=== PATIENT | female | born 1985 | race Caucasian/White ===

== ENCOUNTER → 2017-11-04 15:38 | Outpatient (CLI) | payer BC, SELFPAY ==
[2017-11-11 10:43] LABS: HPV Reflexed? NOT INDICATED
== END ==
PROVIDERS: Visit Provider Obstetrics & Gynecology
DX: Z12.4 Encounter for screening for malignant neoplasm of cervix (principal)
CPT/HCPCS: 88175; G0145

== ENCOUNTER → 2018-07-27 16:08 | Outpatient (CLI) | payer BC, SELFPAY | PROVIDERS: Family Provider Physician Assistant; PCP Physician Assistant; Referring Provider Otolaryngology Otolaryngology/Facial Plastic Surgery; Visit Provider Otolaryngology Otolaryngology/Facial Plastic Surgery | DX: J34.89 Other specified disorders of nose and nasal sinuses (principal); J32.9 Chronic sinusitis, unspecified | CPT/HCPCS: 87070; 87077; 87186; 87205 ==

== ENCOUNTER → 2018-11-30 | Outpatient (CLI) | payer BC, SELFPAY ==
[2018-12-08 17:07] LABS: HPV Reflexed? NOT INDICATED
== END | disposition home or self-care (01) ==
PROVIDERS: Visit Provider Obstetrics & Gynecology
DX: Z12.4 Encounter for screening for malignant neoplasm of cervix (principal)
CPT/HCPCS: 87624; 88175; G0145

== ENCOUNTER → 2020-02-08 14:52 | Outpatient (CLI) | payer BC, SELFPAY ==
[2020-02-13 14:45] LABS: HPV Reflexed? NOT INDICATED
== END ==
PROVIDERS: Visit Provider Obstetrics & Gynecology
DX: Z12.4 Encounter for screening for malignant neoplasm of cervix (principal)
CPT/HCPCS: 88175; G0145

== ENCOUNTER → 2021-02-12 15:38 | Outpatient (CLI) | payer BC, SELFPAY ==
[2021-02-18 23:45] LABS: HPV Reflexed? NOT INDICATED
== END ==
PROVIDERS: Visit Provider Obstetrics & Gynecology
DX: Z12.4 Encounter for screening for malignant neoplasm of cervix (principal)
CPT/HCPCS: 88175; G0145

== ENCOUNTER → 2022-06-19 | Outpatient (CLI) | payer BC, SELFPAY ==
[2022-06-25 21:41] LABS: HPV APTIMA, High Risk Negative (Negative)
== END | disposition home or self-care (01) ==
LOC: LABSPEC 09:34
PROVIDERS: Visit Provider Obstetrics & Gynecology
DX: Z12.4 Encounter for screening for malignant neoplasm of cervix (principal)
CPT/HCPCS: 87624; 88175; G0145

== ENCOUNTER → 2022-09-08 | Outpatient (CLI) | payer BC, SELFPAY ==
[2022-09-08 13:16] LABS: Estradiol < 11.0 pg/mL; Follicle Stimulating Hormone 5.1 mIU/mL; Luteinizing Hormone 2.8 mIU/mL; Prolactin 20.4 ng/mL; T4 Free Direct 1.15 ng/dL (0.76-1.46); Thyroid Stim Hormone (TSH) 1.57 uIU/mL (0.358-3.74)
[2022-09-11 14:50] LABS: Testosterone Free <0.2 pg/mL (0.0-4.2)
== END | disposition home or self-care (01) ==
LOC: WOBLAB 11:18
PROVIDERS: Visit Provider Student in an Organized Health Care Education/Training Program
DX: N64.4 Mastodynia (principal)
CPT/HCPCS: 36415; 82670; 83001; 83002; 84146; 84402; 84439; 84443

== ENCOUNTER → 2022-09-15 | Outpatient (CLI) | payer BC, SELFPAY ==
--- NOTE | 2022-09-15 08:41 | US_ITS ---
STUDY: ULTRASOUND BREAST - LEFT REASON FOR EXAM: Female, 37 years old. Palpable lump left breast. TECHNIQUE: Axial and longitudinal images of the LEFT breast were performed with a high resolution ultrasound transducer. # OF IMAGES: 49 COMPARISON: Comparison is made with prior mammogram done earlier in the day. FINDINGS: LEFT Breast: The palpable lump corresponds to a 1.5 cm x 1.3 cm x 1.6 cm simple cyst at the 2:00 position breast at 3 cm from the nipple. There is also evidence of 2, subcentimeter cysts adjacent to the dominant cystic structure. Incidental note is made of a 6 mm x 7 mm x 3 mm benign-appearing left axillary lymph node. . US/Breast Limited Unilateral IMPRESSION: The palpable lump corresponds to a 1.5 cm x 1.3 cm x 1.6 cm cyst at the 2:00 position breast at 3 some some nipple. ASSESSMENT CATEGORY: BIRADS Category 2: Benign. A letter regarding these results will be sent to the patient by the facility within 30 days. Electronically Signed: Kel Dimas MD at 14:32 EDT ,
--- NOTE | 2022-09-15 08:41 | BI_ITS ---
MAMMOGRAPHY - BILATERAL DIAGNOSTIC REASON FOR EXAM: Female, 37 years old. Left breast lump. PERTINENT HISTORY: Grandmother with breast cancer. TECHNIQUE: Digital bilateral breast dilia (3D mammographic acquisition) in the CC and MLO projections. 2-D mediolateral oblique (MLO) and craniocaudad (CC) views of both breasts were obtained. CAD: Full Field Digital Mammography with Computer Added Detection was performed. COMPARISON: None. Baseline examination. FINDINGS: Breast Composition: The breasts are extremely dense, which lowers the sensitivity of mammography. There are no dominant masses or suspicious calcifications. No other significant abnormalities are identified. BI/DIAG MAMM W/CAD, BILAT IMPRESSION: Negative diagnostic mammogram. With the patient''s history of a palpable lump in the left breast, correlation with ultrasound is recommended. ASSESSMENT CATEGORY: BIRADS Category 0: Incomplete. Need additional imaging evaluation. A letter regarding these results will be sent to the patient by the facility within 30 days. Approximately 10% of breast cancers are not detected by mammography. A normal mammogram should not delay biopsy of a clinically suspicious abnormality. Electronically Signed: Kel Dimas MD at 11:00 EDT ,
== END | disposition home or self-care (01) ==
PROVIDERS: PCP Physician Assistant; Referring Provider Student in an Organized Health Care Education/Training Program; Visit Provider Student in an Organized Health Care Education/Training Program
DX: N63.20 Unspecified lump in the left breast, unspecified quadrant (principal)
CPT/HCPCS: 76642; 77062; 77066; G0279

== ENCOUNTER → 2025-04-23 | Outpatient (CLI) | payer BC, SELFPAY ==
--- NOTE | 2025-04-23 07:13 | BI_ITS ---
EXAM: SCRN MAMM (CAD)W/VIDHI BILAT DATE: 04/23/2025 CLINICAL HISTORY: F, Age 40 y/o , SCREENING TECHNIQUE: Procedure Code: [id number] Modality: MG Procedure: SCRN MAMM (CAD)W/VIDHI BILAT COMPARISON: Prior exam(s) dated 09/15/2022. FINDINGS: TISSUE DENSITY: The breasts are heterogeneously dense, which may obscure small masses. Bilateral Breast Mammographic Findings: No significant masses, calcifications or other abnormalities are identified. There are nipple rings bilaterally. Benign round microcalcifications are seen in both breasts. BI/SCRN MAMM (CAD)W/VIDHI BILAT IMPRESSION: Benign screening mammogram. OVERALL FINAL ASSESSMENT BI-RADS 2: BENIGN RECOMMENDATION: Routine annual follow-up in 1 Year Additional Recommendation none A letter with findings and recommendations will be mailed to the patient. Reading Location: [id number]
--- OUTSIDE RECORDS SUMMARY | 2025-04-23 07:14 | XMS RPT_ITS | CCD ---
Author Organization [facility] Care Team Providers Care Acid Tank Liner Name Role Phone Shimon Smart MD Unavailable Ila Chen PA-C Primary Care Provider [phone] Ila Chen PA-C Primary Care Provider [phone] Ila Chen PA-C Primary Care Provider [phone] TREASURE ESCALONA Attending Unavailable Ila CHEN Primary Care Unavailable Ila Chen PA-C Primary Care Provider [phone] PHYSICIAN, NOT RECORDED Primary Care Physician U navailable Ila Chen PA-C Primary Care Provider [phone] Prince Chen PA-C Primary Care Provider Unavailable Haagen C++ PROFESSOR.Debbie KELLY Unavailable Suppan C++ PROFESSOR.ROBIN Nichole A Unavailable Suppan C++ PROFESSOR.ROBIN, Nichole A Unavailable [phone] Suppan C++ PROFESSOR.ROBIN, Nichole A Primary Care Provi forrest SUPPWILLOW NICHOLE A Referring Unavailable PRINCE CHEN Primary Care Unavailable PRINCE CHEN Primary Care Unavailable MARBELLA JAFFE Attending Unavailable SUPPWILLOW NICHOLE A Referring Unavailable PRINCE CHEN Primary Care Unavailable SUPPGALILEO DAUGHERTYNICHOLE A Attending Unavailable PRINCE CHEN Primary Care Unavailable PRINCE CHEN Referring Unavailable PRINCE CHEN Primary Care Unavailable Chen PA-CPrince Primary Care Provider Unavailable Suppan C++ PROFESSOR.ROBIN, Nichole A Unavailable Ila Carver Primary Care Unavailable Sylvester ZAVALA, Marbella Referring Unavailable Sylvester ROLLER PRINT TENDER, Marbella Attending Unavailable Assessment, Health Risk Attending Unavaila ble Ila Carver Primary Care Unavailable Allergies Allergy Classification Reported Allergen(s) Allergy Type Date of Onset Reaction(s) Facility (1 source) House dust mite; Translations: [DUST MITES] allergy to substance 0 [facility] Work Phone: (1 source) Kingdom Animalia; Translations: [ANIMALS] allergy to substance 0 [facility] Work Phone: (1 source) Mold Extract; Translations: [MOLD] Drug Allergy 0 [facility] Work Phone: (1 source) PLANT POLLENS; Translations: [PLANT POLLENS] allergy to substance 0 hay fever [facility] Work Phone: (1 source) STINGING INSECTS; Translations: [STINGING INSECTS] allergy to substance 0 [facility] Work Phone: (20 sources) Seasonal allergy; Translations: [SEASONAL ALLERGIES] Propensity to adverse reactions 3 Other: See Comments [facility] Medications Current Medications Medication Drug Class(es) Dates Sig (Normalized) Sig (Original) 12 hr buPROPion hydrochloride 150 mg extended release oral tablet (13 sources) Aminoketone Start: 03-20-2024 End: 09-16-2024 take 1 tablet by mouth twice daily buPROPion SR (WELLBUTRIN SR) 150 mg 12 hr tablet Indications: Weight loss Take 1 tablet by mouth two times a day. 60 tablet 5 03/20/2024 Active busPIRone hydrochloride 5 mg oral tablet (12 sources) Start: 12-23-2023 End: 08-06-2024 take 1 tablet by mouth three times daily as needed busPIRone (BUSPAR) 5 mg tablet Indications: Adjustment reaction with anxiety and depression Take 1 tablet by mouth three times a day as needed. 90 tablet 1 05/08/2024 08/06/2024 Active dicloxacillin 500 mg oral capsule (1 source) Penicillin-class Antibacterial Start: 07-17-2023 End: 07-27-2023 dicloxacillin 500 mg oral capsule Dose : 500 mg = 1 cap(s), Oral, q6h, X 10 day(s), # 40 cap(s), 0 Refill(s), 07/27/23 2:46:00 PM EST, 88.5 Start Date: 07/17/23 Stop Date: 07/27/23 Status: Ordered dilTIAZem (20 sources) Calcium Channel Freida Start: 04-18-2019 Diltiazem 2% Ointment (rectal fissures) Apply to rectum 2-3 times daily and as needed. (TAKE TO [facility] TO FILL) 60 g 2 04/18/2019 Active Comment on above: Apply to rectum 2-3 times daily and as needed. (TAKE TO [facility] TO FILL) [id number] 0.3 ml EPINEPHrine 1 mg/ml auto-injector (20 sources) alpha-Adrenergic Agonist, beta-Adrenergic Agonist, Catecholamine Start: 05-13-2023 End: 12-04-2024 EPINEPHrine (EPIPEN 2-HALI) 0.3 mg/0.3 mL auto-injector Indications: Allergic reaction, sequela Inject 0.3 mL intramuscularly as needed. For allergic reaction.Seek emergent medical care immediately after use.Disp:1 2-pakw/hardware trainer 2 each 2 12/04/2024 Active Start: 08-29-2020 EPINEPHrine (E PIPEN 2-HALI) 0.3 mg/0.3 mL auto-injector Inject 0.3 mL intramuscularly as needed. For allergic reaction.Seek emergent medical care immediately after use.Disp:1 2-pakw/hardware trainer 1 Each 2 08/29/2020 Active Comment on above: Inject 0.3 mL intram uscularly as needed. For allergic reaction.Seek emergent medical care immediately after use.Disp:1 2-pakw/hardware trainer Ethinyl Estradiol / Levonorgestrel (20 sources) Progestin, Estrogen, Progestin-containing Intrauterine Device Start: take 1 tablet by mouth once daily L-Norgest and E Estradiol-E Estrad 0.15 mg-30 mcg (84)/10 mcg (7) Take 1 tablet by mouth once daily. 91 tablet 4 10/19/2024 Active Start: 09-27-2023 End: 10-19-2024 take 1 tablet by mouth once daily L-Norgest and E Estradiol-E Estrad 0.15 mg-30 mcg (84)/10 mcg (7) Take 1 tablet by mouth once daily. 91 tablet 4 09/27/2023 10/19/2024 Discontinued Start: 09-27-2023 take 1 tablet by stephanie th once daily L-Norgest and E Estradiol-E Estrad 0.15 mg-30 mcg (84)/10 mcg (7) Take 1 tablet by mouth once daily. 91 tablet 4 09/27/2023 Active Start: 08-10-2023 End: 09-27-2023 take 1 tablet by mouth once daily L-Norgest and E Estradiol-E Estrad 0.15 mg-30 mcg (84)/10 mcg (7) Take 1 tablet by mouth once daily. 91 tablet 1 08/10/2023 09/27/2023 Discontinued Start: 08-10-2023 take 1 tablet by stephanie th once daily L-Norgest and E Estradiol-E Estrad 0.15 mg-30 mcg (84)/10 mcg (7) Take 1 tablet by mouth once daily. 91 tablet 1 08/10/2023 Active Start: 07-20-2019 ASHLYNA 0.15-0 .03 &0.01 MG TABS 1 tablet once daily LEVONORGEST-ETH ESTRAD -DAY [id number] Marli Olivera RN End: 08-10-2023 take 1 tablet by mouth once daily L-Norgest and E Estradiol-E Estrad 0.15 mg-30 mcg (84)/10 mcg (7) Take 1 tablet by mouth once daily. 0 08/10/2023 Discontinued take 1 tablet by stephanie th once daily L-Norgest and E Estradiol-E Estrad 0.15 mg-30 mcg (84)/10 mcg (7) Take 1 tablet by mouth once daily. 0 Active take 1 tablet by stephanie th once daily L-Norgest and E Estradiol-E Estrad (CAMRESE) 0.15 mg-30 mcg (84)/10 mcg (7) 3MPk Take 1 tablet by mouth once daily. 0 Active Comment on above: Take 1 tablet by stephanie th once daily. fluconazole 150 mg oral tablet (2 sources) Azole Antifungal Start: End: take 1 tablet by mouth once fluconazole (DIFLUCAN) 150 mg tablet Take 1 tablet by mouth one time only for 1 dose. 1 tablet 4 03/23/2024 03/23/2024 Active Start: 09-27-2023 End: 09-27-2023 take 1 tablet by mouth once fluconazole (DIFLUCAN) 150 mg tablet Take 1 tablet by mouth one time only for 1 dose. 1 tablet 4 09/27/2023 09/27/2023 Active Comment on above: Take 1 tablet by stephanie th one time only for 1 dose. hydrOXYzine hydrochloride 25 mg oral tablet (20 sources) Antihistamine Start: 05-13-20 23 take 25-50 mg by mouth every six hours as needed hydrOXYzine HCl (ATARAX) 25 mg tablet Take 1-2 tablets by mouth every 6 hours as needed. For itching. 120 tablet 3 05/13/2023 Active Start: 10-30-2020 take 25-50 mg by stephanie th every six hours as needed hydrOXYzine HCl (ATARAX) 25 mg tablet Take 1-2 tablets by mouth every 6 hours as needed. For itching. 120 tablet 3 10/30/2020 Active Comment on above: Take 1-2 tablets by mouth every 6 hours as needed. For itching. levocetirizine dihydrochloride 5 mg oral tablet (20 sources) Histamine-1 Receptor Antagonist Start: 05-13-20 23 take 1 tablet by mouth once daily levocetirizine (XYZAL) 5 mg tablet Take 1 tablet by mouth once daily. 90 tablet 3 05/13/2023 Active take 1 tablet by mouth once meli y levocetirizine (XYZAL) 5 mg tablet Take 5 mg by mouth once daily. 0 Active take 1 tablet by mouth twice gene ly levocetirizine (XYZAL) 5 mg tablet Take 5 mg by mouth twice daily. 0 Active Comment on above: Take 5 mg by mouth o nce daily. 10 mg at bedtime Take 5 mg by mouth t wice daily. Take 5 mg by mouth o nce daily. Take 1 tablet by stephanie th once daily. levothyroxine sodium 0.1 mg oral tablet (20 sources) l-Thyroxine Start: take 1 tablet by mouth once daily levothyroxine (SYNTHROID) 100 mcg tablet Take 1 tablet by mouth once daily. 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 90 capsule 0 03/17/2022 06/15/2022 Active Comment on above: Take 1 capsule by mo uth daily before breakfast. take 1 capsule by mo uth once daily BEFORE BREAKFAST LORazepam 0.5 mg oral tablet (6 sources) Benzodiazepine Start: End: take 1 tablet by mouth once daily as needed for anxiety LORazepam (ATIVAN) 0.5 mg Indications: Stress reaction Take 1 tablet by mouth once daily as needed (anxiety) for up to 90 days. 15 tablet 0 02/11/2023 05/12/2023 Active Start: 01-27-2022 End: 02-26-2022 take 1 tablet by mouth once daily as needed for anxiety LORazepam (ATIVAN) 0.5 mg Indications: Stress reaction Take 1 tablet by mouth once daily as needed (anxiety) for up to 30 days. 15 tablet 0 01/27/2022 02/26/2022 Active Comment on above: Take 1 tablet by stephanie th once daily as needed (anxiety) for up to 30 days. Take 1 tablet by stephanie th once daily as needed (anxiety) for up to 90 days. meclizine hydrochloride 25 mg oral tablet (20 sources) Antiemetic Start: 11-30-19 take 1 tablet by mouth every six hours as needed meclizine 25 mg Tab Take 1 tablet by mouth every 6 hours as needed. FOR DIZZINESS 30 tablet 1 11/29/2012 Active Comment on above: Take 1 tablet by stephanie th every 6 hours as needed. FOR DIZZINESS metroNIDAZOLE 500 mg oral tablet (4 sources) Nitroimidazole Antimicrobial Start: 09-23-19 End: 09-30-19 take 1 tablet by mouth twice daily metroNIDAZOLE (FLAGYL) 500 mg tablet Take 1 tablet by mouth two times a day for 7 days. 14 tablet 0 09/23/2023 09/30/2023 Active Comment on above: Take 1 tablet by stephanie th two times a day for 7 days. montelukast 10 mg oral tablet (20 sources) Leukotriene Receptor Antagonist Start: 05-13-20 End: 12-17-19 take 1 tablet by mouth once daily at bedtime montelukast (SINGULAIR) 10 mg tablet Indications: Seasonal allergic rhinitis, unspecified trigger Take 1 tablet by mouth daily at bedtime. 90 tablet 1 06/19/2024 Active Start: 01-05-2023 take 1 tablet by stephanie th at bedtime montelukast (SINGULAIR) 10 mg tablet take 1 tablet by mouth at bedtime 30 tablet 5 01/05/2023 Active Start: 04-27-2022 take 1 tablet by stephanie th once daily at bedtime montelukast (SINGULAIR) 10 mg tablet Take 1 tablet by mouth daily at bedtime. 30 tablet 7 04/27/2022 Active Start: 08-12-2021 End: 04-24-2022 take 1 tablet by mouth once daily at bedtime montelukast (SINGULAIR) 10 mg tablet take 1 tablet by mouth once daily at bedtime 30 tablet 7 08/12/2021 04/24/2022 Discontinued Comment on above: take 1 tablet by stephanie th once daily at bedtime Take 1 tablet by stephanie th daily at bedtime. take 1 tablet by stephanie th at bedtime nitrofurantoin, macrocrystals 25 mg / nitrofurantoin, monohydrate 75 mg oral capsule (6 sources) Nitrofuran Antibacterial Start: 09-22-19 End: 09-27-19 take 1 capsule by mouth twice daily nitrofurantoin monohydrate and macrocrystal (MACROBID) 100 mg capsule Take 1 capsule by mouth two times a day for 5 days. 10 capsule 0 09/22/2023 09/27/2023 Discontinued Comment on above: [facility] two [facility] a day for 5 days. 1 ml omalizumab 150 mg/ml prefilled syringe (20 sources) Anti-IgE Start: 05-13-20 End: 09-27-19 omalizumab (XOLAIR) 150 mg/mL syringe Inject 2 mL subcutaneously every 6 weeks. 2 Each 05/13/2023 09/27/2023 Discontinued Start: 01-13-2023 omalizumab (XO LAIR) 150 mg/mL syringe Inject 2 mL subcutaneously every 6 weeks. 2 Each 01/13/2023 Active Start: 12-31-2021 End: 01-13-2023 XOLAIR 150 mg/mL syringe INJ ECT 2 SYRINGES UNDER THE SKIN EVERY 4 WEEKS 2 Each 12/31/2021 01/13/2023 Discontinued Start: 01-13-2021 End: 12-14-2021 omalizumab 300 mg syringe (X OLAIR) Start: 01-02-2021 End: 12-31-2021 omalizumab (XOLAIR) 150 mg/m L Inject 2 mL subcutaneously every 4 weeks. 2 Syringe 11 01/02/2021 12/31/2021 Discontinued Comment on above: Inject 2 mL subcutan eously every 4 weeks. INJECT 2 SYRINGES UN FORREST THE SKIN EVERY 4 WEEKS Inject 2 mL subcutan eously every 6 weeks. 72 hr scopolamine 0.0139 mg/hr transdermal system (20 sources) Anticholinergic Start: 07-16-19 scopolamine (TRANSDERM-SCOP) patch 1.5 mg/72 hr (delivers 1 mg over 3 days) Indications: Motion sickness, subsequent encounter Apply 1 Patch as directed every 72 hours. Apply patch to skin behind ear 4hrs prior to travel. 5 Patch 1 07/16/2022 Active Comment on above: Apply 1 Patch as dir ected every 72 hours. Apply patch to skin behind ear 4hrs prior to travel. sertraline 100 mg oral tablet (20 sources) Serotonin Reuptake Inhibitor Start: 04-27-20 23 End: 03-20-20 25 take 1 tablet by mouth once daily sertraline (ZOLOFT) 100 mg tablet Indications: Adjustment reaction with anxiety and depression Take 1 tablet by mouth once daily. 90 tablet 3 03/20/2024 03/20/2025 Active Start: 10-19-2022 End: 01-21-2023 take 1 tablet by mouth once daily sertraline (ZOLOFT) 100 mg tablet Take 1 tablet by mouth once daily. 30 tablet 2 01/21/2023 Active Start: 07-27-2022 End: 10-19-2022 take 1 tablet by mouth once daily sertraline (ZOLOFT) 50 mg tablet Indications: Stress reaction Take 1 tablet by mouth once daily. 90 tablet 1 07/27/2022 10/19/2022 Discontinued (Course of therapy completed) Start: 01-27-2022 take 1 tablet by stephanie th once daily sertraline (ZOLOFT) 50 mg tablet Indications: Stress reaction Take 1 tablet by mouth once daily. 90 tablet 1 01/27/2022 Active Comment on above: Take 1 tablet by stephanie th once daily. Turmeric extract (20 sources) TURMERIC ORAL Ta ke by mouth. Active TURMERIC ORAL Ta ke by mouth. 0 Active TURMERIC ORAL Ta ke by mouth once daily. Turmeric and phuc 0 Active Comment on above: Take by mouth once d aily. Turmeric and phuc Take by mouth. valACYclovir 1000 mg oral tablet (5 sources) Herpesvirus Nucleoside Analog DNA Polymerase Inhibitor, Herpes Simplex Virus Nucleoside Analog DNA Polymerase Inhibitor, Herpes Zoster Virus Nucleoside Analog DNA Polymerase Inhibitor Start: End: 5 take 1 tablet by mouth once daily valACYclovir (VALTREX) 1 gram tablet Take 1 tablet by mouth once daily for 5 days. 5 tablet 3 08/17/2024 08/22/2024 Active Start: 10-26-2023 End: 10-31-2023 take 1 tablet by mouth once daily valACYclovir (VALTREX) 1 gram tablet Take 1 tablet by mouth once daily for 5 days. 5 tablet 3 10/26/2023 10/31/2023 Active Start: 09-27-2023 End: 10-04-2023 valACYclovir (VALTREX) 1 gra m tablet Take 1 tablet by mouth two times a day for 7 days. FOR 7 DAYS. 14 tablet 0 09/27/2023 10/04/2023 Active Comment on above: Take 1 tablet by stephanie th two times a day for 7 days. FOR 7 DAYS. Completed/Discontinued Medications Medication Drug Class(es) Dates Sig (Normalized) Sig (Original) acetaminophen 500 mg oral tablet (1 source) Start: 07-21-2019 TYLENOL EXTRA STRENGTH 500 MG TABS 2 tablets every 6 hours as needed ACETAMINOPHEN [id number] Shimon Smart MD APPLE CIDER VINEGAR TABS (1 source) Start: 07-20-2019 APPLE CIDER VINEGAR TABS daily APPLE CIDER VINEGAR TABS [id number] Marli Olivera RN Ascorbic Acid (1 source) Vitamin C Start: 07-20-2019 VITAMIN C TABS daily ASCORBIC ACID TABS [id number] Marli Olivera RN Biotin (15 sources) End: 10-19-2024 BIOTIN ORAL Take by mouth. 10/19/2024 Discontinued BIOTIN ORAL Take by mouth. Active BIOTIN ORAL Take by mouth. 0 Active cholecalciferol 0.025 mg oral tablet (9 sources) Vitamin D Start: 07-20-2019 cholecalciferol (VITAMIN D3) 1,000 unit tab tablet Vitamin D VITAMIN D TABS daily CHOLECALCIFEROL TABS [id number] Marli Olivera RN 07-20-2019 [facility] ([id number]) 0 07/20/2019 Active Comment on above: Vitamin D VITAMIN D TABS daily CHOLECALCIFEROL TABS [id number] Marli Olivera RN 07-20-2019 [facility] ([id number]) cholecalciferol, vitamin D3, (VITAMIN D3 ORAL) (20 sources) End: 10-19-2024 take 5000 [IU] by mouth once daily cholecalciferol, vitamin D3, (VITAMIN D3 ORAL) Take 5,000 Units by mouth once daily. 10/19/2024 Discontinued take 5000 [IU] by mouth once gene ly cholecalciferol, vitamin D3, (VITAMIN D3 ORAL) Take 5,000 Units by mouth once daily. Active take 5000 [IU] by mouth once gene ly cholecalciferol, vitamin D3, (VITAMIN D3 ORAL) Take 5,000 Units by mouth once daily. 0 Active Comment on above: Take 5,000 Units by mouth once daily. COMPOUNDED PRESCRIPTION (9 sources) Start: 019 COMPOUNDED PRESCRIPTION Indications: Anal fissure Apply to rectum 2-3 times daily and as needed. 60 g 1 04/18/2019 Active Comment on above: Apply to rectum 2-3 times daily and as needed. diphenhydrAMINE hydrochloride 25 mg oral capsule (20 sources) Histamine-1 Receptor Antagonist End: 025 take 1 capsule by mouth every six hours as needed diphenhydrAMINE (BENADRYL) 25 mg capsule Take 25 mg by mouth every 6 hours as needed. 10/19/2024 Discontinued Comment on above: Take 25 mg by mouth every 6 hours as needed. docosahexaenoic acid/epa (FISH OIL ORAL) (20 sources) docosahexaenoic acid/epa (FISH OIL ORAL) Take by mouth once daily. 0 Active Comment on above: Take by mouth once d aily. doxepin hydrochloride 10 mg oral capsule (12 sources) Tricyclic Antidepressant Start: 022 doxepin capsule 10 mg 2 capsules at bedtime for 3 to 4 weeks, then one capsule at bedtime for 3 to 4 weeks 60 capsule 1 12/11/2021 Active Start: 06-26-2021 take 1-2 capsules by mouth once daily at bedtime doxepin capsule 25 mg Take 1-2 capsules by mouth daily at bedtime. 180 capsule 5 06/26/2021 Active Comment on above: Take 1-2 capsules by mouth daily at bedtime. 2 capsules at bedtim e for 3 to 4 weeks, then one capsule at bedtime for 3 to 4 weeks famotidine 10 mg oral tablet (9 sources) Histamine-2 Receptor Antagonist take 2 tablets by mouth once daily famotidine (PEPCID) 10 mg tablet Take 20 mg by mouth once daily. 0 Active take 3 tablets by mouth once gene ly famotidine (PEPCID) 10 mg tablet Take 30 mg by mouth once daily. 0 Active Comment on above: Take 30 mg by mouth once daily. Take 20 mg by mouth once daily. 24 hr fexofenadine hydrochloride 180 mg / pseudoephedrine hydrochloride 240 mg extended release oral tablet (1 source) alpha-Adrenergic Agonist, Histamine-1 Receptor Antagonist Start: 07-20-2019 EVA-D ALLERGY & CONGESTION 180-240 MG [id number] 1 tablet once daily FEXOFENADINE-PSEUDOEPHE ADELITA [id number] Marli Olivera RN Fish Oils (1 source) Start: 07-20-2019 FISH OIL CAPS daily OMEGA-3 FATTY ACIDS CAPS [id number] Marli Olivera RN Glucosamine (20 sources) End: 12-23-2023 glucosamine sulfate (GLUCOSAMINE ORAL) Take by mouth once daily. 0 12/23/2023 Discontinued (Discontinued by Patient) glucosamine sulf ate (GLUCOSAMINE ORAL) Take by mouth once daily. 0 Active glucosamine sulf ate (GLUCOSAMINE ORAL) Take by mouth. 0 Active Comment on above: Take by mouth. Take by mouth once d aily. ibuprofen 200 mg oral tablet (1 source) Nonsteroidal Anti-inflammatory Drug Start: 07-21-2019 IBUPROFEN 200 MG TABS 2 tablets every 4 hours as needed IBUPROFEN [id number] Shimon Smart MD Lactobacillus (1 source) Start: 07-20-2019 PROBIOTIC ACIDOPHILUS CAPS daily LACTOBACILLUS [id number] Marli Olivera RN Lactobacillus acidophilus (9 sources) Lactobacillus acidophilus (PROBIOTIC ORAL) Take by mouth once daily. 0 Active Comment on above: Take by mouth once d aily. Magnesium (20 sources) End: 12-23-2023 Magnesium 250 mg tab Take by mouth once daily. 0 12/23/2023 Discontinued (Discontinued by Patient) Magnesium 250 mg tab Take by mouth once daily. 0 Active MAGNESIUM ORAL T aminata by mouth. 0 Active Comment on above: Take by mouth. Take by mouth once d aily. predniSONE 10 mg oral tablet (9 sources) Start: predniSONE (DELTASONE) 10 mg tablet Take 4 tablets daily for 5 days, 3 tabs daily for 1 day, 2 tabs daily for 1 day and 1 tab daily for one day 26 tablet 0 08/15/2020 Active Comment on above: Take 4 tablets daily for 5 days, 3 tabs daily for 1 day, 2 tabs daily for 1 day and 1 tab daily for one day quercetin 100 mg / resveratrol 100 mg oral tablet (9 sources) take 2 tablets by mouth once daily resveratrol-quercetin 100-100 mg tab Take 2 tablets by mouth once daily. 0 Active Comment on above: [facility] 2 [facility]. triamcinolone acetonide 0.055 mg/actuat metered dose nasal spray (20 sources) Corticosteroid End: 025 triamcinolone acetonide (NASACORT ALLERGY) 55 mcg nasal inhaler Use 2 Sprays in the nose as needed. 10/19/2024 Discontinued Comment on above: Use 2 Sprays in the nose as needed. 24 hr venlafaxine 75 mg extended release oral capsule (1 source) Serotonin and Norepinephrine Reuptake Inhibitor Start: 020 VENLAFAXINE HCL ER 75 MG [id number] 1 capsule once daily VENLAFAXINE HCL [id number] Marli Olivera RN CHOLECALCIFEROL TABS (1 source) Start: 020 VITAMIN D TABS daily CHOLECALCIFEROL TABS [id number] Marli Olivera RN Problems Active Problems Problem Classification Problem Date Documented Date Episodic/Chronic Adjustment disorders (20 sources) Adjustment disorder with mixed anxiety and depressed mood; Translations: [Adjustment disorder with mixed anxiety and depressed mood] Onset: 03-07-2020 03-07-2020 Chronic Anxiety disorders (4 sources) Acute stress disorder; Translations: [Acute stress reaction] Chronic Contraceptive and procreative management (2 sources) Oral contraception; Translations: [Encounter for surveillance of contraceptive pills] Onset: 10-19-2024 10-19-2024 Episodic Genitourinary symptoms and ill-defined conditions (1 source) Dysuria; Translations: [Dysuria] 09-22-2023 Episodic Immunizations and screening for infectious disease (1 source) Encounter for screening for human papillomavirus (HPV); Translations: [Special screening examination for human papillomavirus (HPV)] Onset: 10-19-2024 Episodic Other female genital disorders (1 source) Lesion of vulva; Translations: [Other specified noninflammatory disorders of vulva and perineum] 09-27-2023 Episodic Other injuries and conditions due to external causes (1 source) Motion sickness; Translations: [Motion sickness, subsequent encounter] Episodic Other injuries and conditions due to external causes (1 source) Allergic reaction; Translations: [Allergy, unspecified, sequela] 12-04-2024 Episodic Other nutritional; endocrine; and metabolic disorders (2 sources) Weight loss; Translations: [Abnormal weight loss] 03-20-2024 Episodic Other screening for suspected conditions (not mental disorders or infectious disease) (16 sources) Patient encounter status; Translations: [Encounter for screening mammogram for malignant neoplasm of breast] Onset: 03-09-2024 04-07-2023 Episodic Other upper respiratory disease (1 source) Allergic rhinitis; Translations: [Allergic rhinitis, unspecified] Chronic Other upper respiratory disease (2 sources) Seasonal allergic rhinitis; Translations: [Other seasonal allergic rhinitis] 02-07-2024 Chronic Skin and subcutaneous tissue infections (1 source) Cellulitis; Translations: [Cellulitis, unspecified] Onset: 07-17-2023 Episodic Thyroid disorders (20 sources) 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; Translations: [Other specified hypothyroidism] Onset: 09-13-2009 11-03-2019 Chronic Urinary tract infections (1 source) Urinary tract infectious disease; Translations: [Urinary tract infection, site not specified] 09-22-2023 Episodic Past or Other Problems Problem Classification Problem Date Documented Da te Episodic/Chronic Allergic reactions (20 sources) Chronic idiopathic urticaria; Translations: [Idiopathic urticaria] Onset: 08-15-2020 08-15-2020 Episodic Other connective tissue disease (1 source) Peroneal tendinitis; Translations: [Peroneal tendinitis, right leg] Onset: 07-21-2019 07-21-2019 Episodic Other eye disorders (20 sources) Myogenic ptosis of right eye; 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] Onset: 10-08-2015 Resolved: 11-13-2015 11-13-2015 Episodic Other nutritional; endocrine; and metabolic disorders (1 source) Abnormal weight loss; Translations: [Weight loss] Onset: 03-20-2024 Episodic Unclassified (1 source) Problem Unclassified (2 sources) Patient encounter status 10-19-2024 Results Test Name Value Interpretation Reference Range Facility Glucoseon 03-29-2025 Glucose [Mass/Vol] 103 mg/dL High 70-99 [facility] Comment on above: Performed By: #### L 500.4100, L501.0100 #### [facility] [address] [place], [address] Lipid Profileon 03-29-2025 CHOL:HDL 2.37 Normal [facility] Comment on above: Performed By: #### L 500.4100, L501.0100 #### [facility] [address] [place], [address] Cholesterol [Mass/Vol] 155 mg/dL Normal <=200 [facility] Comment on above: Result Comment: Chol esterol level, Desirable <200 mg/dL Borderline high cholesterol 200-239 mg/dL High cholesterol >=240 mg/dL Recommendations of the NCEP Adult Treatment Panel for the following risk-cutoff thresholds for the [place] population. Performed By: #### L 500.4100, L501.0100 #### [facility] [address] [place], [address] Cholesterol in HDL [Mass/Vol] 65 mg/dL Normal [facility] Comment on above: Result Comment: Leticia onal Cholesterol Education Program (NCEP) guidelines: <40 mg/dL: Low HDL-cholesterol (major risk factor for CHD) >= 60 mg/dL: High HDL-cholesterol (negative risk factor for CHD) HDL-cholesterol is affected by a number of factors, e.g. smoking, exercise, hormones, sex and age. Performed By: #### L 500.4100, L501.0100 #### [facility] [address] [place], [address] Cholesterol in LDL [Mass/Vol] 68 mg/dL Normal [facility] Comment on above: Result Comment: Bord zohjun=564-716 mg/dL Higher Soqa=612 mg/dL or greater Friedwald Equation for LDL-C Performed By: #### L 500.4100, L501.0100 #### [facility] [address] [place], [address] Cholesterol in VLDL [Mass/Vol] 21 mg/dL Normal 5-40 [facility] Comment on above: Performed By: #### L 500.4100, L501.0100 #### [facility] [address] [place], [address] Triglyceride [Mass/Vol] 107 mg/dL Normal [facility] Comment on above: Result Comment: The drugs N-Acetylcysteine and Metamizole may falsely depress this assay. Normal range: <150 mg/dL Borderline High: 150-199 mg/dL High: 200-499 mg/dL Very High: >500 mg/dL Performed By: #### L 500.4100, L501.0100 #### [facility] [address] [place], [address] [facility] MARBELLA PAYAN ([id number]) 1985 F Date Time Provider Department 12/20/24 NICHOLE CORBIN During your visit today, we recorded the following information about you: Asia Mcgregor RN 12/20/2024 2:39 PM Signed Patient calling in. Reports out of thyroid medication. Requesting tablet form. Has been without thyroid medication for 3 days. [facility]. Thank you. Marbella Sesay [facility] [[email or web address]] [facility] My Chart Rx Pool (supporting Nichole Corbin, C++ PROFESSOR.PATTERN DRUM MAKER)2 hours ago (11:40 AM) Can you make my perscription the tablet form now...? Instead of the liquid filled pill (this one is really expensive). [facility] [place] says you need to send in a new perscription. I haven't had my pill in 3 days...need tiesha, please Asia Mcgregor, Pj Mcgowan MD 12/20/2024 2:48 PM Signed sent Shai Lockwood LPN 12/20/2024 5:05 PM Signed Attempted to reach patient and goes to voicemail. Left generic message since message didn't identify patient. Allergies As of Date: 12/20/2024 Noted Allergy Reaction SEASONAL ALLERGIES 03/21/2013 14 - Other: See Comments Comments: Gets itchy/burning eyes. 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 - EPINEPHrine (EPIPEN 2-HALI) 0.3 mg/0.3 mL auto-injector Inject 0.3 mL intramuscularly as needed. For allergic reaction.Seek emergent medical care immediately after use.Disp:1 2-pakw/hardware trainer - L-Norgest and E Estradiol-E Estrad 0.15 mg-30 mcg (84)/10 mcg (7) Take 1 tablet by mouth once daily. - montelukast (SINGULAIR) 10 mg tablet Take 1 tablet by mouth daily at bedtime. - sertraline (ZOLOFT) 100 mg tablet Take 1 tablet by mouth once daily. - buPROPion SR (WELLBUTRIN SR) 150 mg 12 hr tablet Take 1 tablet by mouth two times a day. - hydrOXYzine HCl (ATARAX) 25 mg tablet Take 1-2 tablets by mouth every 6 hours as needed. For itching. - levocetirizine (XYZAL) 5 mg tablet Take 1 tablet by mouth once daily. - TURMERIC ORAL Take by mouth. - scopolamine (TRANSDERM-SCOP) patch 1.5 mg/72 hr (delivers 1 mg over 3 days) Apply 1 Patch as directed every 72 hours. Apply patch to skin behind ear 4hrs prior to travel. - Diltiazem 2% Ointment (rectal fissures) Apply to rectum 2-3 times daily and as needed. (TAKE TO [facility] TO FILL) - meclizine 25 mg Tab Take 1 tablet by mouth every 6 hours as needed. 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 Menses: cycles every 84 days and 4 days of flow. 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 LMP: 09/23/2024 (Exact Date), Having periods Age at Menarche: 10 Age at First : Age at Menopause: Technology Applications Teacher History Comments: Sexual Activity: Yes; Male Contraception: Pill Menstrual Tracking History Flowsheet Row Office Visit from 10/19/2024 in OB/Gynecology Period Cycle (Days) 60 Period Duration (Days) 5 Menstrual Flow Moderate PAST MEDICAL HISTORY Diagnosis Date Allergy History of HPV infection Hypothyroid Thyroid nodule Urticaria PAST SURGICAL HISTORY Procedure Laterality Date BLEPHAROPLASTY EXTENSIVE Right 11/05/2015 ML PAST SURGICAL HISTORY OF pre-cancerousskin lesions removed from breast TOE SURGERY HX Bilateral TOOTH EXTRACTION wisdom teeth FAMILY HISTORY Problem Relation Age of Onset Cancer Mother Thyroid Cancer Thyroid Mother Thyroid Father Breast Cancer Paternal Grandmother Aneurysm Paternal Grandfather SOCIAL HISTORY Social History Tobacco Use Smoking status: Never Smokeless tobacco: Never Vaping Use Vaping status: Never Used Substance Use Topics Alcohol use: Yes Alcohol/week: 1.0 standard drink of alcohol Types: 1 Cans of Beer (12oz) per week Comment: socially Drug use: No REVIEW OF SYSTEMS Abdomen: No abdominal pain, nausea, vomiting, diarrhea, or constipation. No bloating, early satiety, indigestion, or increased flatulence. Bladder: No dysuria, gross hematuria, urinary frequency, urinary urgency, or incontinence. Breast: No breast lumps, nipple d/c, overlying skin changes, redness or skin retraction. Allergies and current medication updated:Yes SENSITIVE EXAM: The sensitive examination was discussed with the Patient or Patient's Authorized [place] Physical Therapist Assistant. As applicable, any other physician, advance practice provider, medical student, or other health professional student that will be observing or involved in the sensitive examination for educational or training purposes was discussed with the Patient or Authorized [place] Physical Therapist Assistant. The Patient or Authorized [place] Physical Therapist Assistant has agreed to proceed with the sensitive examination. (Sensitive examination includes inspection and/or palpation of the breasts, pelvis, prostate and anorectal regions). EXAM: BP 122/64 Ht 5' 6.063 (1.68m) Wt 195 lb 9.6 oz (88.7kg) LMP 09/23/2024 BMI 31.51 kg/(m2). GENERAL: pleasant, female in no apparent distress HEENT: Normocephalic, atraumatic, mucus membranes moist, and no lesions DERMATOLOGY: Normal, without lesions, non-icteric, and non-hirsute BREAST: soft, non-tender, symmetric, no dominant mass, normal nipple-areolar complex, no lymphadenopathy, and no nipple discharge CHEST: Normal inspiratory effort ABDOMEN: soft, non-tender, and no masses PELVIC: external genitalia normal, normal Bartholin's glands, urethra, [place]'s glands, no vulvar lesions, no cervical lesions, good vaginal support, physiologic discharge present, normal appearing perineal body and perianal region BIMANUAL: uterus normal size, shape and consistency, no adnexal masses, and non-tender NEURO: alert and oriented x3,exam grossly non-focal EXTREMITIES: normal ASSESSMENT/PLAN: 1) Health maintenance: Pap done with HPV. Mammogram ordered. Nutrition, exercise and routine health maintenance exams reviewed. Calcium/Vitamin D supplementation information provided. Colon cancer screening: start at age 45 2) Contraception: combined hormonal contraceptives. Contraceptive options reviewed and information provided. 3) STD screening: Declined STD check. 4) Follow up one year or sooner as needed Marbella Jaffe APRN.CNP Allergies As of Date: 10/19/2024 Noted Allergy Reaction SEASONAL ALLERGIES 03/21/2013 14 - Other: See Comments Comments: Gets itchy/burning eyes. Date Reviewed: 10/19/2024 Reviewed by: Marbella Jaffe APRN.CNP - Fully Assessed Reason for Visit: Well Woman [1463] Primary Visit Diagnosis:Encounter for gynecological examination (general) (routine) without abnormal findings [Z01.419] Other Visit Diagnoses:Encounter for screening mammogra (more content not included)... Normal [facility] HIGH RISK HUMAN PAPILLOMA JUAN (HPV), PCR FOR DETECTION AND GENOTYPINGon 10-19-2024 HPV 16 Ag Ql (Unsp spec) Not detected Normal Not detected [facility] Comment on above: Order Comment: Speci men Type: BLOOD SPECIMEN Ordering Facility: [facility] Address: [address] [place] [address] Performed By: #### 5 5454-3 #### [facility] CLIA [id number] [address] [place] [address] [id number] [place] [address] [place] HPV 18 Ag Ql (Unsp spec) Not detected Normal Not detected [facility] Comment on above: Order Comment: Speci men Type: BLOOD SPECIMEN Ordering Facility: [facility] Address: [address] [place] [address] Performed By: #### 5 5454-3 #### [facility] CLIA [id number] [address] [place] [address] [place] HPV 31+33+35+39+45+51+52+5 6+58+59+66+68 DNA BAM+probe Ql (Cvx) Not detected Normal Not detected [facility] Comment on above: Order Comment: Speci men Type: BLOOD SPECIMEN Ordering Facility: [facility] Address: [address] [place] [address] Result Comment: High Risk HPV Other Type includes HPV types 31, 33, 35, 39, 45, 51, 52, 56, 58, 59, 66 and 68. Performed By: #### 5 5454-3 #### [facility] CLIA [id number] [address] [place] [address] [place] PAP TESTon 10-19-2024 ADEQUACY Normal [facility] Comment on above: Order Comment: Speci men Type: FLUID SPECIMEN Ordering Facility: [facility] Address: [address] [place] [address] Result Comment: Sati sfactory for interpretation. No endocervical component Performed By: #### L [id number] #### [facility] CLIA [id number] [address] [place] [address] [place] [facility] CLIA [id number] [address] [place] [address] [place] CASE REPORT Normal [facility] Comment on above: Order Comment: Speci men Type: FLUID SPECIMEN Ordering Facility: [facility] Address: [address] [place] [address] Result Comment: Gyne cologic Cytology Report Case: [id number] Authorizing Provider: Marbella Jaffe APRN.PATTERN DRUM MAKER Collected: 10/19/2024 01:59 PM Ordering Location: OB/Gynecology Received: 10/19/2024 04:04 PM First Screen: Gmitro, [place], [place], ASCP Rescreen: Ana Groves, CT, ASCP Specimen: Pap Test, ThinPrep, Cervix Performed By: #### L [id number] #### [facility] CLIA [id number] [address] [place] [address] [place] [facility] CLIA [id number] [address] [place] [address] [place] CLINICAL HISTORY, CYTOLOGY, INSURANCE BUSINESS ANALYST Routine Exam Normal [facility] Comment on above: Order Comment: Speci men Type: FLUID SPECIMEN Ordering Facility: [facility] Address: [address] [place] [address] Performed By: #### L [id number] #### [facility] CLIA [id number] [address] [place] [address] [place] [facility] CLIA [id number] [address] [place] [address] [place] FINAL PERFORMING LAB Normal [facility] [place] Comment on above: Order Comment: Speci men Type: FLUID SPECIMEN Ordering Facility: [facility] Address: [address] [place] [address] Result Comment: Tech nical component, sheet metal worker maintenance screening performed at: [facility], [address] [place] [address] CLIA: [id number] Diagnostic interpretation performed at: [facility], [address] [place], [place] [id number] CLIA# [id number] Collateral Specialist: Arnulfo Beth MD Performed By: #### L [id number] #### [facility] CLIA [id number] [address] [place] [address] [place] [facility] CLIA [id number] [address] [place] [address] [place] INTERPRETATION, CYTOLOGY, INSURANCE BUSINESS ANALYST Normal [facility] Comment on above: Order Comment: Speci men Type: FLUID SPECIMEN Ordering Facility: [facility] Address: [address] [place] [address] Result Comment: Nega tive for intraepithelial lesion or malignancy. at 1446 EDT Performed By: #### L [id number] #### [facility] CLIA [id number] [address] [place] [address] LABORATORY CLIA [id number] [address] [place] [address] 09/23/2024 Normal [facility] Comment on above: Order Comment: Speci men Type: FLUID SPECIMEN Ordering Facility: [facility] Address: [address] [place] [address] Performed By: #### L [id number] #### [facility] CLIA [id number] [address] [place] [address] LABORATORY CLIA [id number] [address] [place] [address] PAP DISCLAIMER COMMENT The Pap Smear is a screening test for cervical cancer. False negative results occur with all screening tests, emphasizing the need for rescreening at recommended intervals, and clinical correlation. Normal [facility] Comment on above: Order Comment: Speci men Type: FLUID SPECIMEN Ordering Facility: [facility] Address: [address] [place] [address] Performed By: #### L [id number] #### [facility] CLIA [id number] [address] [place] [address] LABORATORY CLIA [id number] [address] [place] [address] [place] PAP VP CLINICAL RESEARCH COMMENT This specimen has been analyzed by the ThinPrep Imaging System, an automated imaging and review system, which assists the laboratory in evaluating cells on ThinPrep Pap tests. Following automated imaging, selected [place] from every slide are reviewed by a sheet metal worker maintenance. Normal [facility] Comment on above: Order Comment: Speci men Type: FLUID SPECIMEN Ordering Facility: [facility] Address: [address] [place] [address] Performed By: #### L [id number] #### [facility] CLIA [id number] [address] [place] [facility] CLIA [id number] [address] [place] [id number] [place] US THYROID/PARATHYROIDon US THYROID/PARATHYROID * * *Final Report * * * DATE OF EXAM: May 01 2024 11:48AM [facility] 1048 - US THYROID/PARATHYROID / PROCEDURE REASON: Thyroid nodule, uninodular * * * * Physician Interpretation * * * * EXAMINATION: THYROID ULTRASOUND CLINICAL HISTORY: Thyroid nodule, uninodular TECHNIQUE: Sonography and Doppler imaging of the thyroid was performed. Images were obtained and stored in a permanent archive and interpreted remotely. MQ: [id number] COMPARISON: Ultrasound dated 04/28/2023 RESULT: Right Lobe: 1.2 x 1.2 x 3.5 cm; heterogeneous echogenicity, expected vascular flow. Left Lobe: 1.1 x 1.2 x 4.1 cm; heterogeneous echogenicity, expected vascular flow. Isthmus: 0.3 cm The most suspicious thyroid nodule(s) (up to four) as below: NODULE 1: Location: Left isthmus Size: 0.3 x 1.1 x 1.5 cm, previously 0.4 x 1.1 x 1.5 cm Characteristics: Composition: Solid or almost completely solid, 2 points Echogenicity: Isoechoic, 1 point Shape: [id number]-[id number], 0 points Margin: Smooth, 0 points Echogenic foci (add points for all that apply): None, 0 points Internal vascularity: Mild present Interval growth: None TI-RADS Category: TR3 ACR Recommendation: TI-RADS 3 nodule. Follow-up imaging at 1, 3 and 5 years is recommended. IMPRESSION: 1. Diffusely heterogeneous thyroid echotexture. 2. Thyroid nodule(s) is/are present. Surveillance imaging is recommended for one or more nodules as detailed in the synoptic report. TI-RADS Category: TR3 ACR Recommendation: TI-RADS 3 nodule. Follow-up imaging at 1, 3 and 5 years is recommended. ACR recommendations are strictly based on the size and imaging appearance at the time of the exam and do not consider stability or previous biopsy results. Open Claims Representative: JOANNE Transcribe Date/Time: May 02 2024 8:35A Dictated by : ALENA MIX MD This examination was interpreted and the report reviewed and electronically signed by: ALENA MIX MD on May 02 2024 8:46AM EST [id number] Normal [facility] DBT Breast - bilateral mariannee aba 04-05-2024 IMPRESSION: There is no mammographic evidence of malignancy. A routine follow-up mammogram in 1 year is recommended. BI-RADS Category 2: Benign RISK: Based on the Tyrer-Cuzick (TC) risk assessment model, this patient has a 14.5% lifetime risk of developing breast cancer, meaning they are at average risk for developing breast cancer. However, this is only an estimate based on available history provided on the patient's questionnaire. We encourage all patients to talk with their providers about these results, further recommendations for managing breast health, and appropriate supplemental screening options if the patient has dense breast tissue. Interpreting Radiologist: Siena Stoner M.D. Electronically signed on: 04/05/2024 Open Claims Representative: NEEMA Transcribe Date/Time: Apr 05 2024 11:15A Dictated by: SIENA STONER MD This examination was interpreted and the report reviewed and electronically signed by: SIENA STONER MD on Apr 05 2024 4:01PM [facility] DIVISION OF RADIOLOGY * * *Final Report* * * DATE OF EXAM: Apr 05 2024 11:45AM [facility] 0582 - [place] SCREENING W VIDHI / PROCEDURE REASON: Encounter for screening mammogram for breast cancer * * * * Physician Interpretation * * * * RESULT: [address] [address] HISTORY: Patient is 39 years old and is seen for screening and is asymptomatic in both breasts. Patient states no personal history of breast cancer. Patient states no personal history of other cancers. COMPARISON STUDIES: No prior imaging studies are available for comparison. MAMMOGRAM TECHNIQUE: The study was acquired using full field digital technology and interpreted from soft copy. Digital Breast Tomosynthesis (DBT) images were obtained and used to assist in the interpretation of this examination. Computer-aided detection was utilized by the radiologist in the interpretation of this examination. MAMMOGRAM FINDINGS: The breasts are heterogeneously dense, which may obscure small masses. Bilateral nipple piercings. No suspicious masses, calcifications or other abnormalities are seen in either breast. DIVISION OF RADIOLOGY Provider, [facility] [place] - 04/05/2024 * * *Final Report* * * DATE OF EXAM: Apr 05 2024 11:45AM [facility] 0582 - [place] SCREENING W VIDHI / PROCEDURE REASON: Encounter for screening mammogram for breast cancer * * * * Physician Interpretation * * * * RESULT: [place] [address] [place] [id number] HISTORY: Patient is 39 years old and is seen for screening and is asymptomatic in both breasts. Patient states no personal history of breast cancer. Patient states no personal history of other cancers. COMPARISON STUDIES: No prior imaging studies are available for comparison. MAMMOGRAM TECHNIQUE: The study was acquired using full field digital technology and interpreted from soft copy. Digital Breast Tomosynthesis (DBT) images were obtained and used to assist in the interpretation of this examination. Computer-aided detection was utilized by the radiologist in the interpretation of this examination. MAMMOGRAM FINDINGS: The breasts are heterogeneously dense, which may obscure small masses. Bilateral nipple piercings. No suspicious masses, calcifications or other abnormalities are seen in either breast. IMPRESSION IMPRESSION: There is no mammographic evidence of malignancy. A routine follow-up mammogram in 1 year is recommended. BI-RADS Category 2: Benign RISK: Based on the Tyrer-Cuzick (TC) risk assessment model, this patient has a 14.5% lifetime risk of developing breast cancer, meaning they are at average risk for developing breast cancer. However, this is only an estimate based on available history provided on the patient's questionnaire. We encourage all patients to talk with their providers about these results, further recommendations for managing breast health, and appropriate supplemental screening options if the patient has dense breast tissue. Interpreting Radiologist: Siena Stoner M.D. Electronically signed on: 04/05/2024 Open Claims Representative: NEEMA Transcribe Date/Time: Apr 05 2024 11:15A Dictated by: SIENA STONER MD This examination was interpreted and the report reviewed and electronically signed by: SIENA STONER MD on Apr 05 2024 4:01PM EST [facility] Radiology Study observation (narrative) [facility] DBT Breast - bilateral scree ningOrdered By: Ccf Provider on 04-05-2024 [facility] GLORY SCREENING W TOMOon 04-05 GLORY SCREENING W VIDHI * * *Final Report* * * DATE OF EXAM: Apr 05 2024 11:45AM WRW [id number] - GLORY SCREENING W VIDHI / PROCEDURE REASON: Encounter for screening mammogram for breast cancer * * * * Physician Interpretation * * * * RESULT: [facility] [address] [place] [address] HISTORY: Patient is 39 years old and is seen for screening and is asymptomatic in both breasts. Patient states no personal history of breast cancer. Patient states no personal history of other cancers. COMPARISON STUDIES: No prior imaging studies are available for comparison. MAMMOGRAM TECHNIQUE: The study was acquired using full field digital technology and interpreted from soft copy. Digital Breast Tomosynthesis (DBT) images were obtained and used to assist in the interpretation of this examination. Computer-aided detection was utilized by the radiologist in the interpretation of this examination. MAMMOGRAM FINDINGS: The breasts are heterogeneously dense, which may obscure small masses. Bilateral nipple piercings. No suspicious masses, calcifications or other abnormalities are seen in either breast. IMPRESSION: There is no mammographic evidence of malignancy. A routine follow-up mammogram in 1 year is recommended. BI-RADS Category 2: Benign RISK: Based on the Tyrer-Cuzick (TC) risk assessment model, this patient has a 14.5% lifetime risk of developing breast cancer, meaning they are at average risk for developing breast cancer. However, this is only an estimate based on available history provided on the patient's questionnaire. We encourage all patients to talk with their providers about these results, further recommendations for managing breast health, and appropriate supplemental screening options if the patient has dense breast tissue. Interpreting Radiologist: Siena tSoner M.D. Electronically signed on: 04/05/2024 Open Claims Representative: NEEMA Transcribe Date/Time: Apr 05 2024 11:15A Dictated by: SIENA STONER MD This examination was interpreted and the report reviewed and electronically signed by: SIENA STONER MD on Apr 05 2024 4:01PM EST [id number] CN Normal [facility] CNOVon 03-20-2024 CNOV Office Visit (FAMPWS) MARBELLA PAYAN ([id number]) 1985 F Date Time Provider Department 03/20/24 11:40 AM NICHOLE CORBIN [facility] During your visit today, we recorded the following information about you: Pulse Blood pressure Weight 85/minute 112/70 87.5 kg Nichole Corbin, C++ PROFESSOR.PATTERN DRUM MAKER 03/20/2024 12:32 PM Signed This is a 39 year old female who presents today with: No chief complaint on file. HISTORY OF PRESENT ILLNESS: Marbella Payan is a 39 year old female. No chief complaint on file. Anxiety is improved. Using Buspar prn. Wanting help with weight loss. 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 Thyroid WNL. Exercises Stimulants not a good d/t anxiety PAST MEDICAL HISTORY: PAST MEDICAL HISTORY Diagnosis Date Allergy History of HPV infection Hypothyroid Thyroid nodule Urticaria PAST SURGICAL HISTORY Procedure Laterality Date BLEPHAROPLASTY EXTENSIVE Right 11/05/2015 ML PAST SURGICAL HISTORY OF pre-cancerousskin lesions removed from breast TOE SURGERY HX Bilateral TOOTH EXTRACTION wisdom teeth ALLERGIES Seasonal Allergies MEDICATIONS Current Outpatient Medications Medication Sig levothyroxine 100 mcg cap take 1 capsule by mouth once daily BEFORE BREAKFAST busPIRone (BUSPAR) 5 mg tablet Take 1 tablet by mouth three times a day as needed. montelukast (SINGULAIR) 10 mg tablet Take 1 tablet by mouth daily at bedtime. BIOTIN ORAL Take by mouth. L-Norgest and E Estradiol-E Estrad 0.15 mg-30 mcg (84)/10 mcg (7) Take 1 tablet by mouth once daily. triamcinolone acetonide (NASACORT ALLERGY) 55 mcg nasal inhaler Use 2 Sprays in the nose as needed. EPINEPHrine (EPIPEN 2-HALI) 0.3 mg/0.3 mL auto-injector Inject 0.3 mL intramuscularly as needed. For allergic reaction.Seek emergent medical care immediately after use.Disp:1 2-pakw/hardware trainer hydrOXYzine HCl (ATARAX) 25 mg tablet Take 1-2 tablets by mouth every 6 hours as needed. For itching. levocetirizine (XYZAL) 5 mg tablet Take 1 tablet by mouth once daily. TURMERIC ORAL Take by mouth. diphenhydrAMINE (BENADRYL) 25 mg capsule Take 25 mg by mouth every 6 hours as needed. cholecalciferol, vitamin D3, (VITAMIN D3 ORAL) Take 5,000 Units by mouth once daily. Diltiazem 2% Ointment (rectal fissures) Apply to rectum 2-3 times daily and as needed. (TAKE TO BRIAN RX TO FILL) meclizine 25 mg Tab Take 1 tablet by mouth every 6 hours as needed. FOR DIZZINESS sertraline (ZOLOFT) 100 mg tablet Take 1 tablet by mouth once daily. scopolamine (TRANSDERM-SCOP) patch 1.5 mg/72 hr (delivers 1 mg over 3 days) Apply 1 Patch as directed every 72 hours. Apply patch to skin behind ear 4hrs prior to travel. No current facility-administere d medications for this visit. FAMILY HISTORY Problem Relation Age of Onset Cancer Mother Thyroid Cancer Thyroid Mother Thyroid Father Breast Cancer Paternal Grandmother Aneurysm Paternal Grandfather Social History Tobacco Use Smoking status: Never Smokeless tobacco: Never Vaping Use Vaping status: Never Used Substance Use Topics Alcohol use: Yes Alcohol/week: 1.0 standard drink of alcohol Types: 1 Cans of Beer (12oz) per week Comment: socially Drug use: No EXAM: BP 112/70 Pulse 85 Wt 87.5 kg (193 lb) LMP 09/06/2023 (Approximate) SpO2 98% BMI 31.15 kg/m? PHYSICAL EXAM: Physical Exam Vitals reviewed. Constitutional: Appearance: Normal appearance. HENT: Head: Normocephalic. Cardiovascular: Rate and Rhythm: Normal rate and regular rhythm. Pulses: Normal pulses. Heart sounds: Normal heart sounds. Pulmonary: Effort: Pulmonary effort is normal. Breath sounds: Normal breath sounds. Skin: General: Skin is warm and dry. Neurological: Mental Status: She is alert. Psychiatric: Mood and Affect: Mood normal. Behavior: Behavior normal. LABS: reviewed labs ASSESSMENT/PLAN: 1. Weight loss - ICD9: 783.21, ICD10: R63.4 (primary diagnosis) Would like assistance - BUPROPION HCL SR 150 MG TABLET,12 HR SUSTAINED-RELEASE 2. 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 Patient's questions answered appropriately. Medications and potential side effects were discussed and patient voices understanding. Return to the office as scheduled or as needed for worsening/no improvement. VINNIE Lim Jacqueline A, APRN.CNP 03/20/2024 12:32 PM Signed 1) add Wellbutrin 150 mg 2 x day 2) Continue other medications 3) Follow up in 6 months Allergies As of Date: 03/20/2024 Noted Allergy Reaction SEASONAL ALLERGIES 03/21/2013 14 - Other: See Comments Comments: Gets itchy/burning eyes. Date Reviewed: 03/20/2024 Reviewed by: Nichole Corbin APRN.CNP - Fully Assessed Primary Visit (more content not included)... Normal [facility] CBC panel Auto (Bld)on 03-09 Erythrocyte distribution width (RBC) [Ratio] 12.7 % Normal 11.5-15.0 [facility] Comment on above: Order Comment: Moisés hdz Type: BLOOD SPECIMEN Ordering Facility: [facility] Address: [address] [id number] Performed By: #### 5 8410-2 #### [facility] CLIA [id number] [address] [place] [address] [place] Hematocrit (Bld) [Volume fraction] 39.2 % Normal 36.0-46.0 [facility] Comment on above: Order Comment: Moisés hdz Type: BLOOD SPECIMEN Ordering Facility: [facility] Address: [address] [place] [address] Performed By: #### 5 8410-2 #### [facility] CLIA [id number] [address] [place] [address] [place] Hemoglobin (Bld) [Mass/Vol] 13.4 g/dL Normal 11.5-15.5 [facility] Comment on above: Order Comment: Speci men Type: BLOOD SPECIMEN Ordering Facility: [facility] Address: [address] [place] [address] Performed By: #### 5 8410-2 #### [facility] CLIA [id number] [address] [place] [address] [place] MCH (RBC) [Entitic mass] 29.5 pg Normal 26.0-34.0 [facility] Comment on above: Order Comment: Speci men Type: BLOOD SPECIMEN Ordering Facility: [facility] Address: [address] [place] [address] Performed By: #### 5 8410-2 #### [facility] [id number] [address] [place] [address] [place] MCHC (RBC) [Mass/Vol] 34.2 g/dL Normal 30.5-36.0 [facility] Comment on above: Order Comment: Speci men Type: BLOOD SPECIMEN Ordering Facility: [facility] Address: [address] [place] [address] Performed By: #### 5 8410-2 #### [facility] [id number] [address] [place] [address] [place] MCV (RBC) [Entitic vol] 86.3 fL Normal 80.0-100.0 [facility] Comment on above: Order Comment: Speci men Type: BLOOD SPECIMEN Ordering Facility: [facility] Address: [address] [place] [address] Performed By: #### 5 8410-2 #### [facility] [id number] [address] [place] [address] [place] Nucleated RBC (Bld) [#/Vol] 10*3/uL Normal <0.01 [facility] Comment on above: Order Comment: Speci men Type: BLOOD SPECIMEN Ordering Facility: [facility] Address: [address] [place] [address] Performed By: #### 5 8410-2 #### [facility] CLIA [id number] [address] [place] [address] [place] Platelet mean volume (Bld) [Entitic vol] 9.4 fL Normal 9.0-12.7 [facility] Comment on above: Order Comment: Speci men Type: BLOOD SPECIMEN Ordering Facility: [facility] Address: [address] [place] [address] Performed By: #### 5 8410-2 #### [facility] [place] CLIA [id number] [address] [place] [address] [place] Platelets (Bld) [#/Vol] 239 10*3/uL Normal 150-400 [facility] Comment on above: Order Comment: Speci men Type: BLOOD SPECIMEN Ordering Facility: [facility] Address: [address] [place] [address] Performed By: #### 5 8410-2 #### [facility] [place] CLIA [id number] [address] [place] [address] [place] RBC (Bld) [#/Vol] 4.54 10*6/uL Normal 3.90-5.20 [facility] Comment on above: Order Comment: Speci men Type: BLOOD SPECIMEN Ordering Facility: [facility] Address: [address] [place] [address] Performed By: #### 5 8410-2 #### [facility] [place] CLIA [id number] [address] [place] [address] [place] WBC (Bld) [#/Vol] 8.27 10*3/uL Normal 3.70-11.00 [facility] Comment on above: Order Comment: Speci men Type: BLOOD SPECIMEN Ordering Facility: [facility] Address: [address] [place] [address] Performed By: #### 5 8410-2 #### [facility] CLIA [id number] [address] [place] [address] [place] Comprehensive metabolic 2000 panelon 03-09-2024 Albumin [Mass/Vol] 4.4 g/dL Normal 3.9-4.9 [facility] Comment on above: Order Comment: Speci men Type: BLOOD SPECIMEN Ordering Facility: [facility] Address: [address] [place] [address] Performed By: #### 5 5454-3 #### [facility] CLIA [id number] [address] [place] [address] [place] ALP [Catalytic activity/Vol] 27 U/L Low 34-123 [facility] Comment on above: Order Comment: Speci men Type: BLOOD SPECIMEN Ordering Facility: [facility] Address: [address] [place] [address] Performed By: #### 5 5454-3 #### [facility] CLIA [id number] [address] [place] [address] [place] ALT [Catalytic activity/Vol] 19 U/L Normal 7-38 [facility] Comment on above: Order Comment: Speci men Type: BLOOD SPECIMEN Ordering Facility: [facility] Address: [address] [place] [address] Performed By: #### 5 5454-3 #### [facility] CLIA [id number] [address] [place] [address] [place] Anion gap [Moles/Vol] 13 mmol/L Normal 8-15 [facility] Comment on above: Order Comment: Speci men Type: BLOOD SPECIMEN Ordering Facility: [facility] Address: [address] [place] [address] Performed By: #### 5 5454-3 #### [facility] CLIA [id number] [address] [place] [address] [place] AST [Catalytic activity/Vol] 20 U/L Normal 13-35 [facility] Comment on above: Order Comment: Speci men Type: BLOOD SPECIMEN Ordering Facility: [facility] Address: [address] [place] [address] Performed By: #### 5 5454-3 #### [facility] CLIA [id number] [address] [place] [address] [place] Bilirubin [Mass/Vol] 0.3 mg/dL Normal 0.2-1.3 [facility] [place] Comment on above: Order Comment: Speci men Type: BLOOD SPECIMEN Ordering Facility: [facility] Address: [address] [place] [address] Performed By: #### 5 5454-3 #### [facility] CLIA [id number] [address] [place] [address] [place] Calcium [Mass/Vol] 9.4 mg/dL Normal 8.5-10.2 [facility] Comment on above: Order Comment: Speci men Type: BLOOD SPECIMEN Ordering Facility: [facility] Address: [address] [place] [address] Performed By: #### 5 5454-3 #### [facility] CLIA [id number] [address] [place] [address] [place] Chloride [Moles/Vol] 102 mmol/L Normal 98-107 [facility] Comment on above: Order Comment: Speci men Type: BLOOD SPECIMEN Ordering Facility: [facility] Address: [address] [place] [address] Performed By: #### 5 5454-3 #### [facility] CLIA [id number] [address] [place] [address] [place] CO2 [Moles/Vol] 22 mmol/L Normal 22-30 [facility] Comment on above: Order Comment: Moisés men Type: BLOOD SPECIMEN Ordering Facility: [facility] Address: [address] [place] [address] Performed By: #### 5 5454-3 #### [facility] CLIA [id number] [address] [place] [address] [place] Creatinine [Mass/Vol] 0.74 mg/dL Normal 0.58-0.96 [facility] Comment on above: Order Comment: Speci men Type: BLOOD SPECIMEN Ordering Facility: [facility] Address: [address] [place] [address] Performed By: #### 5 5454-3 #### [facility] CLIA [id number] [address] [place] [address] [place] Creatinine and Glomerular filtration rate.predicted panel (S/P/Bld) 104 mL/min/1.73m??? Normal >=60 [facility] Comment on above: Order Comment: Moisés men Type: BLOOD SPECIMEN Ordering Facility: [facility] Address: [address] [place] [address] Result Comment: Joleen mated Glomerular Filtration Rate (eGFR) is calculated using the 2020 CKD-EPI creatinine equation. This equation utilizes serum creatinine, sex, and age as parameters. The creatinine assay has traceable calibration to isotope dilution-mass spectrometry. Refer to KDIGO guidelines for clinical interpretation. In patients with unstable renal function, e.g. those with acute kidney injury, the eGFR may not accurately reflect actual GFR. Performed By: #### 5 5454-3 #### [facility] CLIA [id number] [address] [place] [address] [place] Glucose [Mass/Vol] 92 mg/dL Normal 74-99 [facility] Comment on above: Order Comment: Sheldoni men Type: BLOOD SPECIMEN Ordering Facility: [facility] Address: [address] [place] [address] Result Comment: The [place] Diabetes Association (ADA) provides guidance for cutoff values for fasting glucose and random glucose. The ADA defines fasting as no caloric intake for at least 8 hours. Fasting plasma glucose results between 100 to 125 mg/dL indicate increased risk for diabetes (prediabetes). Fasting plasma glucose results greater than or equal to 126 mg/dL meet the criteria for diagnosis of diabetes. In the absence of unequivocal hyperglycemia, results should be confirmed by repeat testing. In a patient with classic symptoms of hyperglycemia or hyperglycemic crisis, random plasma glucose results greater than or equal to 200 mg/dL meet the criteria for diagnosis of diabetes. Reference: Standards of Medical Care in Diabetes 2016, [place] Diabetes Association. Diabetes Care. 2016.39(Suppl 1). Performed By: #### 5 5454-3 #### [facility] CLIA [id number] [address] [place] [address] [place] Potassium [Moles/Vol] 3.9 mmol/L Normal 3.7-5.1 [facility] Comment on above: Order Comment: Speci men Type: BLOOD SPECIMEN Ordering Facility: [facility] Address: [address] [place] [address] Performed By: #### 5 5454-3 #### [facility] CLIA [id number] [address] [place] [address] [place] Protein [Mass/Vol] 7.3 g/dL Normal 6.3-8.0 [facility] Comment on above: Order Comment: Sheldoni men Type: BLOOD SPECIMEN Ordering Facility: [facility] Address: [address] [place] [address] Performed By: #### 5 5454-3 #### [facility] CLIA [id number] [address] [place] [address] [place] Sodium [Moles/Vol] 137 mmol/L Normal 136-144 [facility] Comment on above: Order Comment: Speci men Type: BLOOD SPECIMEN Ordering Facility: [facility] Address: [address] [place] [address] Performed By: #### 5 5454-3 #### [facility] CLIA [id number] [address] [place] [address] [place] Urea nitrogen [Mass/Vol] 13 mg/dL Normal 7-21 [facility] Comment on above: Order Comment: Moisés hdz Type: BLOOD SPECIMEN Ordering Facility: [facility] Address: [address] [place] [address] Performed By: #### 5 5454-3 #### [facility] CLIA [id number] [address] [place] [address] [place] HbA1c (Bld)on 03-09-2024 Average glucose Estimated from glycated hemoglobin (Bld) [Mass/Vol] 108 mg/dL Normal [facility] Comment on above: Order Comment: Moisés hdz Type: BLOOD SPECIMEN Ordering Facility: [facility] Address: [address] [place] [address] Result Comment: eAG: (Estimated average glucose) is a calculated value from HgbA1c and is human resources representative of the average blood glucose level in the last 2-3 month period. Performed By: #### 5 5454-3 #### [facility] CLIA [id number] [address] [place] [address] [place] [facility] HbA1c (Bld) [Mass fraction] 5.4 % Normal 4.3-5.6 [facility] Comment on above: Order Comment: Moisés hdz Type: BLOOD SPECIMEN Ordering Facility: [facility] Address: [address] [place] [address] Result Comment: [place] Diabetes Association guidelines indicate that patients with HgbA1c in the range 5.7-6.4% are at increased risk for development of diabetes, and intervention by lifestyle modification may be beneficial. HgbA1c greater or equal to 6.5% is considered diagnostic of diabetes. Performed By: #### 5 5454-3 #### [facility] CLIA [id number] [address] [place] [address] [place] LIPID PANEL, NONFASTINGon Cholesterol [Mass/Vol] 151 mg/dL Normal <200 [facility] Comment on above: Order Comment: Moisés hdz Type: BLOOD SPECIMEN Ordering Facility: [facility] Address: [address] [place] [address] Result Comment: <200 mg/dL, Desirable 200-239 mg/dL, Borderline high >239 mg/dL, High Performed By: #### 5 5454-3 #### [facility] CLIA [id number] [address] [place] [address] [place] HDL CHOLESTEROL, NF 60 mg/dL Normal >39 [facility] Comment on above: Order Comment: Moisés hdz Type: BLOOD SPECIMEN Ordering Facility: [facility] Address: [address] [place] [address] Result Comment: 40-5 9 mg/dL, Acceptable >59 mg/dL, High: Negative risk factor for coronary heart disease <40 mg/dL, Low: Positive risk factor for coronary heart disease Performed By: #### 5 5454-3 #### [facility] CLIA [id number] [address] [place] [address] [place] LDL CHOLESTEROL, NF 67 mg/dL Normal <100 [facility] Comment on above: Order Comment: Moisés hdz Type: BLOOD SPECIMEN Ordering Facility: [facility] Address: [address] [place] [address] Result Comment: <100 mg/dL, Optimal 100-129 mg/dL, Near optimal/above optimal 130-159 mg/dL, Borderline high 160-189 mg/dL, High >189 mg/dL, Very high Secondary prevention optimal LDL Cholesterol levels are recommended to be < 70 mg/dL Performed By: #### 5 5454-3 #### [facility] CLIA [id number] [address] [place] [address] [place] LDL/HDL RATIO, NF 1.12 mg/dL Normal <2.54 [facility] Comment on above: Order Comment: Moisés hdz Type: BLOOD SPECIMEN Ordering Facility: [facility] Address: [address] [place] [address] Result Comment: Refe rence: 1. National Cholesterol Education Program ATP III Guideline At-A-Glance Quick Desk Reference: National Heart, Lung, and Blood [place]. National Institutes of Health. 2001: NIH Publication No. 01-3305. 2. An International Atherosclerosis Society position paper: global recommendations for the management of dyslipidemia: executive summary, Atherosclerosis. 2014: 232(2):410-413. Performed By: #### 5 5454-3 #### [facility] CLIA [id number] [address] [place] [address] [place] NON HDL CHOL, NF 91 mg/dL Normal <130 [facility] Comment on above: Order Comment: Specalhaji men Type: BLOOD SPECIMEN Ordering Facility: [facility] Address: [address] [place] [address] Result Comment: <130 mg/dL, Optimal 130-159 mg/dL, Near optimal/above optimal 160-189 mg/dL, Borderline high 190-219 mg/dL, High >219 mg/dL, Very high Secondary prevention optimal non HDL Cholesterol levels are recommended to be <100 mg/dL Performed By: #### 5 5454-3 #### [facility] CLIA [id number] [address] [place] [address] [place] T CHOL/HDL RATIO NF 2.52 mg/dL Normal <5.10 [facility] Comment on above: Order Comment: Moisés hdz Type: BLOOD SPECIMEN Ordering Facility: [facility] Address: [address] [place] [address] Performed By: #### 5 5454-3 #### [facility] CLIA [id number] [address] [place] [address] [place] TRIGLYCERIDES, NF 121 mg/dL Normal <150 [facility] Comment on above: Order Comment: Moisés hdz Type: BLOOD SPECIMEN Ordering Facility: [facility] Address: [address] [place] [address] Result Comment: <150 mg/dL, Normal 150-199 mg/dL, Borderline high 200-499 mg/dL, High >499 mg/dL, Very high Performed By: #### 5 5454-3 #### [facility] CLIA [id number] [address] [place] [address] [place] VLDL CHOLESTEROL, NF 24 mg/dL Normal <30 [facility] Comment on above: Order Comment: Speci men Type: BLOOD SPECIMEN Ordering Facility: [facility] Address: [address] [place] [address] Performed By: #### 5 5454-3 #### [facility] CLIA [id number] [address] [place] [address] [place] Magnesium SerPl-mCncon 03-09 Magnesium [Mass/Vol] 1.8 mg/dL Normal 1.7-2.3 [facility] Comment on above: Order Comment: Speci andreina Type: BLOOD SPECIMEN Ordering Facility: [facility] Address: [address] [place] [address] Performed By: #### 5 5454-3 #### [facility] CLIA [id number] [address] [place] [address] [place] TSH SerPl-aCncon 03-09-2024 TSH Qn 1.840 m[IU]/L Normal 0.270-4.200 [facility] Comment on above: Order Comment: Moisés hdz Type: BLOOD SPECIMEN Ordering Facility: [facility] Address: [address] [place] [address] Result Comment: If t he patient is , TSH reference range varies by gestational period: First Trimester (weeks 9-12): 0.180-2.990 mIU/L Second Trimester: 0.110-3.980 mIU/L Third Trimester: 0.480-4.710 mIU/L Marcio Box et al. A Practical Approach for the Verifications and Determination of Site- and Trimester-Specific Reference Intervals for Thyroid Function tests in . Thyroid, 2019:29:3:412-420. Yonny Villasenor et al. 2017 Guidelines of the [place] [employer] for the Diagnosis and Management of Thyroid Disease during and the . Thyroid, 2017:27:3:315-389. Performed By: #### 5 5454-3 #### [facility] CLIA [id number] [address] [place] [address] [place] UA DIP, URINE (POC)on 2023 BILIRUBIN UA (POCT) Moderate Abnormal Negative [facility] CLARITY UA (POCT) Clear [facility] COLOR UA (POCT) Yellow [facility] GLUCOSE UA (POCT) 100 mg/dL Abnormal Negative mg/dL [facility] Hemoglobin Ql (U) Moderate Abnormal Negative [facility] KETONE UA (POCT) 15 mg/dL Abnormal Negative mg/dL [facility] LEUKOCYTES UA (POCT) Large Abnormal Negative [facility] NITRITE UA (POCT) Positive Abnormal Negative [facility] PH UA (POCT) 5.0 4.5 - 8.0 [facility] Protein Ql (U) >=300 Abnormal Negative mg/dL [facility] SPECIFIC GRAVITY UA (POCT) 1.020 1.005 - 1.030 [facility] UROBILINOGEN UA (POCT) 4.0 E.U./dL Abnormal Shanna l E.U./dL [facility] LABORATORYOrdered By: SYSTEM SYSTEM on 07-17-2023 Basophil, Absolute 0.0 103/mcL Normal 0.0 - 0.2 10^3/mcL AO Workflow SS Basophils/100 WBC (Bld) 0.2 % Normal 0.0 - 2.5 % AO Workflow SS Calcium [Mass/Vol] 8.4 mg/dL Normal 8.4 - 10. 2 mg/dL AO ADM SS Chloride [Moles/Vol] 101 mmol/L Normal 98 - 10 7 mmol/L AO ADM SS CO2 [Moles/Vol] 28 mmol/L Normal 22 - 29 mmol/L AO ADM SS Creatinine [Mass/Vol] 0.78 mg/dL Normal 0.55 - 1.02 mg/dL AO ADM SS Electrolyte Balance 7.0 mEq/L Normal 4.0 - 15 .0 mEq/L AO ADM SS Eosinophil, Absolute 0.0 103/mcL Normal 0.0 - 0 .4 10^3/mcL AO Workflow SS Eosinophils/100 WBC (Bld) 0.2 % Normal 0.0 - 7.0 % AO Workflow SS Erythrocyte distribution width (RBC) [Ratio] 13.6 % Normal 11.5 - 14.5 % AO Workflow SS GFR/1.73 sq M.predicted among blacks MDRD (S/P/Bld) [Vol rate/Area] 99 ml/min/1.73sqm Invalid Interpretation Code AO Chemistry S Comment on above: Interpretive Data: GFR Population mean for , Non- Americans Ages 20-29 = 116 mL/min/1.73 sq.m. Ages 30-39 = 107 mL/min/1.73 sq.m. Ages 40-49 = 99 mL/min/1.73 sq.m. Ages 50-59 = 93 mL/min/1.73 sq.m. Ages 60-69 = 85 mL/min/1.73 sq.m. Ages 70+ = 75 mL/min/1.73 sq.m. Chronic Kidney Disease: Less than 60 mL/min/1.73 square meters End Stage Renal Disease: Less than 15 mL/min/1.73 square meters GFR/1.73 sq M.predicted among non-blacks MDRD (S/P/Bld) [Vol rate/Area] 82 ml/min/1.73sqm Invalid Interpretation Code AO Chemistry S Comment on above: Interpretive Data: GFR Population mean for , Non- Americans Ages 20-29 = 116 mL/min/1.73 sq.m. Ages 30-39 = 107 mL/min/1.73 sq.m. Ages 40-49 = 99 mL/min/1.73 sq.m. Ages 50-59 = 93 mL/min/1.73 sq.m. Ages 60-69 = 85 mL/min/1.73 sq.m. Ages 70+ = 75 mL/min/1.73 sq.m. Chronic Kidney Disease: Less than 60 mL/min/1.73 square meters End Stage Renal Disease: Less than 15 mL/min/1.73 square meters Glucose [Mass/Vol] 122 mg/dL High 70 - 105 mg/dL AO ADM SS Hematocrit (Bld) [Volume fraction] 33.9 % Low 37.0 - 47.0 % AO Workflow SS Hemoglobin (Bld) [Mass/Vol] 11.7 G/dL Low 12.0 - 16.0 G/dL AO Workflow SS Lymphocyte, Absolute 1.0 103/mcL Normal 0.8 - 3 .9 10^3/mcL AO Workflow SS Lymphocytes/100 WBC (Bld) 7.2 % Low 10.0 - 50.0 % AO Workflow SS MCH (RBC) [Entitic mass] 29.9 pg Normal 27.0 - 31.2 pg AO Workflow SS MCHC 34.6 G/dL Normal 33.0 - 37.0 G/dL AO Workflow SS MCV (RBC) [Entitic vol] 86.6 fL Normal 80.0 - 94.0 fL AO Workflow SS Monocyte distribution width Auto (Bld) [Entitic vol] 25.16 1 High 0.00 - 20.00 AO Workflow SS Comment on above: Result Comment: For adults in ED, MDW>20.0 may be associated with a higher risk of sepsis during the first 12hrs of hospital admission Monocyte, Absolute 0.7 103/mcL Normal 0.2 - 1.0 10^3/mcL AO Workflow SS Monocytes/100 WBC (Bld) 4.9 % Normal 1.7 - 13.0 % AO Workflow SS Neutrophil, Absolute 11.9 103/mcL High 2.9 - 6 .2 10^3/mcL AO Workflow SS Neutrophils/100 WBC (Bld) 87.5 % High 37.0 - 80.0 % AO Workflow SS Platelet mean volume (Bld) [Entitic vol] 6.6 fL Low 7.4 - 10.4 fL AO Workflow SS Platelets (Bld) [#/Vol] 184 103/mcL Normal 130 - 400 10^3/mcL AO Workflow SS Potassium [Moles/Vol] 3.7 mmol/L Normal 3.5 - 5.1 mmol/L AO ADM SS RBC (Bld) [#/Vol] 3.92 106/mcL Low 4.20 - 5.4 0 10^6/mcL AO Workflow SS Sodium [Moles/Vol] 136 mmol/L Normal 136 - 145 mmol/L AO ADM SS Urea nitrogen [Mass/Vol] 10 mg/dL Normal 7 - 18 mg/dL AO ADM SS Urea nitrogen/Creatinine [Mass ratio] 13 ratio Normal 7 - 27 ratio AO ADM SS WBC (Bld) [#/Vol] 13.6 103/mcL High 4.6 - 10.8 10^3/mcL AO Workflow SS US THYROID/PARATHYROIDon [facility] - Chemistry and C hemistry - challengeOrdered By: Dr. Woods on 09-08-2022 Free T4 [Mass/Vol] 1.15 ng/dL 0.76-1.46 [facility] No Panel InformationOrdered By: Dr. Woods on 09-08-2022 Follicle Stimulating Hormone 5.1 mIU/mL [facility] Comment on above: NORMAL REFERENCE RAN GES FEMALE FOLLICULAR 2.3 - 12.6 mIU/mL MID-CYCLE PEAK 5.2 - 17.5 mIU/mL LUTEAL 1.7 - 12.9 mIU/mL POST-MENOPAUSAL ON MHT 5.9 - 72.8 mIU/mL NOT ON MHT 12.7 - 132.2 mlU/mL MALE 0.7 - 10.8 mIU/mL Luteinizing Hormone 2.8 mIU/mL [facility] Comment on above: NORMAL REFERENCE RAN GES FEMALE FOLLICULAR 1.9 - 26.2 mIU/mL MID-CYCLE PEAK 22.8 - 76.1 mIU/mL LUTEAL 0.6 - 16.6 mIU/mL POST-MENOPAUSAL ON MHT 1.1 - 52.4 mIU/mL NOT ON MHT 8.6 - 61.8 mIU/mL MALE 1.2 - 10.6 mIU/mL Thyroid Stimulating Hormone (TSH) 1.57 uIU/mL 0.358-3.74 [facility] Serum or plasma estradiol (E 2) measurement (mass/volume)Ordered By: Dr. Woods on 09-08-2022 E2 [Mass/Vol] pg/mL [facility] Comment on above: NORMAL REFERENCE RAN GES FEMALE FOLLICULAR 21.4 - 164.8 pg/mL MID-CYCLE PEAK 49.9 - 367.2 pg/mL LUTEAL 40.2 - 259.0 pg/mL POST-MENOPAUSAL ON MHT <11.0 - 462.1 pg/mL NOT ON MHT <11.0 - 58.3 pg/mL MALE <11.0 - 52.5 pg/mL NOTE:[employer] HAS CONFIRMED THE DRUG FULVETRANT (FASLODEX) MAY CAUSE FALSELY ELEVATED ESTRADIOL RESULTS WHEN USING THIS TEST METHOD. IF PATIENT IS TAKING FULVESTRANT AN ALTERNATIVE METHOD SHOULD BE USED TO DETERMINE ESTRADIOL CONCENTRATION. Serum or plasma prolactin me asurement (mass/volume)Ordered By: Dr. Woods on 09-08-2022 Prolactin [Mass/Vol] 20.4 ng/mL [facility] Comment on above: NORMAL REFERENCE RAN GES FEMALE NON- 2.2 - 30.3 ng/mL 8.1 - 347.6 ng/mL POST-MENOPAUSAL 0.7 - 31.5 ng/mL MALE 2.5 - 17.4 ng/mL Serum or plasma testosterone free measurement (mass/volume)Ordered By: Dr. Woods on 09-08-2022 Testosterone Free [Mass/Vol] <0.2 pg/mL 0.0-4.2 [facility] Comment on above: Performed at: [address] [id number] Director: Latesha Duong MD, Phone: [phone] Cervical or vagninal specime n microscopic examination by cytology stain (reported asOrdered By: Dr. Woods on 06-19-2022 Cytology report Cyto stain Doc (Cvx/Vag) Comment . [facility] Comment on above: The Pap smear is a s creening test designed to aid in thedetection of premalignant and malignant conditions of theuterine cervix. It is not a diagnostic procedure andshould not be used as the sole means of detecting cervicalcancer. Both false-positive and false-negative reports dooccur. Detection in cervical specim en of any of human papilloma virus (HPV) 16, 18, 31, 33,Ordered By: Dr. Woods on 06-19-2022 HPV 16+18+31+33+35+39+45+5 1+52+56+58+59+66+68 DNA Probe+sig amp Ql (Cvx) Negative Negative [facility] Comment on above: This nucleic acid am plification test detects fourteen high- risk HPV types (16,18,31,33,35,39,45,51,52,56,58,59,66,68)without differentiation. Laboratory - CytologyOrdered By: Dr. Woods on 06-19-2022 Vocational Trainer Cyto stain Nom (Cvx/Vag) [ID] Comment . [facility] Comment on above: Kyle Woods , Seamless Tube Roller (ASCP) Laboratory - Miscellaneous t estsOrdered By: Dr. Woods on 06-19-2022 Service comment (Unsp spec) [Interp] Comment . [facility] Comment on above: This liquid based Th inPrep(R) pap test was screened withthe use of an image guided system. Service comment (Unsp spec) [Interp] . . [facility] Liquid-based cerv Pap + CT/G C by BAM w reflex to high-risk HPV for ASCUSOrdered By: Dr. Woods on 06-19-2022 Cytology report Cyto stain.thin prep Doc (Cvx/Vag) Comment . [facility] Comment on above: Criteria not met, HP V Genotype not performed.Performed at: [facility] - [facility] [address] [id number] Director: Radha Graf MD, Phone: [phone] at: =G - [facility] [address] [id number] Director: Radha Graf MD, Phone: [phone] No Panel InformationOrdered By: Dr. Woods on 06-19-2022 Pathology report final diagnosis Narrative Comment . [facility] Comment on above: NEGATIVE FOR INTRAEP ITHELIAL LESION OR MALIGNANCY. Basophil percentageOrdered B y: HEALTH ASSESSMENT on 03-26-2022 Cholesterol [Mass/Vol] 168 mg/dL <200 [facility] Comment on above: <200 mg/dL Desirable 200-240 mg/dL Borderline >240 mg/dL High Risk Glucose [Mass/Vol] 103 mg/dL 74-106 [facility] Comment on above: Fasting Glucose resu lt from 100 to 125 mg/dL suggests IMPAIRED HOMEOSTASIS per A.D.A. criteria. Triglyceride [Mass/Vol] 157 mg/dL <199 [facility] Comment on above: The drugs N-Acetylcy steine and Metamizole may falsely depress this assay.Serum Triglycerides Reference Interval Normal <150 mg/dL Borderline high 150 - 199 mg/dL High 200 - 499 mg/dL Very High > or = 500 mg/dL Serum or plasma cholesterol in HDL measurement (mass/volume)Ordered By: HEALTH ASSESSMENT on 03-26-2022 Cholesterol in HDL [Mass/Vol] 76 mg/dL >40 [facility] Comment on above: The drugs N-Acetylcy steine and Metamizole may falsely depress this assay. Reference Range HDL <40 mg/dL Low HDL Cholesterol HDL >or= 60 mg/dL High HDL Cholesterol Serum or plasma cholesterol in VLDL measurement (mass/volume)Ordered By: HEALTH ASSESSMENT on 03-26-2022 Cholesterol in VLDL [Mass/Vol] 31 mg/dL 5-40 [facility] Serum or plasma low density lipoprotein (LDL) cholesterol measurement (mass/volume)Ordered By: HEALTH ASSESSMENT on 03-26-2022 Cholesterol in LDL [Mass/Vol] 61 mg/dL 0-130 [facility] CNPNon 02-22-2022 CNPN Telephone ([facility]) MARBELLA PAYAN ([id number]) 1985 F Date Time Provider Department 02/22/22 TREASURE ESCALONA During your visit today, we recorded the following information about you: Treasure Escalona MD 02/22/2022 5:41 PM Signed Please notify patient she requires appointment and ultrasound results will be discussed then. Last appointment was January 2021. Thank you Silke Cruz RN 02/23/2022 2:53 PM Signed Called patient, left voicemail regarding need for office appointment. Will have PSS reach out and schedule. [employer] message sent as well. Allergies As of Date: 02/22/2022 Noted Allergy Reaction SEASONAL ALLERGIES 03/21/2013 14 - Other: See Comments Comments: Gets itchy/burning eyes. Date Reviewed: 01/27/2022 Reviewed by: Alley Hay Ma - Fully Assessed Reason for Visit: Appointment [186] Prescriptions as of 02/23/2022 - sertraline (ZOLOFT) 50 mg tablet Take 1 tablet by mouth once daily. - LORazepam (ATIVAN) 0.5 mg Take 1 tablet by mouth once daily as needed (anxiety) for up to 30 days. - XOLAIR 150 mg/mL syringe INJECT 2 SYRINGES UNDER THE SKIN EVERY 4 WEEKS - docosahexaenoic acid/epa (FISH OIL ORAL) Take by mouth once daily. - levothyroxine 100 mcg cap Take 1 capsule by mouth daily before breakfast. - levothyroxine 100 mcg cap take 1 capsule by mouth once daily BEFORE BREAKFAST - montelukast (SINGULAIR) 10 mg tablet take 1 tablet by mouth once daily at bedtime - hydrOXYzine HCl (ATARAX) 25 mg tablet Take 1-2 tablets by mouth every 6 hours as needed. For itching. - EPINEPHrine (EPIPEN 2-HALI) 0.3 mg/0.3 mL auto-injector Inject 0.3 mL intramuscularly as needed. For allergic reaction.Seek emergent medical care immediately after use.Disp:1 2-pakw/hardware trainer - levocetirizine (XYZAL) 5 mg tablet Take 5 mg by mouth twice daily. - diphenhydrAMINE (BENADRYL) 25 mg capsule Take 25 mg by mouth every 6 hours as needed. - cholecalciferol, vitamin D3, (VITAMIN D3 ORAL) Take 5,000 Units by mouth once daily. - Diltiazem 2% Ointment (rectal fissures) Apply to rectum 2-3 times daily and as needed. (TAKE TO [facility] TO FILL) - L-Norgest and E Estradiol-E Estrad 0.15 mg-30 mcg (84)/10 mcg (7) Take 1 tablet by mouth once daily. - meclizine 25 mg Tab Take 1 tablet by mouth every 6 hours as needed. 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] 10/08/2015 11/13/2015 History of ptosis repair [Z98.890] 11/13/2015 Adjustment reaction with anxiety and depression* 0 Chronic idiopathic urticaria [L50.1] 08/15/2020 Encounter Status:Closed by TREASURE ESCALONA on 02/22/22 [facility] THYROID/PARATHYROIDon [facility] 12-08-2021 CNPN Telephone ([facility]) SCHUYLERMARBELLA Isauro ([id number]) 1985 F Date Time Provider Department 12/08/21 TREASURE ESCALONA During your visit today, we recorded the following information about you: Allergies As of Date: 12/08/2021 Noted Allergy Reaction SEASONAL ALLERGIES 03/21/2013 14 - Other: See Comments Comments: Gets itchy/burning eyes. Date Reviewed: 04/10/2021 Reviewed by: Abhijit Garrett MD - Fully Assessed Reason for Visit: Results [95] Primary Visit Diagnosis:Thyroid nodule [E04.1] Order(s):US THYROID/PARATHYROID [[id number]] Order #: [id number] FUTURE Prescriptions as of 12/08/2021 - levothyroxine 100 mcg cap Take 1 capsule by mouth daily before breakfast. - levothyroxine 100 mcg cap take 1 capsule by mouth once daily BEFORE BREAKFAST - montelukast (SINGULAIR) 10 mg tablet take 1 tablet by mouth once daily at bedtime - doxepin capsule 25 mg Take 1-2 capsules by mouth daily at bedtime. - cholecalciferol (VITAMIN D3) 1,000 unit tab tablet Vitamin D VITAMIN D TABS daily CHOLECALCIFEROL TABS [id number] Marli Olivera RN 07-20-2019 [facility] ([id number]) - resveratrol-querceti n 100-100 mg tab Take 2 tablets by mouth once daily. - omalizumab (XOLAIR) 150 mg/mL Inject 2 mL subcutaneously every 4 weeks. - hydrOXYzine HCl (ATARAX) 25 mg tablet Take 1-2 tablets by mouth every 6 hours as needed. For itching. - EPINEPHrine (EPIPEN 2-HALI) 0.3 mg/0.3 mL auto-injector Inject 0.3 mL intramuscularly as needed. For allergic reaction.Seek emergent medical care immediately after use.Disp:1 2-pakw/hardware trainer - levocetirizine (XYZAL) 5 mg tablet Take 5 mg by mouth once daily. 10 mg at bedtime - famotidine (PEPCID) 10 mg tablet Take 30 mg by mouth once daily. - predniSONE (DELTASONE) 10 mg tablet Take 4 tablets daily for 5 days, 3 tabs daily for 1 day, 2 tabs daily for 1 day and 1 tab daily for one day - diphenhydrAMINE (BENADRYL) 25 mg capsule Take 25 mg by mouth every 6 hours as needed. - TURMERIC ORAL Take by mouth once daily. Turmeric and phuc - Lactobacillus acidophilus (PROBIOTIC ORAL) Take by mouth once daily. - cholecalciferol, vitamin D3, (VITAMIN D3 ORAL) Take 5,000 Units by mouth once daily. - COMPOUNDED PRESCRIPTION Apply to rectum 2-3 times daily and as needed. - Diltiazem 2% Ointment (rectal fissures) Apply to rectum 2-3 times daily and as needed. (TAKE TO [facility] TO FILL) - L-Norgest and E Estradiol-E Estrad (CAMRESE) 0.15 mg-30 mcg (84)/10 mcg (7) 3MPk Take 1 tablet by mouth once daily. - meclizine 25 mg Tab Take 1 tablet by mouth every 6 hours as needed. 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] 10/08/2015 11/13/2015 History of ptosis repair [Z98.890] 11/13/2015 Adjustment reaction with anxiety and depression* 0 Chronic idiopathic urticaria [L50.1] 08/15/2020 Encounter Status:Closed by TREASURE ESCALONA on 12/08/21 [facility] Telephone ([facility]) MARBELLA PAYAN ([id number]) 1985 F Date Time Provider Department 12/08/21 KASSY ALVARADO During your visit today, we recorded the following information about you: Allergies As of Date: 12/08/2021 Noted Allergy Reaction SEASONAL ALLERGIES 03/21/2013 14 - Other: See Comments Comments: Gets itchy/burning eyes. Date Reviewed: 04/10/2021 Reviewed by: Abhijit Garrett MD - Fully Assessed Reason for Visit: Returning Patient's Call [408] Orders [681] Primary Visit Diagnosis:Thyroid nodule [E04.1] Prescriptions as of 12/08/2021 - levothyroxine 100 mcg cap Take 1 capsule by mouth daily before breakfast. - levothyroxine 100 mcg cap take 1 capsule by mouth once daily BEFORE BREAKFAST - montelukast (SINGULAIR) 10 mg tablet take 1 tablet by mouth once daily at bedtime - doxepin capsule 25 mg Take 1-2 capsules by mouth daily at bedtime. - cholecalciferol (VITAMIN D3) 1,000 unit tab tablet Vitamin D VITAMIN D TABS daily CHOLECALCIFEROL TABS [id number] Marli Olivera RN 07-20-2019 [facility] ([id number]) - resveratrol-querceti n 100-100 mg tab Take 2 tablets by mouth once daily. - omalizumab (XOLAIR) 150 mg/mL Inject 2 mL subcutaneously every 4 weeks. - hydrOXYzine HCl (ATARAX) 25 mg tablet Take 1-2 tablets by mouth every 6 hours as needed. For itching. - EPINEPHrine (EPIPEN 2-HALI) 0.3 mg/0.3 mL auto-injector Inject 0.3 mL intramuscularly as needed. For allergic reaction.Seek emergent medical care immediately after use.Disp:1 2-pakw/hardware trainer - levocetirizine (XYZAL) 5 mg tablet Take 5 mg by mouth once daily. 10 mg at bedtime - famotidine (PEPCID) 10 mg tablet Take 30 mg by mouth once daily. - predniSONE (DELTASONE) 10 mg tablet Take 4 tablets daily for 5 days, 3 tabs daily for 1 day, 2 tabs daily for 1 day and 1 tab daily for one day - diphenhydrAMINE (BENADRYL) 25 mg capsule Take 25 mg by mouth every 6 hours as needed. - TURMERIC ORAL Take by mouth once daily. Turmeric and phuc - Lactobacillus acidophilus (PROBIOTIC ORAL) Take by mouth once daily. - cholecalciferol, vitamin D3, (VITAMIN D3 ORAL) Take 5,000 Units by mouth once daily. - COMPOUNDED PRESCRIPTION Apply to rectum 2-3 times daily and as needed. - Diltiazem 2% Ointment (rectal fissures) Apply to rectum 2-3 times daily and as needed. (TAKE TO [facility] TO FILL) - L-Norgest and E Estradiol-E Estrad (CAMRESE) 0.15 mg-30 mcg (84)/10 mcg (7) 3MPk Take 1 tablet by mouth once daily. - meclizine 25 mg Tab Take 1 tablet by mouth every 6 hours as needed. 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] 10/08/2015 11/13/2015 History of ptosis repair [Z98.890] 11/13/2015 Adjustment reaction with anxiety and depression* 0 Chronic idiopathic urticaria [L50.1] 08/15/2020 Encounter Status:Closed by KASSY ALVARADO on 12/08/21 [facility] BRIEF OP NOTon 02-05-2021 BRIEF OP NOT HNO ID: [id number] Author: Prince Rogers MD Service: Radiology Author Type: Physician Type: Brief Op Note Filed: 02/05/2021 12:46 PM Note Text: BRIEF OPERATIVE NOTE PATIENT NAME: Marbella Payan LOG ID: [id number] Surgery Date: 02/05/2021 Surgeon(s) and Clip Coater(s): Surgeon(s) and Role: * Prince Rogers MD - Primary Procedures and Anesthesia: Procedure(s) and Anesthesia Type: * BIOPSY THYROID - Local Findings: nodule Estimated Blood Loss: none Condition: good Specimens: 3 aspirates w 25 g needle Pre-procedure Diagnosis: Thyroid nodule Postop Diagnosis: (Same) SIGNATURE: Prince Rogers MD Start time 12:20 End time 12:27 Normal [facility] CYTOLOGYon 02-05-2021 CYTOLOGY Specimen originated from [facility] Specimen #: [id number] Submitting Physician: PRINCE ROGERS SPECIMEN SUBMITTED A: THYROID, LEFT LOBE, FINE NEEDLE ASPIRATE FINAL DIAGNOSIS A. THYROID, LEFT LOBE, FINE NEEDLE ASPIRATE (THINPREP AND CELL BLOCK) Benign. Lymphocytic thyroiditis. Shannan Vigil M.D. (Electronic Signature) CLINICAL DATA Left lobe/left isthmus nodule GROSS DESCRIPTION 30cc clear, colorless Cytolyt with particles STAINS A: THYROID, LEFT LOBE, FINE NEEDLE ASPIRATE THIN PREP Non-Technology Applications Teacher Date of Report: 02/07/2021 Date of Procedure: 02/05/2021 Date of Receipt: 02/05/2021 Submitted by: PRINCE ROGERS Additional Physician(s): TREASURE ESCALONA MD Location: [facility] Diagnostic interpretation performed at [facility], [address] [place] [address]. CLIA Number: [id number] [facility] US FNA THYROID WO CORE BXon 02-05-2021 US FNA THYROID WO CORE BX * * *Final Report* * * DATE OF EXAM: Feb 05 2021 12:40PM [id number] - US FNA THYROID WO CORE BX / PROCEDURE REASON: left isthmus nodule * * * * Physician Interpretation * * * * Ultrasound-guided thyroid nodule biopsy History: Left thyroid nodule Pre-procedure Sign-in: Safety Checklist Performed: Yes. The team confirmed the correct patient, correct site, site marking, correct procedure, and correct position. Sign-out: Communication performed: Yes The nodule in the LEFT thyroid lobe/isthmus was localized with ultrasound. A site for biopsy was chosen. Under sterile conditions with 1% lidocaine as local anesthetic 3 passes were performed with 25g needles utilizing real-time ultrasound guidance. An image of the site of the aspiration biopsy and an image demonstrating the biopsy needle in the mass were obtained and are stored in the radiology picture archive system and are available for review. Specimen was sent for cytologic analysis. IMPRESSION Successful tissue sampling LEFT thyroid lobe/isthmus nodule If the cytologic interpretation indicates benign tissue would suggest continued sonographic follow-up in view of known false negative incidence with aspiration biopsy Open Claims Representative: JOANNE Transcribe Date/Time: Feb 05 2021 12:50P Dictated by : PRINCE ROGERS MD This examination was interpreted and the report reviewed and electronically signed by: PRINCE ROGERS MD on Feb 05 2021 12:51PM EST [id number] [facility] Clinical Summary: HMSPatient IDon 07-21-[address] [facility] Work Phone: Clinical Lists Update: Prelo ad Extendedon 07-20-2019 Tobacco smoking status NHIS Tobacco smoking status NHIS [facility] Work Phone: Clinical Summary: Data Submi tted by Patient in [place] 07-20-2019 #DEP CHLDRN Yes [facility] Work Phone: 3+ETOHDAILY 1 drink per day [facility] Work Phone: ASTHEHSZHOUS 3 floors [facility] Work Phone: Beta HCG ( test) Ql (U) 2 or more times per year [facility] Work Phone: BROTHERS A/D My brother(s)' health history is unknown [facility] Work Phone: DEATHCAU DAD cancer [facility] Work Phone: DEP ALG LIST I don't have any drug allergies.,I don't have any food allergies.,Animals,D ust mites,Stinging insects,Mold,Plant pollens (Hay Fever) [facility] Work Phone: DEP DAD PMH Cancer [facility] Work Phone: DEP DRUG USE No [facility] Work Phone: 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 [facility] Work Phone: DEP ETOH USE Yes [facility] Work Phone: DEP EXERCISE Yes [facility] Work Phone: DEP EXERTYP walking [facility] Work Phone: DEP MED LIST Eva-D 180 mg;240 mg Tab Er, 1 times per day,Venlafaxine 75 mg Cap Er, 1 times per day [facility] Work Phone: DEP MOM PMH Arthritis, Cancer, Hypothyroidism [facility] Work Phone: DEP PMH Anxiety, Hypothyroidism [facility] Work Phone: DEP SH CSMO never smoker [facility]very [facility] Work Phone: DEP SH [facility] Work Phone: 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 [facility] Work Phone: DEPEXER FREQ 3 days per week [facility] Work Phone: ETOHPERFRM beer, wine, liquor Silvia [facility] Work Phone: FATHER A/D [facility] Work Phone: MEDICCOMMNTS Fish oil, vitamin D, probiotic, apple cider vinegar tabs, vitamin c tabs, Ashlyna BC [facility] Work Phone: MOTHER A/D Alive [facility] Work Phone: RLATNSHPINFR Self [facility] Work Phone: SWHOUTYPE house [facility] Work Phone: WEBSURGCOM eyelid repair/was droopy ingrown toenail surgery on both big toes wisdom teeth surgery [facility] Work Phone: Vital Signs Date Time Vital Sign Value Performing Clinician Facility 10-19-2024 13:24-0400 Body height 167.8 cm Marbella Pelham C++ PROFESSOR.PATTERN DRUM MAKER Work Phone: [facility] 10-19-2024 13:24-0400 Body mass index (BMI) [Ratio] 31.51 kg/m2 Marbella Sylvester C++ PROFESSOR.PATTERN DRUM MAKER Work Phone: [facility] 10-19-2024 13:24-0400 Body weight 88.72 kg Marbella Pelham C++ PROFESSOR.PATTERN DRUM MAKER Work Phone: [facility] 10-19-2024 13:24-0400 Diastolic blood pressure 64 mm[Hg] Marbella Pelham C++ PROFESSOR.PATTERN DRUM MAKER Work Phone: [facility] 10-19-2024 13:24-0400 Systolic blood pressure 122 mm[Hg] Marbella Sylvester C++ PROFESSOR.PATTERN DRUM MAKER Work Phone: [facility] 03-20-2024 12:13-0400 Body mass index (BMI) [Ratio] 31.15 kg/m2 Nichole Corbin C++ PROFESSOR.PATTERN DRUM MAKER Work Phone: [facility] 03-20-2024 12:13-0400 Body weight 87.54 kg Nichole Suppan C++ PROFESSOR.PATTERN DRUM MAKER Work Phone: [facility] 03-20-2024 12:13-0400 Diastolic blood pressure 70 mm[Hg] Nichole Suppan C++ PROFESSOR.PATTERN DRUM MAKER Work Phone: [facility] 03-20-2024 12:13-0400 Heart rate 85 /min Nichole Suppan C++ PROFESSOR.PATTERN DRUM MAKER Work Phone: [facility] 03-20-2024 12:13-0400 SaO2% (BldA) [Mass fraction] 98 % Nichole Suppan C++ PROFESSOR.PATTERN DRUM MAKER Work Phone: [facility] 03-20-2024 12:13-0400 Systolic blood pressure 112 mm[Hg] Nichole Suppan C++ PROFESSOR.PATTERN DRUM MAKER Work Phone: [facility] 12-23-2023 12:55-0400 Body mass index (BMI) [Ratio] 30.18 kg/m2 Nichole Suppan C++ PROFESSOR.PATTERN DRUM MAKER Work Phone: [facility] 12-23-2023 12:55-0400 Body weight 84.82 kg Nichole Suppan C++ PROFESSOR.PATTERN DRUM MAKER Work Phone: [facility] 12-23-2023 12:55-0400 Diastolic blood pressure 78 mm[Hg] Nichole Suppan C++ PROFESSOR.PATTERN DRUM MAKER Work Phone: [facility] 12-23-2023 12:55-0400 Heart rate 85 /min Nichole Suppan C++ PROFESSOR.PATTERN DRUM MAKER Work Phone: [facility] 12-23-2023 12:55-0400 SaO2% (BldA) [Mass fraction] 98 % Nichole Suppan C++ PROFESSOR.PATTERN DRUM MAKER Work Phone: [facility] 12-23-2023 12:55-0400 Systolic blood pressure 120 mm[Hg] Nichole Suppan C++ PROFESSOR.PATTERN DRUM MAKER Work Phone: [facility] 09-27-2023 07:28-0400 Body height 167.6 cm Marbella Sylvester C++ PROFESSOR.PATTERN DRUM MAKER Work Phone: [facility] 09-27-2023 07:28-0400 Body weight 88 kg Marbella Pelham C++ PROFESSOR.PATTERN DRUM MAKER Work Phone: [facility] 09-27-2023 07:28-0400 Diastolic blood pressure 84 mm[Hg] Marbella Sylvester C++ PROFESSOR.PATTERN DRUM MAKER Work Phone: [facility] 09-27-2023 07:28-0400 Systolic blood pressure 122 mm[Hg] Marbella Pelham C++ PROFESSOR.PATTERN DRUM MAKER Work Phone: [facility] 09-22-2023 07:38-0400 Body temperature 97.2 [degF] Krislyn Aberegg PA Work Phone: [facility] 09-22-2023 07:38-0400 Body weight 87.5 kg Krislyn Aberegg PA Work Phone: [facility] 09-22-2023 07:38-0400 Diastolic blood pressure 62 mm[Hg] Krislyn Aberegg PA Work Phone: [facility] 09-22-2023 07:38-0400 Heart rate 101 /min Krislyn Aberegg PA Work Phone: [facility] 09-22-2023 07:38-0400 Respiratory rate 18 /min Krislyn Aberegg PA Work Phone: [facility] 09-22-2023 07:38-0400 SaO2% (BldA) [Mass fraction] 98 % Krislyn Aberegg PA Work Phone: [facility] 09-22-2023 07:38-0400 Systolic blood pressure 110 mm[Hg] Krislyn Aberegg PA Work Phone: [facility] 07-17-2023 14:57-0500 Body temperature 99.86 [degF] DR BARBER CAPELLAN MD [facility] 07-17-2023 14:57-0500 Diastolic Blood Pressure Non-Invasive 72 mm[Hg] DR BARBER CAPELLAN MD [facility] 07-17-2023 14:57-0500 Heart rate 110 /min DR BARBER CAPELLAN MD [facility] Comment on above: Result Comment: dr. fazal capellan notified of temp and HR. 07-17-2023 14:57-0500 Respiratory rate 21 /min DR BARBER CAPELLAN MD [facility] 07-17-2023 14:57-0500 Systolic Blood Pressure Non-Invasive 107 mm[Hg] DR BARBER CAPELLAN MD [facility] 07-17-2023 12:41-0500 Diastolic Blood Pressure Non-Invasive 75 mm[Hg] DR BARBER CAPELLAN MD [facility] 07-17-2023 12:41-0500 Heart rate 96 /min DR BARBER CAPELLAN MD [facility] 07-17-2023 12:41-0500 Reason For Taking VItal Signs DR BARBER CAPELLAN MD [facility] 07-17-2023 12:41-0500 Respiratory rate 20 /min DR BARBER CAPELLAN MD [facility] 07-17-2023 12:41-0500 Systolic Blood Pressure Non-Invasive 110 mm[Hg] DR BARBER CAPELLAN MD [facility] 07-17-2023 11:39-0500 Body temperature 98.78 [degF] DR BARBER CAPELLAN MD [facility] 07-17-2023 11:39-0500 Body weight 88.[address] BARBER CAPELLAN MD [facility] 07-17-2023 11:39-0500 Diastolic Blood Pressure Non-Invasive 83 mm[Hg] DR BARBER CAPELLAN MD [facility] 07-17-2023 11:39-0500 Heart rate 116 /min DR BARBER CAPELLAN MD [facility] 07-17-2023 11:39-0500 Respiratory rate 22 /min DR BARBER CAPELLAN MD [facility] 07-17-2023 11:39-0500 Systolic Blood Pressure Non-Invasive 135 mm[Hg] DR BARBER CAPELLAN MD [facility] 12-17-2022 17:06-0400 Body weight 83.46 kg NA Chen PA-C Work Phone: [facility] 12-17-2022 17:06-0400 Diastolic blood pressure 60 mm[Hg] NA Chen PA-C Work Phone: [facility] 12-17-2022 17:06-0400 Heart rate 80 /min NA Chen PA-C Work Phone: [facility] 12-17-2022 17:06-0400 Respiratory rate 16 /min NA Chen PA-C Work Phone: [facility] 12-17-2022 17:06-0400 SaO2% (BldA) [Mass fraction] 96 % NA Chen PA-C Work Phone: [facility] 12-17-2022 17:06-0400 Systolic blood pressure 110 mm[Hg] NA Chen PA-C Work Phone: [facility] NEGATED: Highlighted [id number] 12:04-0500 BMI (Body Mass Index) 25.64 kg/m2 Kristal Bryant LPN [facility] Work Phone: NEGATED: Highlighted [id number] 12:04-0500 Body weight 76.2 kg Kristal Bryant LPN [facility] Work Phone: NEGATED: Highlighted [id number] 12:04-0500 Body weight 76 kg Kristal Byrant LPN [facility] Work Phone: NEGATED: Highlighted [id number] 12:04-0500 BP Diastolic 74 mm[Hg] Kristal Bryant LPN [facility] Work Phone: NEGATED: Highlighted [id number] 12:04-0500 BP Systolic 118 mm[Hg] Kristal Bryant LPN [facility] Work Phone: NEGATED: Highlighted [id number] 12:04-0500 Heart rate 1+ Kristal Bryant PLASTER MACHINE TENDER [facility] Work Phone: NEGATED: Highlighted [id number] 12:04-0500 Heart rate Kristal Bryant LPN [facility] Work Phone: NEGATED: Highlighted [id number] 12:04-0500 Height 172.72 cm Kristal Bryant LPN [facility] Work Phone: NEGATED: Highlighted [id number] 12:04-0500 Height 173 cm Kristal Bryant LPN [facility] Work Phone: NEGATED: Highlighted [id number] 12:04-0500 Pulse (Heart Rate) 91 /min Kristal Bryant LPN [facility] Work Phone: Encounters Encounter Date Encounter Type Care Provider Facility Start: 04-23-2025 ambulatory Dragan CASTELLON Fac ility:[facility] Start: 03-29-2025 ambulatory Health Risk Assessment Facility:[facility] Start: 01-24-2025 End: 01-25-2025 Refill Marbella Jaffe APRN.PATTERN DRUM MAKER Work Phone: OB/Gynecology Comment on above: Refill Request Start: 12-20-2024 End: 12-21-2024 ambulatory Nichole Corbin APRN.PATTERN DRUM MAKER Work Phone: [facility] [place] Comment on above: Thyroid med need asa p Start: 12-20-2024 End: 12-20-2024 Telephone encounter Nichole Corbin APRN.CNP Work Phone: [facility] Comment on above: Medication Request Start: 12-02-2024 End: 12-04-2024 Refill Abhijit Garrett MD Work Phone: Allergy Comment on above: Refill Request I used mine when I h ad an emergency last night Start: 11-20-2024 End: 11-20-2024 ambulatory Marbella Jaffe APRN.PATTERN DRUM MAKER Work Phone: OB/Gynecology Comment on above: why do I have an bruce t with you tomorrow? Start: 10-31-2024 End: 12-31-2024 Follow-up encounter Marbella Jaffe APRN.CNP Work Phone: OB/Gynecology Start: 10-19-2024 End: 10-19-2024 Patient encounter procedure Marbella Jaffe APRN.PATTERN DRUM MAKER Work Phone: OB/Gynecology Comment on above: Encounter for gyneco logical examination (general) (routine) without abnormal findings (Primary Dx); Encounter for screening mammogram for breast cancer; Screening for cervical cancer; Special screening examination for human papillomavirus (HPV); Encounter for surveillance of contraceptive pills Start: 10-19-2024 End: 10-19-2024 Patient encounter status Marbella Jaffe APRN.CNP Work Phone: [facility] Start: 10-19-2024 End: 10-19-2024 ambulatory PRINCE ROJASMELISSA CHEN Facility:[facility] Start: 10-19-2024 Encounter for gynecological examination (general) (routine) without abnormal findings MARBELLA JAFFE [facility] Start: 08-16-2024 End: 08-17-2024 ambulatory Marbella Jaffe APRN.CNP Work Phone: OB/Gynecology Comment on above: Medication Start: 08-16-2024 End: 08-16-2024 Refill Marbella Jaffe APRN.PATTERN DRUM MAKER Work Phone: OB/Gynecology Comment on above: Refill Request Start: 06-19-2024 End: 06-19-2024 Refill Nichole A Suppan C++ PROFESSOR.PATTERN DRUM MAKER Work Phone: [facility] [place] Comment on above: Refill Request Start: 05-08-2024 End: 05-08-2024 Refill Nichole A Suppan C++ PROFESSOR.PATTERN DRUM MAKER Work Phone: [facility] [place] Comment on above: Refill Request Start: 05-02-2024 End: 05-02-2024 Orders Only Nichole A Suppan C++ PROFESSOR.PATTERN DRUM MAKER Work Phone: [facility] [place] Comment on above: Multiple thyroid nod ules (Primary Dx) Start: 05-01-2024 End: 05-01-2024 ambulatory NICHOLE A SUPPAN Facility:[facility] Start: 05-01-2024 End: 05-01-2024 Subsequent hospital visit by physician Us [facility] Work Phone: Radiology Comment on above: Thyroid nodule, unin odular [E04.1] Start: 04-05-2024 End: 04-05-2024 ambulatory PRINCE CHEN Facility:[facility] Start: 04-05-2024 End: 04-05-2024 Subsequent hospital visit by physician Screen Mammo [facility] Comment on above: Encounter for screen ing mammogram for breast cancer [Z12.31] Start: 03-23-2024 End: 03-23-2024 ambulatory Marbella Pelham C++ PROFESSOR.PATTERN DRUM MAKER Work Phone: OB/Gynecology Comment on above: diflucan Start: 03-20-2024 End: 03-20-2024 ambulatory NICHOLE A SUPPAN Facility:[facility] Start: 03-20-2024 End: 03-20-2024 Office outpatient visit 15 minutes Nichole A Suppan C++ PROFESSOR.PATTERN DRUM MAKER Work Phone: [facility] [place] Comment on above: Weight loss (Primary Dx); Adjustment reaction with anxiety and depression Start: 03-15-2024 End: 03-20-2024 ambulatory Ila Chen PA-C Work Phone: Internal Medicine [place] [phone] Start: 03-10-2024 End: 03-10-2024 ambulatory Nichole A Suppan C++ PROFESSOR.PATTERN DRUM MAKER Work Phone: [facility] Comment on above: appt 03/13 Start: 03-09-2024 End: 03-09-2024 ambulatory NICHOLE A SUPPAN Facility:[facility] Start: 02-07-2024 End: 02-08-2024 Refill Nichole A Suppan C++ PROFESSOR.PATTERN DRUM MAKER Work Phone: [facility] Comment on above: Refill Request Levothyroxine Start: 12-23-2023 End: 12-23-2023 Office outpatient visit 15 minutes Nichole A Suppan C++ PROFESSOR.PATTERN DRUM MAKER Work Phone: [facility] Comment on above: Adjustment reaction with anxiety and depression (Primary Dx); 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; Screening for diabetes mellitus; Screening for lipid disorders Start: 11-26-2023 Refill Nichole A S uppan C++ PROFESSOR.PULMONOLOGIST INTENSIVIST Work Phone: [facility] Comment on above: Refill Request Start: 10-29-2023 Refill Ila torres PA-C Work Phone: [facility] Comment on above: Refill Request Start: 10-25-2023 MC Get Medical Advice Marbella granados C++ PROFESSOR.PATTERN DRUM MAKER Work Phone: OB/Gynecology Comment on above: Refill Start: 09-27-2023 End: 09-27-2023 Patient encounter procedure Marbella Jaffe C++ PROFESSOR.PATTERN DRUM MAKER Work Phone: OB/Gynecology Comment on above: Encounter for gyneco logical examination (general) (routine) without abnormal findings (Primary Dx); Encounter for screening for human papillomavirus (HPV); Screening for malignant neoplasm of cervix; Screen for STD (sexually transmitted disease); Vulvar lesion Start: 09-27-2023 End: 09-27-2023 Patient encounter status Marbella Jaffe C++ PROFESSOR.PATTERN DRUM MAKER Work Phone: [facility] Work Phone: Start: 09-23-2023 Telephone encounter Mami R Ath y PA-C Work Phone: [facility] Comment on above: Results Start: 09-22-2023 Telephone encounter Rogelio CASTELLON Work Phone: [facility] Comment on above: Medication Problem Start: 09-22-2023 End: 09-22-2023 Patient encounter procedure Rogelio Shaw PA Work Phone: [facility] Comment on above: Urinary tract infect ion without hematuria, site unspecified (Primary Dx); Dysuria Start: 09-03-2023 Get Medical Advice Ila Chen PA-C Work Phone: [facility] [place] Comment on above: need a refill please Start: 08-09-2023 ambulatory Ila Black on PA-C Work Phone: [facility] [place] Comment on above: Hilda Coles is no longer in business Start: 07-28-2023 Get Medical Advice Ila Chen PA-C Work Phone: [facility] [place] Comment on above: NEED REFILL TIESHA / C ALLED YESTERDAY Start: 07-27-2023 Refill Ila Black on PA-C Work Phone: [facility] [place] Comment on above: Refill Request Start: 07-17-2023 End: 07-17-2023 Emergency department patient visit DR BARBER CAPELLAN MD [facility] Start: 04-28-2023 End: 04-28-2023 Subsequent hospital visit by physician [facility] Work Phone: Radiology Comment on above: Thyroid nodule [E04. 1] Start: 04-21-2023 ambulatory Ila Black on PA-C Work Phone: [facility] [place] Comment on above: thyroid med Start: 04-07-2023 ambulatory Ila Black on PA-C Work Phone: Internal Medicine [facility] Start: 02-10-2023 Get Medical Advice Ila Chen PA-C Work Phone: [facility] Comment on above: PLEASE REFILL Start: 01-21-2023 Refill Ila Black on PA-C Work Phone: [facility] Comment on above: Refill Request Start: 01-20-2023 Refill Ila Black on PA-C Work Phone: [facility] Comment on above: Refill Request Start: 01-13-2023 ambulatory Abhijit Garrett MD Work Phone: Allergy Comment on above: Xolair Start: 01-13-2023 Refill Abhijit Garrett MD Work Phone: Allergy Comment on above: Refill Request Start: 12-17-2022 End: 12-17-2022 Patient encounter procedure Ila Chen PA-C Work Phone: [facility] Comment on above: Stress reaction (Liz shena Dx); Adjustment reaction with anxiety and depression; Chronic idiopathic urticaria; Thyroid nodule; Thyromegaly; 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 Start: 11-25-2022 Telephone encounter Abhijit patino MD Work Phone: Allergy Comment on above: Xolair Re-auth Start: 10-19-2022 ambulatory Ila Black on PA-C Work Phone: [facility] Comment on above: zoloft Start: 10-12-2022 Refill Treasure green MD Work Phone: Endocrinology Comment on above: Refill Request Start: 10-09-2022 Refill Treasure green MD Work Phone: Endocrinology Comment on above: Refill Request Start: 09-15-2022 End: 09-15-2022 ambulatory [facility] Work Phone: Start: 09-15-2022 End: 09-15-2022 Patient encounter procedure [facility] Start: 09-08-2022 End: 09-08-2022 ambulatory [facility] Work Phone: Start: 09-08-2022 End: 09-08-2022 Patient encounter procedure [facility]Laboratory, [place] [employer] 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 [employer] Start: 07-16-2022 Telephone encounter Ila CASTELLON-C Work Phone: [facility] Comment on above: Medication Request Start: 06-19-2022 End: 06-19-2022 ambulatory [facility] Work Phone: Start: 06-19-2022 End: 06-19-2022 Patient encounter procedure [facility], Specimen Start: 05-05-2022 ambulatory Abhijit Garrett MD Work Phone: Allergy Comment on above: appt Start: 04-24-2022 Refill Abhijit Garrett MD Work Phone: Allergy Comment on above: Refill Request Start: 03-26-2022 Registered Referred [facility] Start: 03-17-2022 End: 03-17-2022 ambulatory TREASURE ESCALOAN Facility:[facility] Start: 03-17-2022 End: 03-17-2022 ambulatory Treasure Escalona MD Work Phone: Endocrinology Comment on above: Hypothyroidism, unsp ecified type (Primary Dx); 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 Start: 03-17-2022 End: 03-17-2022 Telemedicine consultation with patient Treasure Escalona MD Work Phone: [facility] Start: 03-10-2022 End: 03-10-2022 ambulatory Ila CASTELLON-C Work Phone: [facility] Comment on above: Stress reaction (Liz shena Dx); Adjustment reaction with anxiety and depression; Thyroid nodule Start: 03-10-2022 End: 03-10-2022 Telemedicine consultation with patient Ila Dragan CUBAC Work Phone: [facility] Start: 03-04-2022 Refill Ila CASTELLON-C Work Phone: [facility] Comment on above: Refill Request Start: 02-22-2022 Telephone encounter Treasure bella MD Work Phone: Endocrinology Comment on above: Appointment Start: 02-10-2022 End: 02-10-2022 Subsequent hospital visit by physician [facility] Work Phone: Radiology Comment on above: Thyroid nodule [E04. 1] Start: 12-31-2021 Refill Abhijit Garrett MD Work Phone: Allergy Comment on above: Refill Request Start: 12-23-2021 Telephone encounter Abhijit patino MD Work Phone: Allergy Comment on above: xolair PA Start: 12-11-2021 End: 12-11-2021 ambulatory Abhijit Garrett MD Work Phone: Allergy Comment on above: Chronic idiopathic u rticaria (Primary Dx); Allergic rhinitis, unspecified seasonality, unspecified trigger Start: 12-11-2021 End: 12-11-2021 Telemedicine consultation with patient Abhijit Garrett MD Work Phone: [facility] Start: 12-08-2021 Telephone encounter Treasure bella MD Work Phone: Endocrinology Comment on above: Results Returning Patient's Call; Orders Start: 12-05-2021 Telephone encounter Abhijit patino MD Work Phone: Allergy Comment on above: xolair PA Start: 12-02-2021 Refill Treasure green MD Work Phone: Endocrinology Comment on above: Refill Request Start: 11-18-2021 Refill Treasure green MD Work Phone: Endocrinology Comment on above: Refill Request Start: 11-12-2021 Refill Treasure green MD Work Phone: Endocrinology Comment on above: Refill Request Start: 07-21-2019 End: 07-21-2019 Patient encounter procedure Shimon Smart MD Work Phone: [facility] Work Phone: Procedures Date Procedure Procedure Detail Performing Clinician Start: 04-05-2024 Screening digital br east tomosynthesis bi Bulk Order Provider Start: 12-23-2023 Adult depression screening assessment Nichole Corbin C++ PROFESSOR.PATTERN DRUM MAKER Work Phone: Start: 09-22-2023 Urnls dip stick/tabl et rgnt auto w/o microscopy Turdy Rey C++ PROFESSOR.PATTERN DRUM MAKER Work Phone: Start: 04-28-2023 Us soft tissue head & neck real time imge docm M Dragan Chen PA-C Work Phone: Start: 09-15-2022 Bilateral mammography Start: 09-15-2022 Ultrasonography of breast Start: 02-10-2022 Us soft tissue head & neck real time imge shoaib Escalona MD Work Phone: Start: 01-27-2022 Adult depression screening assessment Us 2 Work Phone: Start: 07-21-2019 End: 07-21-2019 [employer] ([employer]) Shimon villasenor MD Work Phone: Start: 07-21-2019 End: 07-21-2019 Blood pressure within normal parameters - no follow-up required Shimon Smart MD Work Phone: Start: 07-21-2019 End: 07-21-2019 BMI documented as above normal parameters - follow-up documented Shimon Smart MD Work Phone: Start: 07-21-2019 End: 07-21-2019 Documentation of current medications Shimon Smart MD Work Phone: Start: 07-21-2019 End: 07-21-2019 Pain assessment documented as positive - follow-up documented Shimon Smart MD Work Phone: Start: 07-21-2019 End: 07-21-2019 Radex ankle complete minimum 3 views Shimon Smart MD Work Phone: Start: 07-21-2019 End: 07-21-2019 Tobacco non-user Shimon Smart MD Work Phone: Start: 04-10-2019 Adult depression screening assessment Treasure Escalona MD Work Phone: Start: 11-13-2015 H/O: surgery History of pto sis repair Treasure Escalona MD Work Phone: NEGATED: Highlighted rowStart: 07-21-2019 End: 07-21-2019 Documentation of current medications Kristal Bryant LPN Plan of Treatment Date Care Activity Detail Author Start: 09-26-2028 Screening for malign ant neoplasm of cervix [facility] Start: 10-19-2025 Screening for malign ant neoplasm of cervix Cervical Cancer Screening [facility] Start: 05-02-2025 End: 06-01-2025 US Thyroid gland US THYROID/PARATHYROID Radiology Routine Multiple thyroid nodules Expected: 05/02/2025, Expires: 06/01/2025 [facility] Work Phone: Comment on above: Expected: 05/02/2025 , Expires: 06/01/2025 Start: 04-05-2025 Screening for malign ant neoplasm of breast Mammogram Screening [facility] Start: 03-20-2025 Annual PCP Team Mash Preparatory Operator avery Disease Visit Annual PCP Team Chronic Disease Visit [facility] Start: 02-12-2025 Influenza vaccination [facility] Start: 12-22-2024 Anxiety Screening Anxiety Screening [facility] Start: 12-22-2024 Depression Screening Depression Scre ening [facility] Start: 12-11-2024 Influenza vaccination Influenza Vacc ine (#1) [facility] Comment on above: Postponed from 02/12 (Declined at this time) Start: 11-21-2024 End: 11-21-2024 Patient encounter procedure 11/21/2024 3:00 PM EDT Office Visit OB/Gynecology [address] [place] [id number] Marbella Jaffe APRN.PATTERN DRUM MAKER [address] [place] [id number] Annual OB/Gynecology Comment on above: Annual Start: 09-28-2024 End: 09-28-2024 Patient encounter procedure 09/28/2024 7:00 AM EDT Office Visit OB/Gynecology [address] [place] [address] Marbella Jaffe APRN.PATTERN DRUM MAKER [address] [place] [address] Annual OB/Gynecology Comment on above: Annual Start: 09-26-2024 Screening for malign ant neoplasm of cervix Cervical Cancer Screening [facility] Start: 09-18-2024 End: 09-18-2024 Patient encounter procedure 09/18/2024 10:40 AM EDT Office Visit [facility] [address] [place] [address] Nichole Corbin APRN.PATTERN DRUM MAKER [address] [place] [address] 6 month f/u [facility] [place] Comment on above: 6 month f/u Start: 05-01-2024 End: 05-01-2024 Patient encounter procedure 05/01/2024 7:00 AM EST Appointment Radiology [address] [place] [address] Thyroid nodule, uninodular [E04.1] Radiology Comment on above: Thyroid nodule, unin odular [E04.1] Start: 04-05-2024 End: 04-05-2024 Patient encounter procedure 04/05/2024 11:10 AM EDT Appointment Mammogram [address] [place] [address] Mammogram Start: 03-24-2024 End: 06-23-2024 CBC panel - Blood by Automated count COMPLETE BLOOD COUNT Lab Routine Adjustment reaction with anxiety and depression Expected: 03/24/2024, Expires: 06/23/2024 [facility] Work Phone: Comment on above: Expected: 03/24/2024 , Expires: 06/23/2024 Start: 03-24-2024 End: 06-23-2024 Comprehensive metabolic 2000 panel - Serum or Plasma COMPREHENSIVE METABOLIC PANEL Lab Routine Adjustment reaction with anxiety and depression Expected: 03/24/2024, Expires: 06/23/2024 [facility] Comment on above: Expected: 03/24/2024 , Expires: 06/23/2024 Start: 03-24-2024 End: 06-23-2024 Hemoglobin A1c in Blood HEMOGLOBIN A1C Lab Routine Screening for diabetes mellitus Expected: 03/24/2024, Expires: 06/23/2024 [facility] Comment on above: Expected: 03/24/2024 , Expires: 06/23/2024 Start: 03-24-2024 End: 06-23-2024 Magnesium [Mass/volume] in Serum or Plasma MAGNESIUM Lab Routine Adjustment reaction with anxiety and depression Expected: 03/24/2024, Expires: 06/23/2024 [facility] Comment on above: Expected: 03/24/2024 , Expires: 06/23/2024 Start: 03-24-2024 End: 06-23-2024 Thyrotropin [Units/volume] in Serum or Plasma THYROID STIMULATING HORMONE Lab Routine 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 Expected: 03/24/2024, Expires: 06/23/2024 [facility] Comment on above: Expected: 03/24/2024 , Expires: 06/23/2024 Start: 03-20-2024 End: 03-20-2024 Patient encounter procedure 03/20/2024 11:40 AM EDT Office Visit [facility] [address] [place], [place] [id number] Nichole Corbin, C++ PROFESSOR.PATTERN DRUM MAKER [address] [place], [place] [id number] 3 month anxiety f/u [facility] Comment on above: 3 month anxiety f/u Start: 03-13-2024 End: 03-13-2024 Patient encounter procedure [facility] Comment on above: 3 month anxiety f/u Start: 02-13-2024 Influenza vaccination [facility] Start: 12-23-2023 End: 03-23-2024 LIPID PANEL, NONFASTING LIPID PANEL, NONFASTING Lab Routine Screening for lipid disorders Expected: 12/23/2023, Expires: 03/23/2024 [facility] Comment on above: Expected: 12/23/2023 , Expires: 03/23/2024 Start: 12-20-2023 End: 12-20-2023 Patient encounter procedure 12/20/2023 8:00 AM EDT Office Visit [facility] [address] [place] [address] Ila Chen PA-C [address] [place] [address] Annual [facility] Comment on above: Annual Start: 12-18-2023 ANNUAL PCP TEAM FLOOR INSTALLER AVERY DISEASE VISIT ANNUAL PCP TEAM CHRONIC DISEASE VISIT [facility] Start: 09-27-2023 End: 12-27-2023 Hepatitis B virus surface Ag [Presence] in Serum [facility] Work Phone: Comment on above: Expected: 09/27/2023 , Expires: 12/27/2023 Start: 09-27-2023 End: 12-27-2023 Hepatitis C virus Ab [Presence] in Serum [facility] Work Phone: Comment on above: Expected: 09/27/2023 , Expires: 12/27/2023 Start: 09-27-2023 End: 12-27-2023 HERPES SIMPLEX TYPE 1 AND 2 IG [facility] Work Phone: Comment on above: Expected: 09/27/2023 , Expires: 12/27/2023 Start: 09-27-2023 End: 12-27-2023 HIV 1+2 Ab [Presence] in Serum or Plasma by Immunoassay [facility] Work Phone: Comment on above: Expected: 09/27/2023 , Expires: 12/27/2023 Start: 09-27-2023 End: 12-27-2023 SYPHILIS TOTAL W/REFLEX [facility] Work Phone: Comment on above: Expected: 09/27/2023 , Expires: 12/27/2023 Start: 06-14-2023 Behavioral Health Screening Behavioral Health Screening [facility] Start: 06-14-2023 Depression Assessment Depression Ass essment [facility] Start: 03-10-2023 ANNUAL PCP TEAM FLOOR INSTALLER AVERY DISEASE VISIT ANNUAL PCP TEAM CHRONIC DISEASE VISIT [facility] Start: 2023 Mammography Mammogram Screening [facility] Start: 2023 Screening for malign ant neoplasm of breast Mammogram Screening [facility] Start: 02-12-2023 Influenza vaccination [facility] Start: 01-27-2023 Adult depression screening assessment DEPRESSION SCREENING [facility] Start: 01-27-2023 ANNUAL PCP TEAM FLOOR INSTALLER AVERY DISEASE VISIT ANNUAL PCP TEAM CHRONIC DISEASE VISIT [facility] Start: 12-17-2022 End: 02-16-2023 Basic metabolic 2000 panel - Serum or Plasma BASIC METABOLIC PNL Lab Routine 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 Expected: 12/17/2022, Expires: 02/16/2023 [facility] Work Phone: Comment on above: Expected: 12/17/2022 , Expires: 02/16/2023 Start: 12-17-2022 End: 02-16-2023 Comprehensive metabolic 2000 panel - Serum or Plasma COMP METABOLIC PANEL Lab Routine Adjustment reaction with anxiety and depression Thyromegaly Expected: 12/17/2022, Expires: 02/16/2023 [facility] Work Phone: Comment on above: Expected: 12/17/2022 , Expires: 02/16/2023 Start: 12-17-2022 End: 02-16-2023 Thyrotropin [Units/volume] in Serum or Plasma TSH BLD Lab Routine Thyromegaly 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 Expected: 12/17/2022, Expires: 02/16/2023 [facility] Work Phone: Comment on above: Expected: 12/17/2022 , Expires: 02/16/2023 Start: 12-17-2022 End: 02-16-2023 Thyroxine (T4) free [Mass/volume] in Serum or Plasma T4 FREE/FREE THYROX Lab Routine Thyromegaly 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 Expected: 12/17/2022, Expires: 02/16/2023 [facility] Work Phone: Comment on above: Expected: 12/17/2022 , Expires: 02/16/2023 Start: 06-14-2022 DEPRESSION ASSESSMENT [facility] Start: 02-12-2022 Influenza vaccination [facility] Start: 11-18-2021 End: 01-18-2022 Comprehensive metabolic 2000 panel - Serum or Plasma COMP METABOLIC PANEL Lab Routine 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 Expected: 11/18/2021 (Approximate), Expires: 01/18/2022 [facility] Work Phone: Comment on above: Expected: 11/18/2021 (Approximate), Expires: 01/18/2022 Start: 11-18-2021 End: 01-18-2022 T4 FREE/FREE THYROX T4 FREE/FREE THYROX Lab Routine 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 Expected: 11/18/2021 (Approximate), Expires: 01/18/2022 [facility] Work Phone: Comment on above: Expected: 11/18/2021 (Approximate), Expires: 01/18/2022 Start: 11-18-2021 End: 01-18-2022 Thyrotropin [Units/volume] in Serum or Plasma TSH BLD Lab Routine 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 Expected: 11/18/2021 (Approximate), Expires: 01/18/2022 [facility] Work Phone: Comment on above: Expected: 11/18/2021 (Approximate), Expires: 01/18/2022 Start: 10-27-2021 PAP TESTING PAP TESTING [facility] Start: 10-27-2021 Screening for malign ant neoplasm of cervix Pap Testing [facility] Start: 06-14-2021 DEPRESSION ASSESSMENT DEPRESSION ASS ESSMENT [facility] Start: 06-10-2021 ANNUAL PCP TEAM FLOOR INSTALLER AVERY DISEASE VISIT ANNUAL PCP TEAM CHRONIC DISEASE VISIT [facility] Start: 04-10-2020 Adult depression screening assessment DEPRESSION SCREENING [facility] Start: 09-18-2019 HPV TESTING HPV TESTING [facility] Start: 09-18-2019 Screening for malign ant neoplasm of cervix HPV Testing [facility] Start: 07-21-2019 End: 07-21-2019 Appointment Appointment [facility] Work Phone: Start: 2010 HPV Vaccine (1 - 3-d ose SCDM series) HPV Vaccine (1 - 3-dose SCDM series) [facility] Start: 2002 Hepatitis B Vaccine (1 of 3 - 19+ 3-dose series) Hepatitis B Vaccine (1 of 3 - 19+ 3-dose series) [facility] Start: 2002 Urine microalbumin profile [facility] Start: 2001 HEPATITIS C SCREENING HEPATITIS C [facility] Start: 2001 Hepatitis C screening Hepatitis C [facility] Start: 2001 HIV SCREENING HIV SCREENING [facility] Start: 2001 HIV screening HIV Screening [facility] Start: 1988 COVID-19 VACCINE (#1) COVID-19 VACCI NE (#1) [facility] Start: 1983 COVID-19 VACCINE (#1) COVID-19 VACCI NE (#1) [facility] Start: 1983 HEPATITIS B (1 of 3 - 3-dose series) HEPATITIS B (1 of 3 - 3-dose series) [facility] Start: 1983 Hepatitis B Vaccine (1 of 3 - 3-dose series) Hepatitis B Vaccine (1 of 3 - 3-dose series) [facility] Bacteria identified in Urine by Culture URINE CULTURE Microbiology Routine Dysuria 09/22/2023 8:00 AM EDT [facility] Work Phone: BACTERIAL VAGINOSIS NAAT BACTERIAL VAGINOSIS NAAT Lab Routine Dysuria 09/22/2023 7:59 AM EDT [facility] Work Phone: ANNAMARIE/TRICHOMONAS NAAT ANNAMARIE/TRICHOMONAS NAAT Lab Routine Dysuria 09/22/2023 7:59 AM T [facility] Work Phone: End: 04-14-2025 DBT Breast - bilateral screening GLORY SCREENING [facility] Radiology Routine Encounter for screening mammogram for breast cancer 1 Occurrences starting 03/15/2024 until 04/14/2025 [facility] Work Phone: Comment on above: 1 Occurrences starti ng 03/15/2024 until 04/14/2025 End: 11-18-2025 DBT Breast - bilateral screening GLORY SCREENING [facility] Radiology Routine Encounter for gynecological examination (general) (routine) without abnormal findings Encounter for screening mammogram for breast cancer 1 Occurrences starting 10/19/2024 until 11/18/2025 [facility] Work Phone: Comment on above: 1 Occurrences starti ng 10/19/2024 until 11/18/2025 Herpes simplex virus+Varicella zoster virus DNA [Presence] in Unspecified specimen by BAM with probe detection HSV1,2/VZV NAAT LESION Lab Routine Vulvar lesion 09/27/2023 8:19 AM EDT [facility] Work Phone: End: 05-06-2024 GLORY SCREENING GLORY SCREENING Radiology Routine Encounter for screening mammogram for breast cancer 1 Occurrences starting 04/07/2023 until 05/06/2024 [facility] Work Phone: Comment on above: 1 Occurrences starti ng 04/07/2023 until 05/06/2024 PAP TEST PAP TEST Lab [facility] Encounter for screening for human papillomavirus (HPV) Screening for malignant neoplasm of cervix 09/27/2023 8:19 AM EDT [facility] Work Phone: PAP TEST PAP TEST Lab [facility] el[facility] Screening for cervical cancer Special screening examination for human papillomavirus (HPV) 10/19/2024 1:59 PM [facility] End: 01-07-2023 Us soft tissue head & neck real time imge docm US THYROID/PARATHYROID Radiology Routine Thyroid nodule 1 Occurrences starting 12/08/2021 until 01/07/2023 [facility] Work Phone: Comment on above: 1 Occurrences starti ng 12/08/2021 until 01/07/2023 End: 01-16-2024 Us soft tissue head & neck real time imge docm US THYROID/PARATHYROID Radiology Routine Thyroid nodule 1 Occurrences starting 12/17/2022 until 01/16/2024 [facility] Work Phone: Comment on above: 1 Occurrences starti ng 12/17/2022 until 01/16/2024 US Thyroid gland US THYROID/PARA THYROID Radiology Routine Thyroid nodule, uninodular 05/01/2024 11:48 AM [facility] Work Phone: [facility] Immunizations Immunization Date Immunization Notes Care Provider Lucinda holland 05-24-2017 influenza virus vacc ine, unspecified formulation EZEQUIEL Chen PA-C Work Phone: [facility] Payers Date Payer Category Payer Self-pay [id number] 2019 [employer] BLUE ACCE SS PPO [id number] 2019 Unknown [employer] BLUE ACCE SS PPO [id number] 2019-Present [id number] 2019 Unknown ANTHEM BLUE ACCE SS PPO [id number] 2019-Present [phone] [id number] 2008 Unknown [id number] Unknown [id number] Unknown [id number] Social History Date Type Detail Facility Start: 07-21-2019 End: 07-21-2019 Assertion Unknown if ever smoked [facility] Work Phone: Start: 12-29-2010 End: 12-17-2022 Tobacco smoking status NHIS Never smoked tobacco [facility] Start: 01-27-2021 End: 10-19-2024 Alcohol intake Current drinker of alcohol (finding) [facility] Start: 01-27-2021 End: 12-14-2023 Alcohol intake [facility] Start: 03-07-2020 End: 12-17-2022 History SDOH Alcohol Frequency 4 [facility] Start: 03-07-2020 End: 12-17-2022 History SDOH Alcohol Std Drinks 1 [facility] Start: 03-07-2020 End: 12-17-2022 History SDOH Alcohol Binge 3 [facility] Start: 04-08-2020 End: 12-17-2022 History SDOH Social Connections Phone 5 [facility] Start: 03-07-2020 End: 12-17-2022 History SDOH Social Connections Uatsdin 2 [facility] Start: 04-08-2020 Education 14 [facility] Start: 1985 Sex Assigned At Female [facility] Start: 11-30-2021 End: 02-23-2022 Exposure to SARS-CoV-2 (event) Not sure [facility] Start: 12-29-2010 End: 12-17-2022 Tobacco use and exposure Smokeless tobacco non-user [facility] Work Phone: Start: 03-10-2022 End: 12-17-2022 History SDOH Social Connections Living 6 [facility] Start: 12-17-2022 End: 12-14-2023 Social connection and isolation panel [facility] Do you belong to any clubs or organizations such as zoroastrian groups, unions, fraternal or athletic groups, or school groups? No [facility] Are you now , , , , never or living with a partner? [facility] How often to you hav e a drink containing alcohol? 2-4 times a month [facility] How many standard dr inks containing alcohol do you have on a typical day? 1 or 2 [facility] How often do you hav e 6 or more drinks on 1 occasion? Less than monthly [facility] Start: 05-15-2012 How hard is it for you to pay for the very basics like food, housing, medical care, and heating Not hard at all [facility] Do you feel stress - tense, restless, nervous, or anxious, or unable to sleep at night because your mind is troubled all the time - these days [OSQ] Only a little [facility] (I/We) worried ashley er (my/our) food would run out before (I/we) got money to buy more. Never true [facility] In the past 12 month s, was there a time when you were not able to pay the mortgage or rent on time? Yes [facility] Start: 03-04-2020 Gender identity Identifies as female gender (finding) [facility] Start: 03-04-2020 Sexual orientation Heterosexual (finding) [facility] Functional Status Date Assessment Result Facility 07-17-2023 Functional Status Independent [facility] 07-17-2023 Functional Status Repositions self [facility] 10-02-2014 Are you deaf, or do you have serious difficulty hearing No 10/02/2014 9:40 AM EDT Juan Mauro No [facility] 10-02-2014 Are you blind, or do you have serious difficulty seeing, even when wearing glasses No 10/02/2014 9:40 AM EDT Juan Mauro No [facility] 10-02-2014 Do you have serious difficulty walking or climbing stairs No 10/02/2014 9:40 AM EDT Juan Mauro No [facility] 10-02-2014 Do you have difficul ty dressing or bathing No 10/02/2014 9:40 AM EDT Juan Mauro No [facility] 10-02-2014 Because of a physica l, mental, or emotional condition, do you have difficulty doing errands alone such as visiting a physician's office or shopping No 10/02/2014 9:40 AM EDT Juan Mauro No [facility] Mental Status Date Assessment Result Facility 07-17-2023 Mental Status Orientation Oriented x 4 [facility] Ann [facility]elles 10-02-2014 Because of a physica l, mental, or emotional condition, do you have serious difficulty concentrating, remembering, or making decisions No 10/02/2014 9:40 AM EDT Juan Mauro No [facility] Clinical Notes 10-08-2015 to 12-21-2024 Telephone Encounter - Nichole Corbin APRN.CNP - 12/21/2024 7:54 AM EDTTelephone Encounter - Nichole Corbin APRN.CNP - 12/21/2024 7:54 AM EDTCSarahi haas RDMS - 05/01/2024 11:30 AM EST Note Date & Type Note Facility 12-21-2024 Telephone encounter Note Rx filled yesterday. Pt. Will need follow up. Overdue [facility] 12-21-2024 Miscellaneous Notes Rx filled yesterday. Pt. Will need follow up. Overdue See phone encounter 12/20/24. Asia Mcgregor RN documented in this encounter [facility] 12-20-2024 Telephone encounter Note Attempted to reach patient and goes to voicemail. Left generic message since message didn't identify patient. [facility] 12-20-2024 Miscellaneous Notes Attempted to reach patient and goes to voicemail. Left generic message since message didn't identify patient. sent Images from the original note were not included. Patient calling in. Reports out of thyroid medication. Requesting tablet form. Has been without thyroid medication for 3 days. [facility]. Thank you. Marbella Ryanp My Chart Rx Pool (supporting Nichole Corbin APRN.CNP)2 hours ago (11:40 AM) Can you make my perscription the tablet form now...? Instead of the liquid filled pill (this one is really expensive). [facility] in says you need to send in a new perscription. I haven't had my pill in 3 days...need tiesha, please Asia Mcgregor RN documented in this encounter [facility] 12-20-2024 Telephone encounter Note sent [facility] 12-20-2024 Telephone encounter Note Images from the original note were not included. Patient calling in. Reports out of thyroid medication. Requesting tablet form. Has been without thyroid medication for 3 days. [facility]. Thank you. Marbella Trejo My Chart Rx Pool (supporting Nichole Corbin APRN.ROBIN)2 hours ago (11:40 AM) Can you make my perscription the tablet form now...? Instead of the liquid filled pill (this one is really expensive). [facility] in says you need to send in a new perscription. I haven't had my pill in 3 days...need tiesha, please Asia Mcgregor RN [facility] 12-20-2024 Telephone encounter Note See phone encounter 12/20/24. Asia Mcgregor RN [facility] 12-04-2024 Telephone encounter Note Sent to [facility]. [facility] 12-04-2024 Miscellaneous Notes Sent to [facility]. documented in this encounter [facility] 12-04-2024 Note Addended by: Savanna GARRETT on: 12/04/2024 10:41 AM Modules accepted: Orders [facility] 12-04-2024 Miscellaneous Notes Addended by: ABHIJIT GARRETT on: 12/04/2024 10:41 AM Modules accepted: Orders Please clarify pharmacy. There is more than one [facility] in [place], [place]. Let patient know that I will need to see her for a follow-up visit before I provide any additional refills. Abhijit Garrett MD Addended by: VIDYA HI on: 12/04/2024 08:35 AM Modules accepted: Orders Prescription Refill Information The patient has been identified by name and date of : Yes Caregiver verified no other encounters exist for this prescription request: Yes Caregiver confirmed with patient/requestor that no other refills are due, in the near future, with this provider at this time: Yes The last office visit in the department: 05/13/23 Does the patient have a future office visit with this provider/department: No Requested Prescriptions Pending Prescriptions Disp Refills EPINEPHrine (EPIPEN 2-HALI) 0.3 mg/0.3 mL auto-injector 2 each 2 Sig: Inject 0.3 mL intramuscularly as needed. For allergic reaction.Seek emergent medical care immediately after use.Disp:1 2-pakw/hardware trainer Vidya Hi RN December 04, 2024 8:19 AM documented in this encounter [facility] 12-04-2024 Telephone encounter Note Please clarify pharmacy. There [facility] [place] Let patient know that I will need to see her for a follow-up visit before I provide any additional refills. Abhijit Garrett MD [facility] 12-04-2024 Note Addended by: VIDYA HI on: 12/04/2024 08:35 AM Modules accepted: Orders [facility] 12-04-2024 Telephone encounter Note Prescription Refill Information The patient has been identified by name and date of : Yes Caregiver verified no other encounters exist for this prescription request: Yes Caregiver confirmed with patient/requestor that no other refills are due, in the near future, with this provider at this time: Yes The last office visit in the department: 05/13/23 Does the patient have a future office visit with this provider/department: No Requested Prescriptions Pending Prescriptions Disp Refills EPINEPHrine (EPIPEN 2-HALI) 0.3 mg/0.3 mL auto-injector 2 each 2 Sig: Inject 0.3 mL intramuscularly as needed. For allergic reaction.Seek emergent medical care immediately after use.Disp:1 2-pakw/hardware trainer Vidya Hi RN December 04, 2024 8:19 AM [facility] 10-19-2024 Note HNO ID: [id number] Author: MARBELLA JAFFE APRN.PATTERN DRUM MAKER Service: ? 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 Marbella is a 39 year old who presents for an annual gynecologic exam without complaints. Menses: cycles every 84 days and 4 days of flow. 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 LMP: 09/23/2024 (Exact Date), Having periods Age at Menarche: 10 Age at First : Age at Menopause: Technology Applications Teacher History Comments: Sexual Activity: Yes; Male Contraception: Pill Menstrual Tracking History Flowsheet Row Office Visit from 10/19/2024 in OB/Gynecology Period Cycle (Days) 60 Period Duration (Days) 5 Menstrual Flow Moderate PAST MEDICAL HISTORY Diagnosis Date Allergy History of HPV infection Hypothyroid Thyroid nodule Urticaria PAST SURGICAL HISTORY Procedure Laterality Date BLEPHAROPLASTY EXTENSIVE Right 11/05/2015 ML PAST SURGICAL HISTORY OF pre-cancerousskin lesions removed from breast TOE SURGERY HX Bilateral TOOTH EXTRACTION wisdom teeth FAMILY HISTORY Problem Relation Age of Onset Cancer Mother Thyroid Cancer Thyroid Mother Thyroid Father Breast Cancer Paternal Grandmother Aneurysm Paternal Grandfather SOCIAL HISTORY Social History Tobacco Use Smoking status: Never Smokeless tobacco: Never Vaping Use Vaping status: Never Used Substance Use Topics Alcohol use: Yes Alcohol/week: 1.0 standard drink of alcohol Types: 1 Cans of Beer (12oz) per week Comment: socially Drug use: No REVIEW OF SYSTEMS Abdomen: No abdominal pain, nausea, vomiting, diarrhea, or constipation. No bloating, early satiety, indigestion, or increased flatulence. Bladder: No dysuria, gross hematuria, urinary frequency, urinary urgency, or incontinence. Breast: No breast lumps, nipple d/c, overlying skin changes, redness or skin retraction. Allergies and current medication updated:Yes SENSITIVE EXAM: The sensitive examination was discussed with the Patient or Patient's Authorized [place] Physical Therapist Assistant. As applicable, any other physician, advance practice provider, medical student, or other health professional student that will be observing or involved in the sensitive examination for educational or training purposes was discussed with the Patient or Authorized Per Diem Physical Therapist Assistant. The Patient or Authorized Per Diem Physical Therapist Assistant has agreed to proceed with the sensitive examination. (Sensitive examination includes inspection and/or palpation of the breasts, pelvis, prostate and anorectal regions). EXAM: BP 122/64 Ht 5' 6.063 (1.68m) Wt 195 lb 9.6 oz (88.7kg) LMP 09/23/2024 BMI 31.51 kg/(m2). GENERAL: pleasant, female in no apparent distress HEENT: Normocephalic, atraumatic, mucus membranes moist, and no lesions DERMATOLOGY: Normal, without lesions, non-icteric, and non-hirsute BREAST: soft, non-tender, symmetric, no dominant mass, normal nipple-areolar complex, no lymphadenopathy, and no nipple discharge CHEST: Normal inspiratory effort ABDOMEN: soft, non-tender, and no masses PELVIC: external genitalia normal, normal Bartholin's glands, urethra, [place]'s glands, no vulvar lesions, no cervical lesions, good vaginal support, physiologic discharge present, normal appearing perineal body and perianal region BIMANUAL: uterus normal size, shape and consistency, no adnexal masses, and non-tender NEURO: alert and oriented x3,exam grossly non-focal EXTREMITIES: normal ASSESSMENT/PLAN: 1) Health maintenance: Pap done with HPV. Mammogram ordered. Nutrition, exercise and routine health maintenance exams reviewed. Calcium/Vitamin D supplementation information provided. Colon cancer screening: start at age 45 2) Contraception: combined hormonal contraceptives. Contraceptive options reviewed and information provided. 3) STD screening: Declined STD check. 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 Marbella is a 39 year old who presents for an annual gynecologic exam without complaints. Menses: cycles every 84 days and 4 days of flow. 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 LMP: 09/23/2024 (Exact Date), Having periods Age at Menarche: 10 Age at First : Age at Menopause: Technology Applications Teacher History Comments: Sexual Activity: Yes; Male Contraception: Pill Menstrual Tracking History Flowsheet Row Office Visit from 10/19/2024 in OB/Gynecology Period Cycle (Days) 60 Period Duration (Days) 5 Menstrual Flow Moderate PAST MEDICAL HISTORY Diagnosis Date Allergy History of HPV infection Hypothyroid Thyroid nodule Urticaria PAST SURGICAL HISTORY Procedure Laterality Date BLEPHAROPLASTY EXTENSIVE Right 11/05/2015 ML PAST SURGICAL HISTORY OF pre-cancerousskin lesions removed from breast TOE SURGERY HX Bilateral TOOTH EXTRACTION wisdom teeth FAMILY HISTORY Problem Relation Age of Onset Cancer Mother Thyroid Cancer Thyroid Mother Thyroid Father Breast Cancer Paternal Grandmother Aneurysm Paternal Grandfather SOCIAL HISTORY Social History Tobacco Use Smoking status: Never Smokeless tobacco: Never Vaping Use Vaping status: Never Used Substance Use Topics Alcohol use: Yes Alcohol/week: 1.0 standard drink of alcohol Types: 1 Cans of Beer (12oz) per week Comment: socially Drug use: No REVIEW OF SYSTEMS Abdomen: No abdominal pain, nausea, vomiting, diarrhea, or constipation. No bloating, early satiety, indigestion, or increased flatulence. Bladder: No dysuria, gross hematuria, urinary frequency, urinary urgency, or incontinence. Breast: No breast lumps, nipple d/c, overlying skin changes, redness or skin retraction. Allergies and current medication updated:Yes SENSITIVE EXAM: The sensitive examination was discussed with the Patient or Patient's Authorized Per Diem Physical Therapist Assistant. As applicable, any other physician, advance practice provider, medical student, or other health professional student that will be observing or involved in the sensitive examination for educational or training purposes was discussed with the Patient or Authorized Per Diem Physical Therapist Assistant. The Patient or Authorized Per Diem Physical Therapist Assistant has agreed to proceed with the sensitive examination. (Sensitive examination includes inspection and/or palpation of the breasts, pelvis, prostate and anorectal regions). EXAM: BP 122/64 Ht 5' 6.063 (1.68m) Wt 195 lb 9.6 oz (88.7kg) LMP 09/23/2024 BMI 31.51 kg/(m^2). GENERAL: pleasant, female in no apparent distress HEENT: Normocephalic, atraumatic, mucus membranes moist, and no lesions DERMATOLOGY: Normal, without lesions, non-icteric, and non-hirsute BREAST: soft, non-tender, symmetric, no dominant mass, normal nipple-areolar complex, no lymphadenopathy, and no nipple discharge CHEST: Normal inspiratory effort ABDOMEN: soft, non-tender, and no masses PELVIC: external genitalia normal, normal Bartholin's glands, urethra, [place]'s glands, no vulvar lesions, no cervical lesions, good vaginal support, physiologic discharge present, normal appearing perineal body and perianal region BIMANUAL: uterus normal size, shape and consistency, no adnexal masses, and non-tender NEURO: alert and oriented x3,exam grossly non-focal EXTREMITIES: normal ASSESSMENT/PLAN: 1) Health maintenance: Pap done with HPV. Mammogram ordered. Nutrition, exercise and routine health maintenance exams reviewed. Calcium/Vitamin D supplementation information provided. Colon cancer screening: start at age 45 2) Contraception: combined hormonal contraceptives. Contraceptive options reviewed and information provided. 3) STD screening: Declined STD check. 4) Follow up one year or sooner as needed Marbella Jaffe APRN.ROBIN documented in this encounter [facility] 08-16-2024 Telephone encounter Note Requested Prescriptions Pending Prescriptions Disp Refills valACYclovir (VALTREX) 1 gram tablet 5 tablet 3 Sig: Take 1 tablet by mouth once daily for 5 days. Recent Office Visits - This Specialty 09/27/2023 Encounter for gynecological examination (general) (routine) without abnormal findings OB/Gynecology Marbella Jaffe APRN.ROBIN Next visit in this department: 09/28/2024 Betty Keith RN [facility] 08-16-2024 Miscellaneous Notes Requested Prescriptions Pending Prescriptions Disp Refills valACYclovir (VALTREX) 1 gram tablet 5 tablet 3 Sig: Take 1 tablet by mouth once daily for 5 days. Recent Office Visits - This Specialty 09/27/2023 Encounter for gynecological examination (general) (routine) without abnormal findings OB/Gynecology Marbella Jaffe APRN.CNP Next visit in this department: 09/28/2024 Betty Keith, RN documented in this encounter [facility] 06-19-2024 Telephone encounter Note The following approved medication requests have been transmitted electronically. Requested Prescriptions Pending Prescriptions Disp Refills montelukast (SINGULAIR) 10 mg tablet 90 tablet 1 Sig: Take 1 tablet by mouth daily at bedtime. Nichole Corbin APRN.CNP [facility] 06-19-2024 Miscellaneous Notes The following approved medication requests have been transmitted electronically. Requested Prescriptions Pending Prescriptions Disp Refills montelukast (SINGULAIR) 10 mg tablet 90 tablet 1 Sig: Take 1 tablet by mouth daily at bedtime. Nichole Corbin APRN.CNP Prescription Refill Information The patient has been identified by name and date of : Yes Caregiver verified no other encounters exist for this prescription request: Yes Caregiver confirmed with patient/requestor that no other refills are due, in the near future, with this provider at this time: Yes The last office visit in the department: 03/20/24 (CELE) Does the patient have a future office visit with this provider/department: Yes, 09/18/24 (CELE) Requested Prescriptions Pending Prescriptions Disp Refills montelukast (SINGULAIR) 10 mg tablet 90 tablet 0 Sig: Take 1 tablet by mouth daily at bedtime. buPROPion SR (WELLBUTRIN SR) 150 mg 12 hr tablet 60 tablet 5 Sig: Take 1 tablet by mouth two times a day. *Wellbutrin- last rx written 03/20/24 #60 with 5 refills. Pt not due for refill until September. message advising pt of the same. Jimmy Ceballos LPN June 19, 2024 11:36 AM documented in this encounter [facility] 06-19-2024 Telephone encounter Note Prescription Refill Information The patient has been identified by name and date of : Yes Caregiver verified no other encounters exist for this prescription request: Yes Caregiver confirmed with patient/requestor that no other refills are due, in the near future, with this provider at this time: Yes The last office visit in the department: 03/20/24 (CELE) Does the patient have a future office visit with this provider/department: Yes, 09/18/24 (CELE) Requested Prescriptions Pending Prescriptions Disp Refills montelukast (SINGULAIR) 10 mg tablet 90 tablet 0 Sig: Take 1 tablet by mouth daily at bedtime. buPROPion SR (WELLBUTRIN SR) 150 mg 12 hr tablet 60 tablet 5 Sig: Take 1 tablet by mouth two times a day. *Wellbutrin- last rx written 03/20/24 #60 with 5 refills. Pt not due for refill until September. message advising pt of the same. Jimmy Ceballos LPN June 19, 2024 11:36 AM [facility] 05-08-2024 Telephone encounter Note The following approved medication requests have been transmitted electronically. Requested Prescriptions Pending Prescriptions Disp Refills busPIRone (BUSPAR) 5 mg tablet 90 tablet 1 Sig: Take 1 tablet by mouth three times a day as needed. Nichole Corbin APRN.CNP [facility] 05-08-2024 Miscellaneous Notes The following approved medication requests have been transmitted electronically. Requested Prescriptions Pending Prescriptions Disp Refills busPIRone (BUSPAR) 5 mg tablet 90 tablet 1 Sig: Take 1 tablet by mouth three times a day as needed. Nichole Corbin APRN.CNP Prescription Refill Information The patient has been identified by name and date of : Yes Caregiver verified no other encounters exist for this prescription request: Yes Caregiver confirmed with patient/requestor that no other refills are due, in the near future, with this provider at this time: Yes The last office visit in the department: 03/20/2024 Does the patient have a future office visit with this provider/department: Yes, 09/18/2024 Requested Prescriptions Pending Prescriptions Disp Refills busPIRone (BUSPAR) 5 mg tablet 90 tablet 1 Sig: Take 1 tablet by mouth three times a day as needed. SISI Allen May 08, 2024 11:57 AM documented in this encounter [facility] 05-08-2024 Telephone encounter Note Prescription Refill Information The patient has been identified by name and date of : Yes Caregiver verified no other encounters exist for this prescription request: Yes Caregiver confirmed with patient/requestor that no other refills are due, in the near future, with this provider at this time: Yes The last office visit in the department: 03/20/2024 Does the patient have a future office visit with this provider/department: Yes, 09/18/2024 Requested Prescriptions Pending Prescriptions Disp Refills busPIRone (BUSPAR) 5 mg tablet 90 tablet 1 Sig: Take 1 tablet by mouth three times a day as needed. SISI Allen May 08, 2024 11:57 AM [facility] 05-02-2024 Note HNO ID: [id number] Author: NICHOLE CORBIN APRN.CNP Service: ? Author Type: Clinical Nurse Specialist Type: Progress Notes Filed: 05/02/2024 12:44 Note Text: Thyroid ultrasound scheduled for next year. To be checked 1, 3, and 5 years. Several nodules noted [facility] 05-02-2024 History of Presen t illness Narrative Thyroid ultrasound scheduled for next year. To be checked 1, 3, and 5 years. Several nodules noted documented in this encounter [facility] 05-01-2024 History of Presen t illness Narrative Radiology Service Progress Note PATIENT NAME: Marbella Payan DATE OF SERVICE: May 01, 2024 TIME: 11:43 AM PATIENT IDENTITY VERIFICATION COMPLETED USING TWO (2) IDENTIFIERS: Name and Date of confirmed by patient verbally. FALL SCREENING: Has the patient had 2 falls in the last year or 1 fall with injury or currently using an Ambulatory Assistive Device (Walker, Cane, Wheelchair, Crutches, etc.)? No PATIENT GENDER DATA: Female. status: : No status: NO. PATIENT RELEVANT IMPLANT DATA REVIEWED: Not Applicable PATIENT PRESENTS WITH AN IMPLANTABLE OR ATTACHED WASHING MACHINE INSTALLER: No RADIOLOGY DEPARTMENT: Ultrasound PERIPHERAL IV DATA: Not applicable SIGNED BY: Sarahi Smith RDMS May 01, 2024 11:43 AM documented in this encounter [facility] 05-01-2024 Note HNO ID: [id number] Author: SARAHI SMITH RDMS Service: ? Author Type: Fruit Harvester Machine Operator Type: Progress Notes Filed: 05/01/2024 11:43 Note Text: Radiology Service Progress Note PATIENT NAME: Marbella Payan DATE OF SERVICE: May 01, 2024 TIME: 11:43 AM PATIENT IDENTITY VERIFICATION COMPLETED USING TWO (2) IDENTIFIERS: Name and Date of confirmed by patient verbally. FALL SCREENING: Has the patient had 2 falls in the last year or 1 fall with injury or currently using an Ambulatory Assistive Device (Walker, Cane, Wheelchair, Crutches, etc.)? No PATIENT GENDER DATA: Female. status: : No status: NO. PATIENT RELEVANT IMPLANT DATA REVIEWED: Not Applicable PATIENT PRESENTS WITH AN IMPLANTABLE OR ATTACHED WASHING MACHINE INSTALLER: No RADIOLOGY DEPARTMENT: Ultrasound PERIPHERAL IV DATA: Not applicable SIGNED BY: Sarahi Smith RDMS May 01, 2024 11:43 AM [facility] 04-05-2024 History of Presen t illness Narrative Radiology Service Progress Note PATIENT NAME: Marbella Payan DATE OF SERVICE: April 05, 2024 TIME: 2:06 PM PATIENT IDENTITY VERIFICATION COMPLETED USING TWO (2) IDENTIFIERS: Name and Date of confirmed by patient verbally. FALL SCREENING: Has the patient had 2 falls in the last year or 1 fall with injury or currently using an Ambulatory Assistive Device (Walker, Cane, Wheelchair, Crutches, etc.)? No PATIENT GENDER DATA: Female. status: : No status: NO. PATIENT RELEVANT IMPLANT DATA REVIEWED: Not Applicable PATIENT PRESENTS WITH AN IMPLANTABLE OR ATTACHED WASHING MACHINE INSTALLER: No RADIOLOGY DEPARTMENT: Mammography PERIPHERAL IV DATA: Not applicable SIGNED BY: Mor Cotto April 05, 2024 2:06 PM documented in this encounter [facility] 04-05-2024 Note HNO ID: [id number] Author: ANALI KING Mammo Tech Service: ? Author Type: Fruit Harvester Machine Operator Type: Progress Notes Filed: 04/05/2024 14:08 Note Text: Radiology Service Progress Note PATIENT NAME: Marbella Payan DATE OF SERVICE: April 05, 2024 TIME: 2:06 PM PATIENT IDENTITY VERIFICATION COMPLETED USING TWO (2) IDENTIFIERS: Name and Date of confirmed by patient verbally. FALL SCREENING: Has the patient had 2 falls in the last year or 1 fall with injury or currently using an Ambulatory Assistive Device (Walker, Cane, Wheelchair, Crutches, etc.)? No PATIENT GENDER DATA: Female. status: : No status: NO. PATIENT RELEVANT IMPLANT DATA REVIEWED: Not Applicable PATIENT PRESENTS WITH AN IMPLANTABLE OR ATTACHED WASHING MACHINE INSTALLER: No RADIOLOGY DEPARTMENT: Mammography PERIPHERAL IV DATA: Not applicable SIGNED BY: Mor Cotto April 05, 2024 2:06 PM [facility] 03-23-2024 Telephone encounter Note 5 doses last sent in September. RX pending. Requested Prescriptions Pending Prescriptions Disp Refills fluconazole (DIFLUCAN) 150 mg tablet 1 tablet 4 Sig: Take 1 tablet by mouth one time only for 1 dose. Betty Keith RN [facility] 03-23-2024 Miscellaneous Notes 5 doses last sent in September. RX pending. Requested Prescriptions Pending Prescriptions Disp Refills fluconazole (DIFLUCAN) 150 mg tablet 1 tablet 4 Sig: Take 1 tablet by mouth one time only for 1 dose. Betty Keith RN documented in this encounter [facility] 03-20-2024 Instructions Nichole Corbin APRN.CNP - 03/20/2024 12:32 PM EDT 1) add Wellbutrin 150 mg 2 x day 2) Continue other medications 3) Follow up in 6 months documented in this encounter [facility] 03-20-2024 Note HNO ID: [id number] Author: NICHOLE CORBIN APRN.CNP Service: ? Author Type: Clinical Nurse Specialist Type: Progress Notes Filed: 03/20/2024 12:32 Note Text: This is a 39 year old female who presents today with: No chief complaint on file. HISTORY OF PRESENT ILLNESS: Marbella Payan is a 39 year old female. No chief complaint on file. Anxiety is improved. Using Buspar prn. Wanting help with weight loss. 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 Thyroid WNL. Exercises Stimulants not a good d/t anxiety PAST MEDICAL HISTORY: PAST MEDICAL HISTORY Diagnosis Date Allergy History of HPV infection Hypothyroid Thyroid nodule Urticaria PAST SURGICAL HISTORY Procedure Laterality Date BLEPHAROPLASTY EXTENSIVE Right 11/05/2015 ML PAST SURGICAL HISTORY OF pre-cancerousskin lesions removed from breast TOE SURGERY HX Bilateral TOOTH EXTRACTION wisdom teeth ALLERGIES Seasonal Allergies MEDICATIONS Current Outpatient Medications Medication Sig levothyroxine 100 mcg cap take 1 capsule by mouth once daily BEFORE BREAKFAST busPIRone (BUSPAR) 5 mg tablet Take 1 tablet by mouth three times a day as needed. montelukast (SINGULAIR) 10 mg tablet Take 1 tablet by mouth daily at bedtime. BIOTIN ORAL Take by mouth. L-Norgest and E Estradiol-E Estrad 0.15 mg-30 mcg (84)/10 mcg (7) Take 1 tablet by mouth once daily. triamcinolone acetonide (NASACORT ALLERGY) 55 mcg nasal inhaler Use 2 Sprays in the nose as needed. EPINEPHrine (EPIPEN 2-HALI) 0.3 mg/0.3 mL auto-injector Inject 0.3 mL intramuscularly as needed. For allergic reaction.Seek emergent medical care immediately after use.Disp:1 2-pakw/hardware trainer hydrOXYzine HCl (ATARAX) 25 mg tablet Take 1-2 tablets by mouth every 6 hours as needed. For itching. levocetirizine (XYZAL) 5 mg tablet Take 1 tablet by mouth once daily. TURMERIC ORAL Take by mouth. diphenhydrAMINE (BENADRYL) 25 mg capsule Take 25 mg by mouth every 6 hours as needed. cholecalciferol, vitamin D3, (VITAMIN D3 ORAL) Take 5,000 Units by mouth once daily. Diltiazem 2% Ointment (rectal fissures) Apply to rectum 2-3 times daily and as needed. (TAKE TO BRIAN RX TO FILL) meclizine 25 mg Tab Take 1 tablet by mouth every 6 hours as needed. FOR DIZZINESS sertraline (ZOLOFT) 100 mg tablet Take 1 tablet by mouth once daily. scopolamine (TRANSDERM-SCOP) patch 1.5 mg/72 hr (delivers 1 mg over 3 days) Apply 1 Patch as directed every 72 hours. Apply patch to skin behind ear 4hrs prior to travel. No current facility-administered medications for this visit. FAMILY HISTORY Problem Relation Age of Onset Cancer Mother Thyroid Cancer Thyroid Mother Thyroid Father Breast Cancer Paternal Grandmother Aneurysm Paternal Grandfather Social History Tobacco Use Smoking status: Never Smokeless tobacco: Never Vaping Use Vaping status: Never Used Substance Use Topics Alcohol use: Yes Alcohol/week: 1.0 standard drink of alcohol Types: 1 Cans of Beer (12oz) per week Comment: socially Drug use: No EXAM: BP 112/70 Pulse 85 Wt 87.5 kg (193 lb) LMP 09/06/2023 (Approximate) SpO2 98% BMI 31.15 kg/m? PHYSICAL EXAM: Physical Exam Vitals reviewed. Constitutional: Appearance: Normal appearance. HENT: Head: Normocephalic. Cardiovascular: Rate and Rhythm: Normal rate and regular rhythm. Pulses: Normal pulses. Heart sounds: Normal heart sounds. Pulmonary: Effort: Pulmonary effort is normal. Breath sounds: Normal breath sounds. Skin: General: Skin is warm and dry. Neurological: Mental Status: She is alert. Psychiatric: Mood and Affect: Mood normal. Behavior: Behavior normal. LABS: reviewed labs ASSESSMENT/PLAN: 1. Weight loss - ICD9: 783.21, ICD10: R63.4 (primary diagnosis) Would like assistance - BUPROPION HCL SR 150 MG TABLET,12 HR SUSTAINED-RELEASE 2. 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 Patient's questions answered appropriately. Medications and potential side effects were discussed and patient voices understanding. Return to the office as scheduled or as needed for worsening/no improvement. Nichole Corbin, KD.[facility] 03-20-2024 History of Presen t illness Narrative This is a 39 year old female who presents today with: No chief complaint on file. HISTORY OF PRESENT ILLNESS: Marbella Payan is a 39 year old female. No chief complaint on file. Anxiety is improved. Using Buspar prn. Wanting help with weight loss. 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 Thyroid WNL. Exercises Stimulants not a good d/t anxiety PAST MEDICAL HISTORY: PAST MEDICAL HISTORY Diagnosis Date Allergy History of HPV infection Hypothyroid Thyroid nodule Urticaria PAST SURGICAL HISTORY Procedure Laterality Date BLEPHAROPLASTY EXTENSIVE Right 11/05/2015 ML PAST SURGICAL HISTORY OF pre-cancerousskin lesions removed from breast TOE SURGERY HX Bilateral TOOTH EXTRACTION wisdom teeth ALLERGIES Seasonal Allergies MEDICATIONS Current Outpatient Medications Medication Sig levothyroxine 100 mcg cap take 1 capsule by mouth once daily BEFORE BREAKFAST busPIRone (BUSPAR) 5 mg tablet Take 1 tablet by mouth three times a day as needed. montelukast (SINGULAIR) 10 mg tablet Take 1 tablet by mouth daily at bedtime. BIOTIN ORAL Take by mouth. L-Norgest and E Estradiol-E Estrad 0.15 mg-30 mcg (84)/10 mcg (7) Take 1 tablet by mouth once daily. triamcinolone acetonide (NASACORT ALLERGY) 55 mcg nasal inhaler Use 2 Sprays in the nose as needed. EPINEPHrine (EPIPEN 2-HALI) 0.3 mg/0.3 mL auto-injector Inject 0.3 mL intramuscularly as needed. For allergic reaction.Seek emergent medical care immediately after use.Disp:1 2-pakw/hardware trainer hydrOXYzine HCl (ATARAX) 25 mg tablet Take 1-2 tablets by mouth every 6 hours as needed. For itching. levocetirizine (XYZAL) 5 mg tablet Take 1 tablet by mouth once daily. TURMERIC ORAL Take by mouth. diphenhydrAMINE (BENADRYL) 25 mg capsule Take 25 mg by mouth every 6 hours as needed. cholecalciferol, vitamin D3, (VITAMIN D3 ORAL) Take 5,000 Units by mouth once daily. Diltiazem 2% Ointment (rectal fissures) Apply to rectum 2-3 times daily and as needed. (TAKE TO [facility] TO FILL) meclizine 25 mg Tab Take 1 tablet by mouth every 6 hours as needed. FOR DIZZINESS sertraline (ZOLOFT) 100 mg tablet Take 1 tablet by mouth once daily. scopolamine (TRANSDERM-SCOP) patch 1.5 mg/72 hr (delivers 1 mg over 3 days) Apply 1 Patch as directed every 72 hours. Apply patch to skin behind ear 4hrs prior to travel. No current facility-administered medications for this visit. FAMILY HISTORY Problem Relation Age of Onset Cancer Mother Thyroid Cancer Thyroid Mother Thyroid Father Breast Cancer Paternal Grandmother Aneurysm Paternal Grandfather Social History Tobacco Use Smoking status: Never Smokeless tobacco: Never Vaping Use Vaping status: Never Used Substance Use Topics Alcohol use: Yes Alcohol/week: 1.0 standard drink of alcohol Types: 1 Cans of Beer (12oz) per week Comment: socially Drug use: No EXAM: BP 112/70 Pulse 85 Wt 87.5 kg (193 lb) LMP 09/06/2023 (Approximate) SpO2 98% BMI 31.15 kg/m PHYSICAL EXAM: Physical Exam Vitals reviewed. Constitutional: Appearance: Normal appearance. HENT: Head: Normocephalic. Cardiovascular: Rate and Rhythm: Normal rate and regular rhythm. Pulses: Normal pulses. Heart sounds: Normal heart sounds. Pulmonary: Effort: Pulmonary effort is normal. Breath sounds: Normal breath sounds. Skin: General: Skin is warm and dry. Neurological: Mental Status: She is alert. Psychiatric: Mood and Affect: Mood normal. Behavior: Behavior normal. LABS: reviewed labs ASSESSMENT/PLAN: 1. Weight loss - ICD9: 783.21, ICD10: R63.4 (primary diagnosis) Would like assistance - BUPROPION HCL SR 150 MG TABLET,12 HR SUSTAINED-RELEASE 2. 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 Patient's questions answered appropriately. Medications and potential side effects were discussed and patient voices understanding. Return to the office as scheduled or as needed for worsening/no improvement. Nichole Corbin APRN.PATTERN DRUM MAKER documented in this encounter [facility] 03-15-2024 Note Patient Outreach (IN [facility]) MARBELLA PAYAN ([id number]) 1985 F Date Time Provider Department 03/15/24 Ila CHEN During your visit today, we recorded the following information about you: Allergies As of Date: 03/15/2024 Noted Allergy Reaction SEASONAL ALLERGIES 03/21/2013 14 - Other: See Comments Comments: Gets itchy/burning eyes. Date Reviewed: 12/23/2023 Reviewed by: Nichole Corbin APRN.PATTERN DRUM MAKER - Fully Assessed Visit Diagnosis:Encounter for screening mammogram for breast cancer [Z12.31] Order(s):GLORY SCREENING W VIDHI [[id number]] Order #: [id number] FUTURE Prescriptions as of 03/20/2024 - levothyroxine 100 mcg cap take 1 capsule by mouth once daily BEFORE BREAKFAST - busPIRone (BUSPAR) 5 mg tablet Take 1 tablet by mouth three times a day as needed. - montelukast (SINGULAIR) 10 mg tablet Take 1 tablet by mouth daily at bedtime. - sertraline (ZOLOFT) 100 mg tablet Take 1 tablet by mouth once daily. - BIOTIN ORAL Take by mouth. - sertraline (ZOLOFT) 100 mg tablet Take 1 tablet by mouth once daily. - L-Norgest and E Estradiol-E Estrad 0.15 mg-30 mcg (84)/10 mcg (7) Take 1 tablet by mouth once daily. - triamcinolone acetonide (NASACORT ALLERGY) 55 mcg nasal inhaler Use 2 Sprays in the nose as needed. - EPINEPHrine (EPIPEN 2-HALI) 0.3 mg/0.3 mL auto-injector Inject 0.3 mL intramuscularly as needed. For allergic reaction.Seek emergent medical care immediately after use.Disp:1 2-pakw/hardware trainer - hydrOXYzine HCl (ATARAX) 25 mg tablet Take 1-2 tablets by mouth every 6 hours as needed. For itching. - levocetirizine (XYZAL) 5 mg tablet Take 1 tablet by mouth once daily. - TURMERIC ORAL Take by mouth. - scopolamine (TRANSDERM-SCOP) patch 1.5 mg/72 hr (delivers 1 mg over 3 days) Apply 1 Patch as directed every 72 hours. Apply patch to skin behind ear 4hrs prior to travel. - diphenhydrAMINE (BENADRYL) 25 mg capsule Take 25 mg by mouth every 6 hours as needed. - cholecalciferol, vitamin D3, (VITAMIN D3 ORAL) Take 5,000 Units by mouth once daily. - Diltiazem 2% Ointment (rectal fissures) Apply to rectum 2-3 times daily and as needed. (TAKE TO [facility] TO FILL) - meclizine 25 mg Tab Take 1 tablet by mouth every 6 hours as needed. 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 Lizbeth Freire LPN [facility] 02-08-2024 Miscellaneous Notes MC message sent and VM left to update Rx's sent as requested. Lizbeth Freire LPN Done Prescription Refill Information The patient has been identified by name and date of : Yes Caregiver verified no other encounters exist for this prescription request: Yes Caregiver confirmed with patient/requestor that no other refills are due, in the near future, with this provider at this time: Yes The last office visit in the department: 12/23/23 Does the patient have a future office visit with this provider/department: Yes:03/13/24 Requested Prescriptions Pending Prescriptions Disp Refills busPIRone (BUSPAR) 5 mg tablet 90 tablet 2 Sig: Take 1 tablet by mouth three times a day as needed. montelukast (SINGULAIR) 10 mg tablet 90 tablet 3 Sig: Take 1 tablet by mouth daily at bedtime. sertraline (ZOLOFT) 100 mg tablet 90 tablet 2 Sig: Take 1 tablet by mouth once daily. Alley Hay MA February 07, 2024 4:40 PM documented in this encounter [facility] 02-07-2024 Telephone encounter Note Done [facility] 02-07-2024 Telephone encounter Note Prescription Refill Information The patient has been identified by name and date of : Yes Caregiver verified no other encounters exist for this prescription request: Yes Caregiver confirmed with patient/requestor that no other refills are due, in the near future, with this provider at this time: Yes The last office visit in the department: 12/2023 Does the patient have a future office visit with this provider/department: Yes 02/2024 Last refill; 12/23/2023 90 day tablets to [facility] in [place]. [place] pharmacy is now closed. Patient request [facility] [place] Requested Prescriptions Pending Prescriptions Disp Refills levothyroxine 100 mcg cap 90 capsule 1 Sig: take 1 capsule by mouth once daily BEFORE BREAKFAST Melisa Wright MA February 07, 2024 4:30 PM [facility] 02-07-2024 Miscellaneous Notes Prescription Refill Information The patient has been identified by name and date of : Yes Caregiver verified no other encounters exist for this prescription request: Yes Caregiver confirmed with patient/requestor that no other refills are due, in the near future, with this provider at this time: Yes The last office visit in the department: 12/2023 Does the patient have a future office visit with this provider/department: Yes 02/2024 Last refill; 12/23/2023 90 day tablets to [facility] in [place]. [place] pharmacy is now closed. [facility] request [facility] [place] Requested Prescriptions Pending Prescriptions Disp Refills levothyroxine 100 mcg cap 90 capsule 1 Sig: take 1 capsule by mouth once daily BEFORE BREAKFAST Melisa Wright MA February 07, 2024 4:30 PM documented in this encounter [facility] 02-07-2024 Telephone encounter Note Prescription Refill Information The patient has been identified by name and date of : Yes Caregiver verified no other encounters exist for this prescription request: Yes Caregiver confirmed with patient/requestor that no other refills are due, in the near future, with this provider at this time: Yes The last office visit in the department: 12/23/23 Does the patient have a future office visit with this provider/department: Yes:03/13/24 Requested Prescriptions Pending Prescriptions Disp Refills busPIRone (BUSPAR) 5 mg tablet 90 tablet 2 Sig: Take 1 tablet by mouth three times a day as needed. montelukast (SINGULAIR) 10 mg tablet 90 tablet 3 Sig: Take 1 tablet by mouth daily at bedtime. sertraline (ZOLOFT) 100 mg tablet 90 tablet 2 Sig: Take 1 tablet by mouth once daily. Alley Hay MA February 07, 2024 4:40 PM [facility] 12-23-2023 Instructions Nichole Corbin APRN.CNP - 12/23/2023 1:24 PM EDT 1) Get labs check in February 2) Follow up routine care in 3 months documented in this encounter [facility] 12-23-2023 History of Presen t illness Narrative This is a 38 year old female who presents today with: Patient presents with: Yearly Exam HISTORY OF PRESENT ILLNESS: Marbella Payan is a 38 year old female. Patient presents with: Yearly Exam Sertraline working well. Occasionally having panic attacks. During periods of stress, she has palpitations. SOB. Would like to continue sertraline, it is the only thing that helped but would like a little boost. 12/23/2023 03/10/2022 01/27/2022 DYLAN - 2/7 SCORES DYLAN-2 Score 4 2 4 DYLAN-7 Score 10 2 9 PAST MEDICAL HISTORY: PAST MEDICAL HISTORY Diagnosis Date Allergy History of HPV infection Hypothyroid Thyroid nodule Urticaria PAST SURGICAL HISTORY Procedure Laterality Date BLEPHAROPLASTY EXTENSIVE Right 11/05/2015 ML PAST SURGICAL HISTORY OF pre-cancerousskin lesions removed from breast TOE SURGERY HX Bilateral TOOTH EXTRACTION wisdom teeth ALLERGIES Seasonal Allergies MEDICATIONS Current Outpatient Medications Medication Sig BIOTIN ORAL Take by mouth. levothyroxine 100 mcg cap take 1 capsule by mouth once daily BEFORE BREAKFAST sertraline (ZOLOFT) 100 mg tablet Take 1 tablet by mouth once daily. L-Norgest and E Estradiol-E Estrad 0.15 mg-30 mcg (84)/10 mcg (7) Take 1 tablet by mouth once daily. triamcinolone acetonide (NASACORT ALLERGY) 55 mcg nasal inhaler Use 2 Sprays in the nose as needed. EPINEPHrine (EPIPEN 2-HALI) 0.3 mg/0.3 mL auto-injector Inject 0.3 mL intramuscularly as needed. For allergic reaction.Seek emergent medical care immediately after use.Disp:1 2-pakw/hardware trainer hydrOXYzine HCl (ATARAX) 25 mg tablet Take 1-2 tablets by mouth every 6 hours as needed. For itching. levocetirizine (XYZAL) 5 mg tablet Take 1 tablet by mouth once daily. montelukast (SINGULAIR) 10 mg tablet Take 1 tablet by mouth daily at bedtime. TURMERIC ORAL Take by mouth. scopolamine (TRANSDERM-SCOP) patch 1.5 mg/72 hr (delivers 1 mg over 3 days) Apply 1 Patch as directed every 72 hours. Apply patch to skin behind ear 4hrs prior to travel. diphenhydrAMINE (BENADRYL) 25 mg capsule Take 25 mg by mouth every 6 hours as needed. cholecalciferol, vitamin D3, (VITAMIN D3 ORAL) Take 5,000 Units by mouth once daily. meclizine 25 mg Tab Take 1 tablet by mouth every 6 hours as needed. FOR DIZZINESS sertraline (ZOLOFT) 100 mg tablet Take 1 tablet by mouth once daily. Magnesium 250 mg tab Take by mouth once daily. glucosamine sulfate (GLUCOSAMINE ORAL) Take by mouth once daily. Diltiazem 2% Ointment (rectal fissures) Apply to rectum 2-3 times daily and as needed. (TAKE TO [facility] TO FILL) No current facility-administered medications for this visit. FAMILY HISTORY Problem Relation Age of Onset Cancer Mother Thyroid Cancer Thyroid Mother Thyroid Father Breast Cancer Paternal Grandmother Aneurysm Paternal Grandfather Social History Tobacco Use Smoking status: Never Smokeless tobacco: Never Vaping Use Vaping Use: Never used Substance Use Topics Alcohol use: Yes Alcohol/week: 1.0 standard drink of alcohol Types: 1 Cans of Beer (12oz) per week Comment: socially Drug use: No EXAM: BP 120/78 Pulse 85 Wt 84.8 kg (187 lb) LMP 09/06/2023 (Approximate) SpO2 98% BMI 30.18 kg/m PHYSICAL EXAM: Physical Exam Vitals reviewed. Constitutional: Appearance: Normal appearance. Cardiovascular: Rate and Rhythm: Normal rate and regular rhythm. Heart sounds: Normal heart sounds. Pulmonary: Effort: Pulmonary effort is normal. Breath sounds: Normal breath sounds. Abdominal: Palpations: Abdomen is soft. Neurological: General: No focal deficit present. Mental Status: She is alert. Psychiatric: Mood and Affect: Mood normal. Behavior: Behavior normal. Thought Content: Thought content normal. Judgment: Judgment normal. LABS: TSH in Feb. normal ASSESSMENT/PLAN: 1. Adjustment reaction with anxiety and depression - ICD9: 309.28, ICD10: F43.23 (primary diagnosis) Ongoing, wants a PRN medication along with sertraline (declined increase in sertraline) - SERTRALINE 100 MG TABLET - BUSPIRONE 5 MG TABLET 3 x day as needed - COMPLETE BLOOD COUNT - COMPREHENSIVE METABOLIC PANEL - MAGNESIUM 2. 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 - LEVOTHYROXINE 100 MCG CAPSULE renewed - THYROID STIMULATING HORMONE 3. Screening for diabetes mellitus - ICD9: V77.1, ICD10: Z13.1 Check labs in Feb. - HEMOGLOBIN A1C 4. Screening for lipid disorders - ICD9: V77.91, ICD10: Z13.220 Check labs in Feb. - LIPID PANEL, NONFASTING Discussed treatment plan and patient voices understanding. Patient's questions answered appropriately. Medications and potential side effects were discussed and patient voices understanding. Return to the office as scheduled or as needed for worsening/no improvement. Nichole Corbin APRN.PATTERN DRUM MAKER documented in this encounter [facility] 11-26-2023 Telephone encounter Note Pt scheduled for 12/20/23. Jimmy Ceballos LPN [facility] 11-26-2023 Telephone encounter Note Pt scheduled for 12/20/23. [facility] 11-26-2023 Miscellaneous Notes Pt scheduled for 12/20/23. Jimmy Ceballos LPN Prescription Refill Information The patient has been identified by name and date of : Yes Caregiver verified no other encounters exist for this prescription request: Yes Caregiver confirmed with patient/requestor that no other refills are due, in the near future, with this provider at this time: Yes The last office visit in the department: 12/17/22 Does the patient have a future office visit with this provider/department: No, Pt due for annual 12/18/23 or after. MC message to pt advising of the same. Requested Prescriptions Pending Prescriptions Disp Refills levothyroxine 100 mcg cap 30 capsule 1 Sig: take 1 capsule by mouth once daily BEFORE BREAKFAST Jimmy Ceballos LPN November 26, 2023 8:59 AM documented in this encounter [facility] 11-26-2023 Miscellaneous Notes Pt scheduled for 12/20/23. Prescription Refill Information The patient has been identified by name and date of : Yes Caregiver verified no other encounters exist for this prescription request: Yes Caregiver confirmed with patient/requestor that no other refills are due, in the near future, with this provider at this time: Yes The last office visit in the department: 12/17/22 Does the patient have a future office visit with this provider/department: No, Pt due for Annual appt around 12/18/23. MC message to pt advising of the same. Requested Prescriptions Pending Prescriptions Disp Refills sertraline (ZOLOFT) 100 mg tablet 30 tablet 0 Sig: Take 1 tablet by mouth once daily. Jimmy Ceballos LPN November 26, 2023 9:02 AM documented in this encounter [facility] 11-26-2023 Telephone encounter Note Prescription Refill Information The patient has been identified by name and date of : Yes Caregiver verified no other encounters exist for this prescription request: Yes Caregiver confirmed with patient/requestor that no other refills are due, in the near future, with this provider at this time: Yes The last office visit in the department: 12/17/22 Does the patient have a future office visit with this provider/department: No, Pt due for Annual appt around 12/18/23. MC message to pt advising of the same. Requested Prescriptions Pending Prescriptions Disp Refills sertraline (ZOLOFT) 100 mg tablet 30 tablet 0 Sig: Take 1 tablet by mouth once daily. Jimmy Ceballos LPN November 26, 2023 9:02 AM [facility] 11-26-2023 Telephone encounter Note Prescription Refill Information The patient has been identified by name and date of : Yes Caregiver verified no other encounters exist for this prescription request: Yes Caregiver confirmed with patient/requestor that no other refills are due, in the near future, with this provider at this time: Yes The last office visit in the department: 7/6/23 Does the patient have a future office visit with this provider/department: No, Pt due for annual 12/18/23 or after. message to pt advising of the same. Requested Prescriptions Pending Prescriptions Disp Refills levothyroxine 100 mcg cap 30 capsule 1 Sig: take 1 capsule by mouth once daily BEFORE BREAKFAST Jimmy Ceballos LPN November 26, 2023 8:59 AM [facility] 10-29-2023 Telephone encounter Note The following approved medication requests have been transmitted electronically. Requested Prescriptions Pending Prescriptions Disp Refills levothyroxine 100 mcg cap 30 capsule 1 Sig: take 1 capsule by mouth once daily BEFORE BREAKFAST Nichole Corbin APRN.PULMONOLOGIST INTENSIVIST [facility] 10-29-2023 Miscellaneous Notes The following approved medication requests have been transmitted electronically. Requested Prescriptions Pending Prescriptions Disp Refills levothyroxine 100 mcg cap 30 capsule 1 Sig: take 1 capsule by mouth once daily BEFORE BREAKFAST Nichole Corbin APRN.PULMONOLOGIST INTENSIVIST Patient has been identified by name and date of : Yes Patient phones for refill(s): Requested Prescriptions Pending Prescriptions Disp Refills levothyroxine 100 mcg cap 90 capsule 1 Sig: take 1 capsule by mouth once daily BEFORE BREAKFAST Date of last office visit in primary care: 12/17/2022 Date of next office visit in primary care: Visit date not found Please advise. Thank you. Jimmy Ceballos LPN. documented in this encounter [facility] 10-29-2023 Telephone encounter Note Patient has been identified by name and date of : Yes Patient phones for refill(s): Requested Prescriptions Pending Prescriptions Disp Refills levothyroxine 100 mcg cap 90 capsule 1 Sig: take 1 capsule by mouth once daily BEFORE BREAKFAST Date of last office visit in primary care: 12/17/2022 Date of next office visit in primary care: Visit date not found Please advise. Thank you. Jimmy Ceballos LPN. [facility] 10-26-2023 Note Addended by: MARBELLA JAFFE on: 10/26/2023 04:56 PM Modules accepted: Orders [facility] 10-26-2023 Miscellaneous Notes Addended by: MARBELLA JAFFE on: 10/26/2023 04:56 PM Modules accepted: Orders Addended by: MAGDALENA BLAKE on: 10/26/2023 03:06 PM Modules accepted: Orders documented in this encounter [facility] 10-26-2023 Note Addended by: MAGDALENA BLAKE on: 10/26/2023 03:06 PM Modules accepted: Orders [facility] 09-27-2023 History of Presen t illness Narrative Marbella is a 38 year old No obstetric history on file. who presents for an annual gynecologic exam with complaints, vaginal discharge, vulvar irritation, and sores . Currently being treated for BV Menses: cycles every 84 days and 4 days of flow. 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 LMP: 09/06/2023 (Approximate), Having periods Age at Menarche: Age at First : Age at Menopause: Technology Applications Teacher History Comments: Sexual Activity: Yes; Male Contraception: No contraception data on record PAST MEDICAL HISTORY Diagnosis Date Allergy Hypothyroid Thyroid nodule Urticaria PAST SURGICAL HISTORY Procedure Laterality Date BLEPHAROPLASTY EXTENSIVE Right 11/05/2015 ML PAST SURGICAL HISTORY OF pre-cancerousskin lesions removed from breast TOE SURGERY HX Bilateral TOOTH EXTRACTION wisdom teeth FAMILY HISTORY Problem Relation Age of Onset Cancer Mother Thyroid Cancer Thyroid Mother Thyroid Father Breast Cancer Paternal Grandmother Aneurysm Paternal Grandfather SOCIAL HISTORY Social History Tobacco Use Smoking status: Never Smokeless tobacco: Never Vaping Use Vaping Use: Never used Substance Use Topics Alcohol use: Yes Alcohol/week: 1.0 standard drink of alcohol Types: 1 Cans of Beer (12oz) per week Comment: socially Drug use: No REVIEW OF SYSTEMS Abdomen: No abdominal pain, nausea, vomiting, diarrhea, or constipation. No bloating, early satiety, indigestion, or increased flatulence. Bladder: No dysuria, gross hematuria, urinary frequency, urinary urgency, or incontinence. Breast: No breast lumps, nipple d/c, overlying skin changes, redness or skin retraction. Allergies and current medication updated:Yes EXAM: BP 122/84 Ht 5' 6 (1.68m) Wt 194 lb (88.0kg) LMP 09/06/2023 BMI 31.33 kg/(m^2). GENERAL: pleasant, female in no apparent distress HEENT: Normocephalic, atraumatic, mucus membranes moist, and no lesions NECK: Supple, full range of motion, no adenopathy, and thyroid normal DERMATOLOGY: Normal, without lesions, non-icteric, and non-hirsute BREAST: soft, non-tender, symmetric, no dominant mass, normal nipple-areolar complex, no lymphadenopathy, and no nipple discharge CHEST: Normal inspiratory effort ABDOMEN: soft, non-tender, and no masses PELVIC: external genitalia normal, normal Bartholin's glands, urethra, [place]'s glands, good vaginal support, physiologic discharge present, normal appearing perineal body and perianal region, vulvar lesion to b/l labia and clitoris, possible HSV lesion to cervix BIMANUAL: uterus normal size, shape and consistency, no adnexal masses, non-tender, and no cervical motion tenderness RECTOVAGINAL: deferred. NEURO: alert and oriented x3,exam grossly non-focal EXTREMITIES: normal ASSESSMENT/PLAN: 1. Encounter for gynecological examination (general) (routine) without abnormal findings - ICD9: V72.31, ICD10: Z01.419 (primary diagnosis) - Completed pap test and breast exam - check HPV - Set up for mammogram, yearly mammogram recommended - Encouraged monthly BSE - Follow up for annual exam in one year. 2. Encounter for screening for human papillomavirus (HPV) - ICD9: V73.81, ICD10: Z11.51 - PAP TEST 3. Screening for malignant neoplasm of cervix - ICD9: V76.2, ICD10: Z12.4 - PAP TEST 4. Screen for STD (sexually transmitted disease) - ICD9: V74.5, ICD10: Z11.3 - SYPHILIS TOTAL W/REFLEX - HIV 1/2 COMBO WITH REFLEX TO DIFFERENTIATION - HEPATITIS C ANTIBODY IA WITH CONFIRMATION - HEPATITIS B SURFACE ANTIGEN - HERPES SIMPLEX TYPE 1 AND 2 IG 5. Vulvar lesion - ICD9: 624.8, ICD10: N90.89 - HSV1,2/VZV NAAT LESION Valtrex 1000 mg ordered Diflucan ordered OCP renewed Marbella Jaffe APRN.PATTERN DRUM MAKER documented in this encounter [facility] 09-24-2023 Miscellaneous Notes Patient given results and verbalized understanding of instructions given. Emilia Jones LPN Please call patient and let her know that urine culture did not reveal any bacterial growth, therefore she does not have a UTI. She may stop the nitrofurantoin/macrobid. Please continue the metronidazole that was prescribed for the bacterial vaginosis. documented in this encounter [facility] 09-23-2023 Miscellaneous Notes Pt notified and states she understands Emilia Jones LPN Medication was sent. She may want to take showers until medication is finished. Pt was notified with results and pt reports the Medication was sent to the wrong pharmacy. Pt uses [facility] in [place]. Please resent. Pt also has a question. Can she take baths in tub? Please advise pt. Left voicemail for patient to call and ask to a triage nurse for results. Radha Eddy Please call and let patient know her vaginal swabs were positive for bacterial vaginosis. I did send Flagyl in to treat this. Do not drink any alcohol while on this as it will cause vomiting. Follow-up with women's health if symptoms or not improving. Urine culture is still pending, continue the Macrobid. documented in this encounter [facility] 09-22-2023 Miscellaneous Notes Pt was seen this am and medication was sent to the wrong pharmacy. Please resend to [facility]. Yeimi Chen LPN documented in this encounter [facility] 09-22-2023 History of Presen t illness Narrative This note was created using [employer]Cho[employer]. Subjective Marbella Payan is a 38 year old female. HPI 38-year-old female presents for UTI symptoms. Patient states that 4 days ago she started having burning with urination. She has some frequency and urgency. She has been taking Azo to help with the burning. She denies any vaginal discharge, but states that she does have a little bit of a foul odor, unsure if this is urine or discharge. She has no vaginal itching. No concern for STD. States her abdomen and back feels a little bit achy. She denies ever having a UTI in the past. She does report she used new soap and believes this is what caused it. PAST MEDICAL HISTORY Diagnosis Date Allergy Hypothyroid Thyroid nodule Urticaria PAST SURGICAL HISTORY Procedure Laterality Date BLEPHAROPLASTY EXTENSIVE Right 11.04.16 ML TOOTH EXTRACTION wisdom teeth ALLERGIES Seasonal Allergies MEDICATIONS L-Norgest and E Estradiol-E Estrad 0.15 mg-30 mcg (84)/10 mcg (7) Take 1 tablet by mouth once daily. sertraline (ZOLOFT) 100 mg tablet Take 1 tablet by mouth once daily. sertraline (ZOLOFT) 100 mg tablet Take 1 tablet by mouth once daily. triamcinolone acetonide (NASACORT ALLERGY) 55 mcg nasal inhaler Use 2 Sprays in the nose as needed. EPINEPHrine (EPIPEN 2-HALI) 0.3 mg/0.3 mL auto-injector Inject 0.3 mL intramuscularly as needed. For allergic reaction.Seek emergent medical care immediately after use.Disp:1 2-pakw/hardware trainer hydrOXYzine HCl (ATARAX) 25 mg tablet Take 1-2 tablets by mouth every 6 hours as needed. For itching. levocetirizine (XYZAL) 5 mg tablet Take 1 tablet by mouth once daily. montelukast (SINGULAIR) 10 mg tablet Take 1 tablet by mouth daily at bedtime. omalizumab (XOLAIR) 150 mg/mL syringe Inject 2 mL subcutaneously every 6 weeks. levothyroxine 100 mcg cap take 1 capsule by mouth once daily BEFORE BREAKFAST MAGNESIUM ORAL Take by mouth. glucosamine sulfate (GLUCOSAMINE ORAL) Take by mouth. TURMERIC ORAL Take by mouth. scopolamine (TRANSDERM-SCOP) patch 1.5 mg/72 hr (delivers 1 mg over 3 days) Apply 1 Patch as directed every 72 hours. Apply patch to skin behind ear 4hrs prior to travel. diphenhydrAMINE (BENADRYL) 25 mg capsule Take 25 mg by mouth every 6 hours as needed. cholecalciferol, vitamin D3, (VITAMIN D3 ORAL) Take 5,000 Units by mouth once daily. Diltiazem 2% Ointment (rectal fissures) Apply to rectum 2-3 times daily and as needed. (TAKE TO [facility]AN [facility] TO FILL) meclizine 25 mg Tab Take 1 tablet by mouth every 6 hours as needed. FOR DIZZINESS nitrofurantoin monohydrate and macrocrystal (MACROBID) 100 mg capsule Take 1 capsule by mouth two times a day for 5 days. FAMILY HISTORY Problem Relation Age of Onset Cancer Mother Thyroid Cancer Thyroid Mother Thyroid Father Social History Tobacco Use Smoking status: Never Smokeless tobacco: Never Substance Use Topics Alcohol use: Yes Alcohol/week: 1.0 standard drink of alcohol Types: 1 Cans of Beer (12oz) per week Comment: socially Drug use: No Review of Systems Constitutional: Negative for chills and fever. HENT: Negative for congestion, ear pain and sore throat. Respiratory: Negative for cough and shortness of breath. Cardiovascular: Negative for chest pain. Gastrointestinal: Negative for abdominal pain, diarrhea and vomiting. Genitourinary: Positive for dysuria, frequency and urgency. Negative for hematuria, menstrual problem, pelvic pain, vaginal bleeding, vaginal discharge and vaginal pain. Objective BP 110/62 Pulse 101 Temp 36.2 C (97.2 F) Resp 18 Wt 87.5 kg (192 lb 14.4 oz) LMP 01/20/2021 (Approximate) SpO2 98% BMI 31.14 kg/m Physical Exam Vitals and nursing note reviewed. Constitutional: General: She is not in acute distress. Appearance: Normal appearance. She is not toxic-appearing. HENT: Nose: Nose normal. Mouth/Throat: Mouth: Mucous membranes are moist. Eyes: Conjunctiva/sclera: Conjunctivae normal. Cardiovascular: Rate and Rhythm: Normal rate and regular rhythm. Pulmonary: Effort: Pulmonary effort is normal. Breath sounds: Normal breath sounds. Abdominal: General: Abdomen is flat. Palpations: Abdomen is soft. Tenderness: There is no abdominal tenderness. There is no right CVA tenderness or left CVA tenderness. Neurological: Mental Status: She is alert. Assessment and Plan ASSESSMENT/PLAN: 1. Urinary tract infection without hematuria, site unspecified - ICD9: 599.0, ICD10: N39.0 (primary diagnosis) acute - UA positive for rafi esterase, hematuria, proteinuria, and nitrates, on AZO - Send urine for culture - Begin treatment with Macrobid 100 mg BID for 5 days - Patient education for prevention given 2. Dysuria - ICD9: 788.1, ICD10: R30.0 - See above - UA DIP, URINE (POC) - URINE CULTURE - ANNAMARIE/TRICHOMONAS NAAT - BACTERIAL VAGINOSIS NAAT - Patient self swabbed. Please treat based on vaginal swab results. Diagnosis and treatment plan were discussed and questions were answered to the patient's satisfaction. Pt acknowledged understanding of concepts and follow up plan. Specific signs and symptoms that would indicate the need for higher level of care were discussed in detail warranting prompt ER evaluation. RAVINDER Kraft documented in this encounter [facility] 08-10-2023 Miscellaneous Notes Last OV 12/17/2022 documented in this encounter [facility] 07-27-2023 Miscellaneous Notes Patient has been identified by name and date of : Yes, Patient phones for refill(s): Requested Prescriptions Pending Prescriptions Disp Refills sertraline (ZOLOFT) 100 mg tablet 30 tablet 2 Sig: Take 1 tablet by mouth once daily. Date of last office visit in primary care: 12/17/2022 Date of next office visit in primary care: Visit date not found Please advise. Thank you. Nichole Hansen LPN. documented in this encounter [facility] 07-17-2023 Hospital Discharg e instructions Patient Education 07/17/2023 14:47:22 Mastitis Mastitis Mastitis occurs when breast tissue becomes swollen and inflamed. This is almost always due to infection. Mastitis most often affects women during the first 6 weeks after childbirth. For this reason, it s also known as mastitis. Infection may happen after a duct becomes clogged, causing milk to back up in the breast. Mastitis may also occur if bacteria enter the breast through small cracks in the nipple. (Less often, mastitis occurs in women who aren t . If you have mastitis that is not due to , your healthcare provider will give you more information as needed. Treatment may include some of the same home care measures listed below.) Mastitis may cause flu-like symptoms such as fever, aches, and fatigue. The affected breast may feel painful, warm, tender, firm, or swollen. The skin over the breast may be red (often in a wedge-shaped pattern). You may feel a burning a sensation when . In most cases, mastitis can be treated with antibiotics. This should clear the infection. If treatment is delayed, a pocket of pus (abscess) can form in the breast tissue. A procedure may then be needed to drain the pus. In severe cases of infection, other treatments may be needed. Home care It s very important to keep the milk flowing from the infected breast. Continue from both breasts as usual. This will not hurt the baby. If this is too painful, use a breast pump to remove milk from the infected side. This can be fed to your baby or discarded. Note: If you don't continue to breastfeed or pump your breast, bacteria can grow in the milk that is left in your breast. This can make your infection worse. Tell your healthcare provider if you have problems with . He or she may suggest changes to your technique, if needed. You may also be referred to a nurse or risk management consultant for support with . General care Take any medicines you re prescribed as directed. If you re taking antibiotics, be sure to complete all of the medicine even if you start to feel better. Ldgs-zeh-xohjauq pain medicines may also be recommended. Don t use breast creams or other products or medicines without talking to your healthcare provider first. Note: If you re concerned about taking medicines while , talk to your healthcare provider. Rest as often as needed. Also be sure to drink plenty of fluids. To help relieve pain and swelling, heat or ice may be used. Apply as often as directed by your provider. oHeat: Place a warm compress on the breast. Use a towel soaked in hot water, a heating pad, or a hot water bottle. oCold: Place a cold compress on the breast. Use an ice pack or bag of ice wrapped in a thin towel. Never place a cold source directly on the skin. Follow-up care Follow up with your healthcare provider as advised. When to seek medical advice Call your healthcare provider right away if any of these occur: Fever of 100.4 F (38 C) or higher, or as directed by your provider Shaking chills Worsening symptoms or symptoms that don't improve within 48 to 72 hours of starting treatment New symptoms develop 3494-9690 The [employer]. [address] [place] [address]. All rights reserved. This information is not intended as a substitute for professional medical care. Always follow your healthcare professional's instructions. Follow Up Care 07/17/2023 11:32:55 With:GERMAINE LLAMAS Address: [address] [place] [address] [place], [place] [address] (1) When:2-4 days Comments:Take antibiotics as prescribed. Follow close with your doctor, return if any worsening or concerning symptoms. With:Follow up with primary care provider Address:Unknown When:2-4 days [facility] 07-17-2023 Note Discharge Instructions Thank you for allowing [facility] to assist you with your healthcare needs. The following is important discharge information regarding your hospital visit. Diagnosis from Today's Visit Breast Pain/Swelling Cellulitis Dizziness What to Do Next Instructions from Your Care Team No qualifying data available. Post Acute Orders No qualifying data available. You Need to Schedule the Following Appointments Follow Up with GERMAINE LLAMAS When Within 2-4 days Why: Take antibiotics as prescribed. Follow close with your doctor, return if any worsening or concerning symptoms. Where: [address] [place] [address] Breast [place], [place] [address] (1) Follow Up with Follow up with primary care provider When Within 2-4 days Allergies NKA Medications Please ask your primary doctor or pharmacist before taking any other medication not listed, including over the counter drugs, herbal medications, vitamins and or supplements as they may interact with your home medications. What How Much When Instructions Last Dose New dicloxacillin (dicloxacillin 500 mg oral capsule) 1 cap by mouth Every 6 hours Duration: 10 Days Printed Prescription Please take this list to your next doctor s visit. Bring all medications you take, including over the counter medications, herbals and other supplements with you to your doctor s visit. Patients and families are reminded to discard old lists and to update any records with all medication providers or retail pharmacies. Medication Leaflets dicloxacillin (dye klox a SASHA in) What is the most important information I should know about dicloxacillin? Follow all directions on your medicine label and package. Tell each of your healthcare providers about all your medical conditions, allergies, and all medicines you use. What is dicloxacillin? Dicloxacillin is a penicillin antibiotic that fights bacteria in your body. Dicloxacillin is used to treat many different types of infections caused by bacteria such as bronchitis, pneumonia, or staphylococcal (also called 'staph') infections. Dicloxacillin may also be used for purposes not listed in this medication guide. What should I discuss with my healthcare provider before taking dicloxacillin? You should not use this medicine if you are allergic to dicloxacillin or to any other penicillin antibiotic, such as: amoxicillin; ampicillin; carbenicillin; oxacillin; or penicillin. To make sure dicloxacillin is safe for you, tell your doctor if you have: asthma; a stomach illness (nausea, vomiting, digestive problems); liver disease; kidney disease; a bleeding or blood clotting disorder; a history of diarrhea caused by taking antibiotics; or a history of any type of allergy (especially cephalosporins such as Ceclor, Ceftin, Duricef, Keflex, and others). It is not known whether this medicine will harm an unborn baby. Tell your doctor if you are or plan to become . Dicloxacillin can make control pills less effective. Ask your doctor about using a non hormonal control (condom, diaphragm with spermicide) to prevent . Dicloxacillin can pass into breast milk and may harm a nursing baby. Tell your doctor if you are breast-feeding a baby. Do not give this medicine to a child without medical advice. How should I take dicloxacillin? Follow all directions on your prescription label. Do not take this medicine in larger or smaller amounts or for longer than recommended. Take dicloxacillin on an empty stomach, at least 1 hour before or 2 hours after a meal. Take this medicine with a full glass of water. To avoid heartburn or stomach irritation, do not take dicloxacillin while you are lying down or getting ready for bed. While using dicloxacillin, you may need frequent medical tests. This medicine can cause unusual results with certain medical tests. Tell any doctor who treats you that you are using dicloxacillin. Use this medicine for the full prescribed length of time. Your symptoms may improve before the infection is completely cleared. Skipping doses may also increase your risk of further infection that is resistant to antibiotics. Dicloxacillin will not treat a viral infection such as the flu or a common cold. Do not share this medicine with another person, even if they have the same symptoms you have. Store at room temperature away from moisture, heat, and light. What happens if I miss a dose? Take the missed dose as soon as you remember. Skip the missed dose if it is almost time for your next scheduled dose. Do not take extra medicine to make up the missed dose. What happens if I overdose? Seek emergency medical attention or call the Poison Help line at . What should I avoid while taking dicloxacillin? Antibiotic medicines can cause diarrhea, which may be a sign of a new infection. If you have diarrhea that is watery or bloody, call your doctor. Do not use anti-diarrhea medicine unless your doctor tells you to. What are the possible side effects of dicloxacillin? Get emergency medical help if you have signs of an allergic reaction: hives; difficult breathing; swelling of your face, lips, tongue, or throat. Call your doctor at once if you have: severe stomach pain, diarrhea that is watery or bloody; nausea, vomiting; little or no urination; unusual bleeding or bruising; a seizure (convulsions); mouth pain or irritation, black tongue, sore throat; or fever, swollen glands, rash or itching, joint pain, or general ill feeling. Common side effects may include: heartburn, nausea, vomiting, diarrhea; blisters or ulcers in your mouth, red or swollen gums, trouble swallowing; or abnormal liver function tests. This is not a complete list of side effects and others may occur. Call your doctor for medical advice about side effects. You may report side effects to FDA at 3-185-JWV-9598. What other drugs will affect dicloxacillin? Tell your doctor about all your current medicines and any you start or stop using, especially: probenecid; tetracycline; a blood thinner (warfarin, Coumadin, Jantoven); or any other antibiotic. This list is not complete. Other drugs may interact with dicloxacillin, including prescription and vigs-oab-miqayqy medicines, vitamins, and herbal products. Not all possible interactions are listed in this medication guide. Where can I get more information? Your pharmacist can provide more information about dicloxacillin. Remember, keep this and all other medicines out of the reach of children, never share your medicines with others, and use this medication only for the indication prescribed. Every effort has been made to ensure that the information provided by [employer]. ('[employer]') is accurate, up-to-date, and complete, but no guarantee is made to that effect. Drug information contained herein may be time sensitive. [employer] information has been compiled for use by healthcare practitioners and consumers in the [place] and therefore [employer] does not warrant that uses outside of the [place] are appropriate, unless specifically indicated otherwise. [employer] drug information does not endorse drugs, diagnose patients or recommend therapy. [employer] drug information is an informational resource designed to assist licensed healthcare practitioners in caring for their patients and/or to serve consumers viewing this service as a supplement to, and not a substitute for, the expertise, skill, knowledge and judgment of healthcare practitioners. The absence of a warning for a given drug or drug combination in no way should be construed to indicate that the drug or drug combination is safe, effective or appropriate for any given patient. [employer] does not assume any responsibility for any aspect of healthcare administered with the aid of information [employer] provides. The information contained herein is not intended to cover all possible uses, directions, precautions, warnings, drug interactions, allergic reactions, or adverse effects. If you have questions about the drugs you are taking, check with your doctor, nurse or pharmacist. Copyright 2812-3370 [employer]. Version: 7.01. Revision Date: 01/14/2023. Education Materials Mastitis Mastitis occurs when breast tissue becomes swollen and inflamed. This is almost always due to infection. Mastitis most often affects women during the first 6 weeks after childbirth. For this reason, it s also known as mastitis. Infection may happen after a duct becomes clogged, causing milk to back up in the breast. Mastitis may also occur if bacteria enter the breast through small cracks in the nipple. (Less often, mastitis occurs in women who aren t . If you have mastitis that is not due to , your healthcare provider will give you more information as needed. Treatment may include some of the same home care measures listed below.) Mastitis may cause flu-like symptoms such as fever, aches, and fatigue. The affected breast may feel painful, warm, tender, firm, or swollen. The skin over the breast may be red (often in a wedge-shaped pattern). You may feel a burning a sensation when . In most cases, mastitis can be treated with antibiotics. This should clear the infection. If treatment is delayed, a pocket of pus (abscess) can form in the breast tissue. A procedure may then be needed to drain the pus. In severe cases of infection, other treatments may be needed. Home care It s very important to keep the milk flowing from the infected breast. Continue from both breasts as usual. This will not hurt the baby. If this is too painful, use a breast pump to remove milk from the infected side. This can be fed to your baby or discarded. Note: If you don't continue to breastfeed or pump your breast, bacteria can grow in the milk that is left in your breast. This can make your infection worse. Tell your healthcare provider if you have problems with . He or she may suggest changes to your technique, if needed. You may also be referred to a nurse or risk management consultant for support with . General care Take any medicines you re prescribed as directed. If you re taking antibiotics, be sure to complete all of the medicine even if you start to feel better. Uiyq-wav-ptblkrr pain medicines may also be recommended. Don t use breast creams or other products or medicines without talking to your healthcare provider first. Note: If you re concerned about taking medicines while , talk to your healthcare provider. Rest as often as needed. Also be sure to drink plenty of fluids. To help relieve pain and swelling, heat or ice may be used. Apply as often as directed by your provider. oHeat: Place a warm compress on the breast. Use a towel soaked in hot water, a heating pad, or a hot water bottle. oCold: Place a cold compress on the breast. Use an ice pack or bag of ice wrapped in a thin towel. Never place a cold source directly on the skin. Follow-up care Follow up with your healthcare provider as advised. When to seek medical advice Call your healthcare provider right away if any of these occur: Fever of 100.4 F (38 C) or higher, or as directed by your provider Shaking chills Worsening symptoms or symptoms that don't improve within 48 to 72 hours of starting treatment New symptoms develop 8274-4293 [employer] [address] [place] [address]. All rights reserved. This information is not intended as a substitute for professional medical care. Always follow your healthcare professional's instructions. Additional Information VACCINATE! IT SAVES LIVES! Members of the community who have not yet received the COVID-19 vaccine and would like to receive it can visit one of [facility] vaccine clinics. There are many vaccine clinic locations within the [facility]. For locations and available times, please visit [email or web address] [email or web address] It is important to note that some COVID mobile vaccine clinics are held outdoors and may be canceled in rainy or stormy conditions. To learn more about pediatric vaccinations (ages 5-11), we invite you to visit the [facility] webpage. [email or web address]/p [email or web address]-Ekonl-Fycdjzxmhph-Freq [email or web address]-[email or web address].[email or web address] To learn more about the COVID-19 vaccine, we invite you to visit the CDC website for a list of frequently asked questions. https://www.cdc.gov/coronavirus/ 2019-ncov/vaccines/faq.html [facility] Access Instructions: Stay connected with your healthcare team and access your personal medical information anytime with the [facility] Portal. If you would like a full copy of your medical records please contact the [facility] Medical Records Department Wednesday through Wednesday between 8a.m. and 4:30p.m. Please follow the directions below to access the portal: 1.Access the email account you provided upon registration to the [facility].2.Look for an invitation email from [facility].3.Open the email and access the invitation link: Accept Invitation to [facility]4.Fill in the required [place] to create your account. Sign into www.[employer] with your username and password that you created in the above steps to stay up to date. You can then view a summary of results, a summary of your visits, and the ability to download your summaries to your computer or send the information securely to a physician. Remember that your healthcare information is confidential, so carefully consider who you will allow to register on the [employer] Patient Portal for access to your information. You can also access the [employer] Patient Portal on the [employer]. Simply click on Health Records under [employer] and then click on the [email or web address] logo. HOW TO SAFELY DISPOSE OF PRESCRIPTION MEDICATIONS Please use one of the following methods to safely dispose of your unused medications. 1.Use a drug disposal kit: the drug disposal pouch allows you to safely discard your old and unused drugs. Ask your nurse to give you one when you are discharged.2.Visit a local take-back location: Many local pharmacies and police departments have programs that collect old and unwanted prescription drugs. Call your local pharmacy or go to http://Nutraspace/2F8Nf8o to find one close to you.3.Make use of household items: Use cat litter or old coffee grounds to dispose medications if other options are not available. Mix your drugs with these household products, seal them in an airtight container and throw it into the garbage. Call [facility]: [phone] to be sure your drugs can be disposed of in this way. Some medicines may require a different approach.4.Never flush your medications down the toilet. IF YOU HAVE BEEN PRESCRIBED AN OPIOIDS FOR PAIN If you have been prescribed an opioid (such as hydrocodone, oxycodone or morphine), it is critical to understand the possible side effects and risks of opioid pain medications. Even when taken as directed, opioids can have several side effects including: Tolerance, meaning you might need to take more of a medication for the same pain relief. Nausea, vomiting and/or constipation. Sleepiness, dizziness, dry mouth, confusion, depression or itching. Physical dependence, meaning you have withdrawal symptoms when a medication is stopped ? this can develop within a few days. KNOW YOUR RESPONSIBILITIES It is important to know exactly how much and how often to take the opioid pain medications you are prescribed. Never take opioids in higher amounts or more often than prescribed. Do not combine opioids with alcohol or other drugs that cause drowsiness, such as benzodiazepines, also known as benzos, including diazepam and alprazolam, muscle relaxants or sleep aids. Never sell or share prescription opioids. This is illegal. Store opioids in a secure place and out of reach of others (including children, family, friends and visitors). The last page(s) of this document has been signed and retained as a CHART COPY Signatures Patient Education Materials Mastitis Medication Leaflets dicloxacillin My discharge plan and instructions have been reviewed and explained to me and I,SCHUYLERDEBEE Isauro understand my current condition and have read and understand these discharge instructions. I have received a written copy of the plan/instructions. If I have questions, I am aware that I should contact my doctor. Patient/Per Diem Physical Therapist Assistant Signature: Date/Time: Relationship to Patient: Witness Name/Signature: Date/Time: [facility] 07-17-2023 Note ORIGINAL EXAMINATION: SOFT TISSUE ULTRASOUND RIGHT BREAST 07/17/2023 1:23 pm COMPARISON: None. HISTORY: ORDERING SYSTEM PROVIDED HISTORY: Reason for Exam: Right breast pain, induration, edema FINDINGS: Real-time and Doppler evaluation of the entire right breast performed. There is no discrete solid or cystic lesion. No focal abscess or dilated ducts are appreciated. A normal appearance to the retro areolar complex. IMPRESSION: 1. No ultrasound evidence for right breast mass or phlegmon. 2. BI-RADS 1. 3. Return to screening mammography protocol. Interpreted by: David Chun DO Preliminary Report By: David Chun DO Electronically signed By David Chun DO Dictated Date: 07/17/2023 2:11:45 PM Prelim Date: 07/17/2023 2:14:54 PM Sign Date: 07/17/2023 2:14:54 PM Ordering Provider: [facility] 04-28-2023 History of Presen t illness Narrative Radiology Service Progress Note PATIENT NAME: Marbella Payan DATE OF SERVICE: April 28, 2023 TIME: 7:29 AM PATIENT IDENTITY VERIFICATION COMPLETED USING TWO (2) IDENTIFIERS: Name and Date of confirmed by patient verbally. FALL SCREENING: Has the patient had 2 falls in the last year or 1 fall with injury or currently using an Ambulatory Assistive Device (Walker, Cane, Wheelchair, Crutches, etc.)? No PATIENT GENDER DATA: Female. status: : No status: NO. PATIENT RELEVANT IMPLANT DATA REVIEWED: Not Applicable RADIOLOGY DEPARTMENT: Ultrasound PERIPHERAL IV DATA: Not applicable SIGNED BY: Sarahi Smith RDMS April 28, 2023 7:29 AM documented in this encounter [facility] 04-21-2023 Miscellaneous Notes I am happy to manage 02/16/2023 labs were in good range. The following approved medication requests have been transmitted electronically. Requested Prescriptions Pending Prescriptions Disp Refills levothyroxine 100 mcg cap 90 capsule 1 Sig: take 1 capsule by mouth once daily BEFORE BREAKFAST Ila Chen PA-C documented in this encounter [facility] 02-11-2023 Miscellaneous Notes The following approved medication requests have been transmitted electronically. Requested Prescriptions Signed Prescriptions Disp Refills LORazepam (ATIVAN) 0.5 mg 15 tablet 0 Sig: Take 1 tablet by mouth once daily as needed (anxiety) for up to 90 days. Ila Chen PA-C See [facility] message. Pt advised of need for appt. documented in this encounter [facility] 01-21-2023 Miscellaneous Notes Please escript Patient has been identified by name and date of : Yes Patient phones for refill(s): Requested Prescriptions Pending Prescriptions Disp Refills sertraline (ZOLOFT) 100 mg tablet 30 tablet 2 Sig: Take 1 tablet by mouth once daily. Date of last office visit in primary care: 12/17/2022 Please advise. Thank you. Nichole Hansen LPN documented in this encounter [facility] 01-20-2023 Miscellaneous Notes Patient last visit with PCP 12/17/22 Follow up appointment scheduled none Heena Bailey Ma documented in this encounter [facility] 01-13-2023 Miscellaneous Notes The following approved medication requests have been transmitted electronically. Requested Prescriptions Signed Prescriptions Disp Refills omalizumab (XOLAIR) 150 mg/mL syringe 2 Each 5 Sig: Inject 2 mL subcutaneously every 6 weeks. Authorizing Provider: ABHIJIT GARRETT MD [facility] 07-01-22 Patient phones requesting refills as follows: Requested Prescriptions Pending Prescriptions Disp Refills XOLAIR 150 mg/mL syringe [Pharmacy Med Name: XOLAIR SD PFS 150MG/ML] 2 Each 5 Sig: INJECT 2 SYRINGES UNDER THE SKIN EVERY 4 WEEKS Please review and advise. Cleo Cuadra RN documented in this encounter [facility] 01-13-2023 Miscellaneous Notes Recommend that she decrease the frequency of xolair injections to every 6 weeks for 3 doses and then to every 8 weeks. I would like to see her for a follow-up visit in 3-4 months Abhijit Garrett MD [facility] 07-01-22 Please see message. documented in this encounter [facility] 12-17-2022 History of Presen t illness Narrative 37 year old female with c/o med follow up: Stress reaction (primary encounter diagnosis) Adjustment reaction with anxiety and depression Current medications: Sertraline 100mg daily Mood is good. Feels better on higher dose, Was having some difficulty breathing. Divorce went through in July. 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 Yes. Thyroid pain: No. Mass effect: No. Change in energy level/ fatigue? No. Sleep disturbance ?No. Temperature Intolerance: cold No, hot No. In females, menstrual cycle issues? No, If yes: Change in bowel habits? No. If yes: Constipation? No. If yes: Diarrhea? No. If yes: Weight changes?mild increase. Memory issues: No. Diaphoresis: No. Numbness, tingling none Radiological imaging with contrast dyes within the last 3 months? No. History of radiation exposure to head or neck area? No. Change in hair or skin? No. If yes: Other symptoms: Last 2 Encounter Wt Readings: Date: Wt: 01/27/2022 75.8 kg (167 lb) 10/30/2020 81.2 kg (179 lb) Last thyroid labs: TSH Date Value 12/05/2021 1.610 mIU/L 01/10/2021 3.520 uU/mL 09/26/2020 1.110 uU/mL ) 02/10/2022 US thyroid diffusely nodular with multiple poorly defined nodules nodule 1: ROMANA pole, size: 0.4 x 0.7 x 1.2 cm (AP, transverse, CC), Solid or almost completely solid, hypoechoic, internal vascularity, no change in size. TR-4: Follow up imaging in 1, 2, 3 and 5 years is advised. 02/05/2021 FNA path: CONVERTED FINAL DIAGNOSIS A. THYROID, LEFT LOBE, FINE NEEDLE ASPIRATE (THINPREP AND CELL BLOCK) Benign. Lymphocytic thyroiditis. 02/08/2020 US thyroid demonstrates right lower 0.6 x 0.6 x 0.5 cm nodule TR 3, no further testing necessary; left isthmus 1.8 x 1.1 x 0.4 TR 4 nodule with recommendation for follow-up at 1, 3 and 5 years HISTORIES FAMILY HISTORY Problem Relation Age of Onset Cancer Mother Thyroid Cancer Thyroid Mother Thyroid Father PAST MEDICAL HISTORY Diagnosis Date Allergy Hypothyroid Thyroid nodule Urticaria PAST SURGICAL HISTORY Procedure Laterality Date BLEPHAROPLASTY EXTENSIVE Right 05.24.16 ML TOOTH EXTRACTION wisdom teeth Social History Tobacco Use Smoking status: Never Smokeless tobacco: Never Substance Use Topics Alcohol use: Yes Alcohol/week: 2.5 standard drinks Types: 1 Cans of Beer (12oz) per week Comment: socially Drug use: No ACTIVE PROBLEM LIST Hypothyroidism Due to Jeffrey's Thyroiditis Thyromegaly Thyroid Nodule History of ptosis repair Adjustment Reaction With Anxiety and Depression Chronic Idiopathic Urticaria Current Outpatient Medications Medication Sig Dispense Refill sertraline (ZOLOFT) 100 mg tablet Take 1 tablet by mouth once daily. 30 tablet 2 levothyroxine 100 mcg cap take 1 capsule by mouth once daily BEFORE BREAKFAST 90 capsule 0 scopolamine (TRANSDERM-SCOP) patch 1.5 mg/72 hr (delivers 1 mg over 3 days) Apply 1 Patch as directed every 72 hours. Apply patch to skin behind ear 4hrs prior to travel. 5 Patch 1 montelukast (SINGULAIR) 10 mg tablet Take 1 tablet by mouth daily at bedtime. 30 tablet 7 XOLAIR 150 mg/mL syringe INJECT 2 SYRINGES UNDER THE SKIN EVERY 4 WEEKS 2 Each 11 docosahexaenoic acid/epa (FISH OIL ORAL) Take by mouth once daily. hydrOXYzine HCl (ATARAX) 25 mg tablet Take 1-2 tablets by mouth every 6 hours as needed. For itching. 120 tablet 3 EPINEPHrine (EPIPEN 2-HALI) 0.3 mg/0.3 mL auto-injector Inject 0.3 mL intramuscularly as needed. For allergic reaction.Seek emergent medical care immediately after use.Disp:1 2-pakw/hardware trainer 1 Each 2 levocetirizine (XYZAL) 5 mg tablet Take 5 mg by mouth twice daily. diphenhydrAMINE (BENADRYL) 25 mg capsule Take 25 mg by mouth every 6 hours as needed. cholecalciferol, vitamin D3, (VITAMIN D3 ORAL) Take 5,000 Units by mouth once daily. Diltiazem 2% Ointment (rectal fissures) Apply to rectum 2-3 times daily and as needed. (TAKE TO [facility] TO FILL) 60 g 2 L-[place] and E Estradiol-E Estrad 0.15 mg-30 mcg (84)/10 mcg (7) Take 1 tablet by mouth once daily. meclizine 25 mg Tab Take 1 tablet by mouth every 6 hours as needed. FOR DIZZINESS 30 tablet 1 No current facility-administered medications for this visit. HEPATITIS B(1 of 3 - 3-dose series) Never done COVID-19 VACCINE(1) Never done HEPATITIS C SCREENING Never done HIV SCREENING Never done DTAP,TDAP,TD(1 - Tdap) Never done HPV TESTING due on 09/18/2019 PAP TESTING due on 10/27/2021 DEPRESSION ASSESSMENT Never done EXAM: BP 110/60 Pulse 80 Resp 16 Wt 83.5 kg (184 lb) LMP 01/20/2021 (Approximate) SpO2 96% BMI 29.70 kg/m Pleasant well appearing adult woman in no acute distress. Alert and oriented all spheres. Normal affect and cognition. Speech normal. No deficits to learning or comprehension. Skin warm, dry, pink to lips and nailbeds. Normal turgor. Respirations regular and unlabored. HEENT: NCAT. No scleral icterus or conjunctival injection. TM's clear. Nose and oropharynx free from injection or lesion. Oral membranes moist and pink. No cervical lymph nodes. Thyroid non-tender, small nodule palpable on left. Carotids pulses 2+/4+ without bruits. No JVD with HOB at 30 degrees. Extrem: no clubbing or cyanosis. Edema: none. Extremities are warm and pink with prompt capillary refill. ASSESSMENT/PLAN: 1. Stress reaction - ICD9: 308.9, ICD10: F43.0 (primary diagnosis) Controlled, doing much better, continue current medications 2. Adjustment reaction with anxiety and depression - ICD9: 309.28, ICD10: F43.23 As above - COMP METABOLIC PANEL 3. Chronic idiopathic urticaria - ICD9: 708.1, ICD10: L50.1 - follows with allergy, doing well with Xolair injections 4. Thyroid nodule - ICD9: 241.0, ICD10: E04.1 Due for follow up - US THYROID/PARATHYROID 5. Thyromegaly - ICD9: 240.9, ICD10: E01.0 - TSH BLD - T4 FREE/FREE THYROX - COMP METABOLIC PANEL 6. 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 - TSH BLD - T4 FREE/FREE THYROX - BASIC METABOLIC PNL If labs/ scans WNL f/u 1 year Ila Chen PA-C documented in this encounter [facility] 11-25-2022 Miscellaneous Notes Approved 11-25-22 until 11-25-23. Ref # [id number] [facility] 07-01-22. Initiated re-auth for Xolair 300 mg every 4 weeks via covermymeds. Will await determination. Current PA good through 12-23-22. Zuniga: KELLI CASTELLON documented in this encounter [facility] 10-22-2022 Miscellaneous Notes Duplicate request rx sent 10/12/22 for 90 days Pharmacy calls in requesting the following refill(s): Requested Prescriptions Pending Prescriptions Disp Refills levothyroxine 100 mcg cap [Pharmacy Med Name: LEVOTHYROXINE 100 MCG CAPSULE] 90 capsule 0 Sig: take 1 capsule by mouth once daily BEFORE BREAKFAST Encounter Routed to Staffing Provider in absence of Primary Contracting Specialist documented in this encounter [facility] 10-20-2022 Miscellaneous Notes Scheduled patient for med. F/U 11/30 @ 1 PM. Patient notified via [employer] message. Angela Melara MA No f/u scheduled. Please schedule for 3 months. The following approved medication requests have been transmitted electronically. Requested Prescriptions Signed Prescriptions Disp Refills sertraline (ZOLOFT) 100 mg tablet 30 tablet 2 Sig: Take 1 tablet by mouth once daily. Ila Chen PA-C documented in this encounter [facility] 07-16-2022 Miscellaneous Notes Patient informed via that Rx was called in. Advised to call back with any questions or concerns. Karishma Medina The following approved medication requests have been transmitted electronically. Requested Prescriptions Signed Prescriptions Disp Refills scopolamine (TRANSDERM-SCOP) patch 1.5 mg/72 hr (delivers 1 mg over 3 days) 5 Patch 1 Sig: Apply 1 Patch as directed every 72 hours. Apply patch to skin behind ear 4hrs prior to travel. Authorizing Provider: Ila CHEN PA-C documented in this encounter [facility] 06-19-2022 Note [facility] Pap Smear Specimen Adequacy June 19, 2022 9:08am Comment . Satisfactory for evaluation. Endocervical and/or squamous metaplasticcells (endocervical component) are present. Comment on above: Satisfactory for robel luation. Endocervical and/or squamous metaplasticcells (endocervical component) are present. 06-19-2022 Note [facility] Pap Smear Specimen Adequacy June 19, 2022 10:08am Comment . Satisfactory for evaluation. Endocervical and/or squamous metaplasticcells (endocervical component) are present. Comment on above: Satisfactory for robel luation. Endocervical and/or squamous metaplasticcells (endocervical component) are present. 06-19-2022 Note [facility] Pap Smear Specimen Adequacy June 19, 2022 10:08am Comment . Satisfactory for evaluation. Endocervical and/or squamous metaplasticcells (endocervical component) are present. Comment on above: Satisfactory for robel luation. Endocervical and/or squamous metaplasticcells (endocervical component) are present. 05-05-2022 Miscellaneous Notes Formattin g of this note might be different from the original. Pt scheduled for 07/01 at 1245. documented in this encounter [facility] 04-27-2022 Miscellaneous Notes Formattin g of this note is different from the original. Physician: Dr Garrett Call from patient requesting refill. Please E-Scribe Last OV: 12/11/[address] Garrett Future OV: 04/29/[address] Garrett Requested Prescriptions Pending Prescriptions Disp Refills montelukast (SINGULAIR) 10 mg tablet 30 tablet 7 Sig: Take 1 tablet by mouth daily at bedtime. Pharmacy Name: Edmund Ryan RN documented in this encounter [facility] 03-17-2022 Note HNO ID: [id number] Author: Treasure Escalona MD Service: ? Author Type: Physician Type: Progress Notes Filed: 03/17/2022 9:32 AM Note Text: Phone Visit I have discussed the nature of this visit with the patient which will occur via [facility] (Phone, Virtual Visit) and she agrees to proceed with this interaction. Time spent during this visit: 20 I spent a total of 20 minutes on the date of the service which included preparing to see the patient, [id number] patient care, completing clinical documentation, obtaining and/or reviewing separately obtained history, performing a medically appropriate examination and counseling and educating the patient/family/caregiver. Marbella Payan is a 37 year old year old female who presents today with a chief complaint of hypothyroidism. She was initially diagnosed with a thyroid disorder when she was 20yrs. Developed post thyroiditis and subsequently she needed thyroid medications. She had a hypoechoic region in the isthmus looks like a nodule, but never FNA as prior endo decided that this is part of the thyroid gland with different echo The patient underwent FNA of the left thyroid which returned as benign. The pt reports mild hypothyroidism at the time of diagnosis. Interim history: Has been feeling well. No new difficulty swallowing or breathing. Her most recent thyroid function tests ar normal. REVIEW OF SYSTEMS Constitutional: Negative for: Fever, Night sweats and Recent weight change Skin: Negative for: Rash ENT: Negative for: Hearing loss Eyes: Negative for: Visual disturbance Cardiovascul ar: Chest pain and Leg swelling Respiratory: Negative for: Cough and Difficulty breathing Gastrointestinal: nausea and diarrhea Musculoskeletal: Negative for: Arthralgias and Myalgias Neurological: Negative for: Headaches and Dizziness Genitourinary: Negative for: Difficulty urinating ASSESSMENT/PLAN: 1. Thyroid nodule - ICD9: 241.0, ICD10: E04.1 (primary diagnosis) No symptoms of compression No significant growth or need for repeat biopsy at this time. Follow up with ultrasound in 1 year. - US THYROID/PARATHYROID 2. 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 Clinically euthyroid. Continue levothyroxine at current dose. RTC 1 year Treasure Escalona MD Answers submitted by the patient for this visit: Core Review of Systems (Submitted on 03/17/2022) Nasal Congestion: No Irregular Heart Beat: No Awaken at Night More Than Once to Urinate?: No Leg or Foot Discomfort at Night?: No Memory Loss: No Seizures: No [facility] 03-17-2022 History of Presen t illness Narrative Phone Visit I have discussed the nature of this visit with the patient which will occur via [facility] (Phone, Virtual Visit) and she agrees to proceed with this interaction. Time spent during this visit: 20 I spent a total of 20 minutes on the date of the service which included preparing to see the patient, [id number] patient care, completing clinical documentation, obtaining and/or reviewing separately obtained history, performing a medically appropriate examination and counseling and educating the patient/family/caregiver. Marbella Payan is a 37 year old year old female who presents today with a chief complaint of hypothyroidism. She was initially diagnosed with a thyroid disorder when she was 20yrs. Developed post thyroiditis and subsequently she needed thyroid medications. She had a hypoechoic region in the isthmus looks like a nodule, but never FNA as prior endo decided that this is part of the thyroid gland with different echo The patient underwent FNA of the left thyroid which returned as benign. The pt reports mild hypothyroidism at the time of diagnosis. Interim history: Has been feeling well. No new difficulty swallowing or breathing. Her most recent thyroid function tests ar normal. REVIEW OF SYSTEMS Constitutional: Negative for: Fever, Night sweats and Recent weight change Skin: Negative for: Rash ENT: Negative for: Hearing loss Eyes: Negative for: Visual disturbance Cardiovascul ar: Chest pain and Leg swelling Respiratory: Negative for: Cough and Difficulty breathing Gastrointestinal: nausea and diarrhea Musculoskeletal: Negative for: Arthralgias and Myalgias Neurological: Negative for: Headaches and Dizziness Genitourinary: Negative for: Difficulty urinating ASSESSMENT/PLAN: 1. Thyroid nodule - ICD9: 241.0, ICD10: E04.1 (primary diagnosis) No symptoms of compression No significant growth or need for repeat biopsy at this time. Follow up with ultrasound in 1 year. - US THYROID/PARATHYROID 2. 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 Clinically euthyroid. Continue levothyroxine at current dose. RTC 1 year Treasure Escalona MD Answers submitted by the patient for this visit: Core Review of Systems (Submitted on 03/17/2022) Nasal Congestion: No Irregular Heart Beat: No Awaken at Night More Than Once to Urinate?: No Leg or Foot Discomfort at Night?: No Memory Loss: No Seizures: No documented in this encounter [facility] 03-10-2022 History of Presen t illness Narrative MyChart video visit was used for evaluation of this patient. Location of patient: [place] Patient was offered a virtual/telemedicine appointment in lieu of an office visit due to recommendations to reduce patient exposure to COVID-19. Patient is aware of limitations of performing the visit without a face to face visit in the office setting and agrees. 2:36 PM 37 year old female with c/o Stress reaction (primary encounter diagnosis) Adjustment reaction with anxiety and depression Current medications: Zoloft 50mg daily Doing a lot better: no issues breathing Ativan used twice but didn't really. 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 30 capsule 0 sertraline (ZOLOFT) 50 mg tablet Take 1 tablet by mouth once daily. 90 tablet 1 XOLAIR 150 mg/mL syringe INJECT 2 SYRINGES UNDER THE SKIN EVERY 4 WEEKS 2 Each 11 docosahexaenoic acid/epa (FISH OIL ORAL) Take by mouth once daily. levothyroxine 100 mcg cap take 1 capsule by mouth once daily BEFORE BREAKFAST 90 capsule 0 montelukast (SINGULAIR) 10 mg tablet take 1 tablet by mouth once daily at bedtime 30 tablet 7 hydrOXYzine HCl (ATARAX) 25 mg tablet Take 1-2 tablets by mouth every 6 hours as needed. For itching. 120 tablet 3 EPINEPHrine (EPIPEN 2-HALI) 0.3 mg/0.3 mL auto-injector Inject 0.3 mL intramuscularly as needed. For allergic reaction.Seek emergent medical care immediately after use.Disp:1 2-pakw/hardware trainer 1 Each 2 levocetirizine (XYZAL) 5 mg tablet Take 5 mg by mouth twice daily. diphenhydrAMINE (BENADRYL) 25 mg capsule Take 25 mg by mouth every 6 hours as needed. cholecalciferol, vitamin D3, (VITAMIN D3 ORAL) Take 5,000 Units by mouth once daily. Diltiazem 2% Ointment (rectal fissures) Apply to rectum 2-3 times daily and as needed. (TAKE TO [facility] TO FILL) 60 g 2 L-Norgest and E Estradiol-E Estrad 0.15 mg-30 mcg (84)/10 mcg (7) Take 1 tablet by mouth once daily. meclizine 25 mg Tab Take 1 tablet by mouth every 6 hours as needed. FOR DIZZINESS 30 tablet 1 No current facility-administered medications for this visit. HEPATITIS B(1 of 3 - 3-dose series) Never done COVID-19 VACCINE(1) Never done HEPATITIS C SCREENING Never done HIV SCREENING Never done DTAP,TDAP,TD(1 - Tdap) Never done HPV TESTING due on 09/18/2019 DEPRESSION ASSESSMENT Never done PAP TESTING due on 10/27/2021 INFLUENZA(1) due on 02/12/2022 EXAM: LMP 01/20/2021 (Approximate) Pleasant well appearing adult woman in no acute distress. Alert and oriented all spheres. Appearance: well dressed well groomed, cooperative and pleasant Behavior: good eye contact Speech: fluent and coherent Mood: euthymic Affect: appropriate Perceptions: none Thought process: goal directed Thought Content: normal Intelligence level: normal Insight: good Judgment: good Speaking in full sentences easily. Appears well hydrated. Lipd pink. Speaking easily, no respiratory labor. No obviously thyroid enlargment, non-tender on palpation per self. ASSESSMENT/PLAN: 1. Stress reaction - ICD9: 308.9, ICD10: F43.0 (primary diagnosis) 2. Adjustment reaction with anxiety and depression - ICD9: 309.28, ICD10: F43.23 Doing well Continue current dose and follow up in about 6 months on progress 3. Thyroid nodule - ICD9: 241.0, ICD10: E04.1 Reviewed thyroid US results from 02/10/22 and explained characteristics and risks. Low risk nodule but would follow as recommended. Ila Chen PA-C 2:53 PM See orders and/or patient instructions. Patient ( or Guardian) expressed understanding of instructions on review. Ila Chen PA-C documented in this encounter [facility] 02-22-2022 Miscellaneous Notes Formattin g of this note might be different from the original. Please notify patient she requires appointment and ultrasound results will be discussed then. Last appointment was January 2021. Thank you documented in this encounter [facility] 02-10-2022 History of Presen t illness Narrative Radiology Service Progress Note PATIENT NAME: Marbella Payan DATE OF SERVICE: February 10, 2022 TIME: 7:33 AM PATIENT IDENTITY VERIFICATION COMPLETED USING TWO (2) IDENTIFIERS: Name and Date of confirmed by patient verbally. FALL SCREENING: Has the patient had 2 falls in the last year or 1 fall with injury or currently using an Ambulatory Assistive Device (Walker, Cane, Wheelchair, Crutches, etc.)? No PATIENT GENDER DATA: Female. status: : No status: NO. PATIENT RELEVANT IMPLANT DATA REVIEWED: Not Applicable RADIOLOGY DEPARTMENT: Ultrasound PERIPHERAL IV DATA: Not applicable SIGNED BY: Trudy Maravilla RDMS RVT February 10, 2022 7:33 AM documented in this encounter [facility] 12-31-2021 Miscellaneous Notes Patient phones requesting refills as follows: Pending Prescriptions Disp Refills XOLAIR 150 MG/ML SUBCUTANEOUS SYRINGE 2 Each 11 Sig: INJECT 2 SYRINGES UNDER THE SKIN EVERY 4 WEEKS RICHELLE: Yes ASHELY 12/11/21 Please review and advise. Delmi Ortega RN documented in this encounter [facility] 12-23-2021 Miscellaneous Notes PA would not go through on covermymeds. Called insurance company at . Reference # [id number] xolair PA APPROVED 12-23-21 until 12-23-22 documented in this encounter [facility] 12-11-2021 Miscellaneous Notes Reminder created to re-authorize Xolair 12-23-21 (current auth expires 01-02). Pt scheduled for 12/11/21 at 4pm Vikihart message sent to pt to get her scheduled. Pt calling back to make appt You can leave a message or MyChart with an appt (if that would be easier) She is currently on vacation Asking for an appt closest to 4-430pm PA for xolair started by yamil on covermymeds as current one is expiring soon. Tried to complete PA, but states pt still has another refill according to records so will not send to plan. Zuniga [id number]. Pt needs follow up appt with Dr Garrett. Called pt and left VM telling her to call back about her xolair and to schedule appt. documented in this encounter [facility] 12-11-2021 Nurse Note Patient hives have been well controlled with current medication regimen. Xyzal to 5 mg twice daily, doxepin 25 mg at bedtime, hydroxyzine 25 to 50 mg every 6 hours as needed, Xolair 300 mg subcutaneously every 4 weeks, and Singulair 10 mg at bedtime. documented in this encounter [facility] 12-11-2021 History of Presen t illness Narrative VIRTUAL VISIT PROGRESS NOTE This is a virtual visit. It required patient-provider interaction for the medical decision making as documented below. Marbella Payan is a 36 year old female with a history of chronic spontaneous urticaria who presents for a follow-up visit. Her last visit was 12/24/20. Her symptoms have been well controlled since her last visit. She denies experiencing breakthrough urticaria or angioedema. Since her last visit, she has discontinued use of Pepcid, decreased Xyzal to 5 mg twice daily and decreased doxepin to 25 mg at bedtime. She continues Singulair 10 mg daily and Xolair 300 mg every 4 weeks. She denies side effects associated with use of these medications. She feels Singulair has helped decreased mild dependent edema of the ankles that patient had noted prior to developing urticaria. She complains of weight gain. She began treatment with Xolair 300 mg every 4 weeks on September 04, 2020 and has been tolerating this without adverse reaction. She has noted significant improvement in her urticaria since beginning treatment with xolair and doxepin. She complains of red itchy watery eyes for which she uses Visine AC as needed. Also with dry nares. (Discussed the possibility of transitioning to home administration of Xolair at a prior visit. 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 She does not have a history of anaphylaxis due to any cause. She does not have a history of latex allergy.) (From initial visit on 06/26/20 This is a consultation requested by RAVINDER Bolaños for an allergy and immunology evaluation. My final recommendations will be communicated back to the requesting healthcare provider(s) by way of shared medical record or via [place] mail. Marbella Payan is a 35 year old female who presents with a 2-month history of urticaria. She complains of generalized red raised and pruritic welts. Individual lesions are evanescent and resolve without residual bruising or hyperpigmentation. She also has experienced lip angioedema on 2 occasions. Denies involvement of the tongue or throat. After the onset of symptoms, Pristiq was prescribed to replace Effexor due to concern that the Effexor may be the cause of the hives. She had been taking Effexor for 1 year. The hives continued on Pristiq and have continued since discontinuing Pristiq 4 weeks ago. She was taking ibuprofen on almost a daily basis with possible worsening of symptoms until recently. She is also concerned that cows milk may be the cause of the urticaria. She complains of a history of bloating and loose stools associated with cows milk ingestion. Also notes thickened secretions/cough with cows milk ingestion. Symptoms are worse with exposure to hot temperatures. She took 1 course of Medrol with improvement and then recurrence of symptoms. She has been taking Zyrtec 10 mg daily, famotidine 20 mg twice daily and over the counter supplements including histablock with improvement but not resolution of symptoms. She denies concurrent symptoms including fevers, unintentional weight loss. She notes intermittent elbow pain bilaterally. She has a history of Jeffrey's thyroiditis. On laboratory evaluation completed on June 08, 2020, blood sugar was elevated at 138, otherwise, CMP, CBC with differential and platelets, TSH and ESR were normal. She also complains of sneezing, postnasal drip and itching and watery eyes. The symptoms are seasonal occurring in the spring and fall. Pollen exposure is a trigger of her symptoms. She typically takes Claritin or Zyrtec with fair relief of symptoms. Uses Visine allergy as needed with relief. She was previously on subcutaneous allergy immunotherapy as prescribed by [facility] for 1 year without significant improvement in her symptoms. Denies systemic reactions to immunotherapy. History of rosacea and seborrheic dermatitis REVIEW OF SYSTEMS: Negative for fevers, chills, night sweats and unintentional weight loss. Denies joint pain/joint swelling All other review of systems negative except for those listed above. PAST MEDICAL HISTORY Diagnosis Date Allergy Hypothyroid Thyroid nodule Urticaria MEDICATIONS: docosahexaenoic acid/epa (FISH OIL ORAL) Take by mouth once daily. levothyroxine 100 mcg cap Take 1 capsule by mouth daily before breakfast. levothyroxine 100 mcg cap take 1 capsule by mouth once daily BEFORE BREAKFAST montelukast (SINGULAIR) 10 mg tablet take 1 tablet by mouth once daily at bedtime doxepin capsule 25 mg Take 1-2 capsules by mouth daily at bedtime. cholecalciferol (VITAMIN D3) 1,000 unit tab tablet Vitamin D VITAMIN D TABS daily CHOLECALCIFEROL TABS [id number] Marli Olivera RN 07-20-2019 [facility] ([id number]) omalizumab (XOLAIR) 150 mg/mL Inject 2 mL subcutaneously every 4 weeks. hydrOXYzine HCl (ATARAX) 25 mg tablet Take 1-2 tablets by mouth every 6 hours as needed. For itching. EPINEPHrine (EPIPEN 2-HALI) 0.3 mg/0.3 mL auto-injector Inject 0.3 mL intramuscularly as needed. For allergic reaction.Seek emergent medical care immediately after use.Disp:1 2-pakw/hardware trainer levocetirizine (XYZAL) 5 mg tablet Take 5 mg by mouth twice daily. famotidine (PEPCID) 10 mg tablet Take 20 mg by mouth once daily. diphenhydrAMINE (BENADRYL) 25 mg capsule Take 25 mg by mouth every 6 hours as needed. TURMERIC ORAL Take by mouth once daily. Turmeric and phuc Lactobacillus acidophilus (PROBIOTIC ORAL) Take by mouth once daily. cholecalciferol, vitamin D3, (VITAMIN D3 ORAL) Take 5,000 Units by mouth once daily. COMPOUNDED PRESCRIPTION Apply to rectum 2-3 times daily and as needed. Diltiazem 2% Ointment (rectal fissures) Apply to rectum 2-3 times daily and as needed. (TAKE TO BRAIN RX TO FILL) L-Norgest and E Estradiol-E Estrad (CAMRESE) 0.15 mg-30 mcg (84)/10 mcg (7) 3MPk Take 1 tablet by mouth once daily. meclizine 25 mg Tab Take 1 tablet by mouth every 6 hours as needed. FOR DIZZINESS resveratrol-quercetin 100-100 mg tab Take 2 tablets by mouth once daily. predniSONE (DELTASONE) 10 mg tablet Take 4 tablets daily for 5 days, 3 tabs daily for 1 day, 2 tabs daily for 1 day and 1 tab daily for one day ALLERGIES: Allergies As of Date: 12/11/2021 Allergen Noted Reaction SEASONAL ALLERGIES 03/21/2013 Other: See Comments Fully Assessed 04/10/2021 PAST SURGICAL HISTORY Procedure Laterality Date BLEPHAROPLASTY EXTENSIVE Right 05.24.16 ML TOOTH EXTRACTION wisdom teeth FAMILY HISTORY: Allergic rhinitis:no. Asthma: no. Eczema: no. Cystic fibrosis: no. Immunodeficiency: no. 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 Pets in the home: 4 dogs- restricted from bedroom. Outdoor animals: There are no outdoor animals Tobacco smoke: No exposure in the home. 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 Continue hydroxyzine 25 to 50 mg every 6 hours as needed. Continue Xolair 300 mg subcutaneously every 4 weeks. Continue Singulair 10 mg at bedtime Nonspecific triggers or urticaria, including aspirin/NSAIDs were discussed with the patient at prior visits. Recommend that she continue to avoid use of aspirin/NSAID medications. (From November 26, 2020: Additional treatment options including dapsone and Plaquenil were discussed with the patient. She prefers to increase the dose or frequency of Xolair injections rather than beginning treatment with dapsone or Plaquenil due to concerns about potential side effects.) 2.) History of seasonal allergic rhinoconjunctivitis: Unable to complete allergy skin tests at her initial visit due to recent use of antihistamines. Aggressive environmental controls. Start [id number] Pataday extra strength as needed She may also use Nasacort 2 sprays to each nostril once daily. 3.) Discussed medication dosage, usage, side effects, and goals of treatment in detail. 4.) Follow-up in 4-6 mos- patient will return sooner should new symptoms or problems arise. Depending on clinical course, may consider decreasing the dose of Xolair to 150 mg every 4 weeks at that time. 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 11/13/2015 documented as of this encounter (statuses as of 12/02/2021) [facility] History of Past illness Narrative* Problem Noted Date Resolved Date 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 11/13/2015 documented as of this encounter (statuses as of 12/08/2021) [facility] History of Past illness Narrative* Problem Noted Date Resolved Date 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 11/13/2015 documented as of this encounter (statuses as of 12/11/2021) [address] History of Past illness Narrative* Problem Noted Date Resolved Date 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 11/13/2015 documented as of this encounter (statuses as of 12/12/2021) [address] History of Past illness Narrative* Problem Noted Date Resolved Date 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 11/13/2015 documented as of this encounter (statuses as of 12/23/2021) [address] History of Past illness Narrative* Problem Noted Date Resolved Date 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 11/13/2015 documented as of this encounter (statuses as of 12/31/2021) [address] History of Past illness Narrative* Problem Noted Date Resolved Date 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 11/13/2015 documented as of this encounter (statuses as of 02/11/2022) [place] [id number] History of Past illness Narrative* Problem Noted Date Resolved Date 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 11/13/2015 documented as of this encounter (statuses as of 02/22/2022) [address] History of Past illness Narrative* Problem Noted Date Resolved Date 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 11/13/2015 documented as of this encounter (statuses as of 03/04/2022) [address] History of Past illness Narrative* Problem Noted Date Resolved Date 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 11/13/2015 documented as of this encounter (statuses as of 03/10/2022) [address] History of Past illness Narrative* Problem Noted Date Resolved Date 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 11/13/2015 documented as of this encounter (statuses as of 03/17/2022) [address] History of Past illness Narrative* Problem Noted Date Resolved Date 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 11/13/2015 documented as of this encounter (statuses as of 04/27/2022) [place] [id number] History of Past illness Narrative* Problem Noted Date Resolved Date 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 11/13/2015 documented as of this encounter (statuses as of 05/05/2022) [address] History of Past illness Narrative* Problem Noted Date Resolved Date 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 11/13/2015 documented as of this encounter (statuses as of 07/16/2022) [address] History of Past illness Narrative* Problem Noted Date Resolved Date 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 11/13/2015 documented as of this encounter (statuses as of 10/13/2022) [address] History of Past illness Narrative* Problem Noted Date Resolved Date 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 11/13/2015 documented as of this encounter (statuses as of 10/20/2022) [address] History of Past illness Narrative* Problem Noted Date Resolved Date 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 11/13/2015 documented as of this encounter (statuses as of 10/22/2022) [address] History of Past illness Narrative* Problem Noted Date Resolved Date 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 11/13/2015 documented as of this encounter (statuses as of 11/26/2022) [address] History of Past illness Narrative* Problem Noted Date Resolved Date 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 11/13/2015 documented as of this encounter (statuses as of 12/18/2022) [address] History of Past illness Narrative* Problem Noted Date Diagnosed Date Resolved Date 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 11/13/2015 documented as of this encounter (statuses as of 01/13/2023) [address] History of Past illness Narrative* Problem Noted Date Diagnosed Date Resolved Date 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 11/13/2015 documented as of this encounter (statuses as of 01/14/2023) [address] History of Past illness Narrative* Problem Noted Date Diagnosed Date Resolved Date 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 11/13/2015 documented as of this encounter (statuses as of 01/21/2023) [address] History of Past illness Narrative* Problem Noted Date Diagnosed Date Resolved Date 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 11/13/2015 documented as of this encounter (statuses as of 01/22/2023) [address] History of Past illness Narrative* Problem Noted Date Diagnosed Date Resolved Date 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 11/13/2015 documented as of this encounter (statuses as of 02/11/2023) [address] History of Past illness Narrative* Problem Noted Date Diagnosed Date Resolved Date 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 11/13/2015 documented as of this encounter (statuses as of 04/12/2023) [address] History of Past illness Narrative* Problem Noted Date Diagnosed Date Resolved Date 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 11/13/2015 documented as of this encounter (statuses as of 04/22/2023) [address] History of Past illness Narrative* Problem Noted Date Diagnosed Date Resolved Date 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 11/13/2015 documented as of this encounter (statuses as of 04/29/2023) [address] History of Past illness Narrative* Problem Noted Date Diagnosed Date Resolved Date 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 11/13/2015 documented as of this encounter (statuses as of 07/28/2023) [address] History of Past illness Narrative* Problem Noted Date Diagnosed Date Resolved Date 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 11/13/2015 documented as of this encounter (statuses as of 07/29/2023) [address] History of Past illness Narrative* Problem Noted Date Diagnosed Date Resolved Date 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 11/13/2015 documented as of this encounter (statuses as of 08/11/2023) [address] History of Past illness Narrative* Problem Noted Date Diagnosed Date Resolved Date 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 11/13/2015 documented as of this encounter (statuses as of 09/03/2023) [address] History of Past illness Narrative* Problem Noted Date Diagnosed Date Resolved Date 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 11/13/2015 documented as of this encounter (statuses as of 09/22/2023) [address] History of Past illness Narrative* Problem Noted Date Diagnosed Date Resolved Date 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 11/13/2015 documented as of this encounter (statuses as of 09/23/2023) [address] History of Past illness Narrative* Problem Noted Date Diagnosed Date Resolved Date 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 11/13/2015 documented as of this encounter (statuses as of 09/23/2023) [address] History of Past illness Narrative* Problem Noted Date Diagnosed Date Resolved Date 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 11/13/2015 documented as of this encounter (statuses as of 09/24/2023) [address] History of Past illness Narrative* Problem Noted Date Diagnosed Date Resolved Date 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 11/13/2015 documented as of this encounter (statuses as of 09/27/2023) [facility] + Plan note No data available for this section [facility] Evaluation note* 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 [facility] [place] [facility] 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 [facility] [place] [facility]* Diagnosis Thyroid nodule- Primary Nontoxic uninodular goiter [facility] [place] [facility]* Diagnosis Thyroid nodule- Primary Nontoxic uninodular goiter [facility] [place] [facility] Diagnosis Chronic idiopathic urticaria- Primary Idiopathic urticaria Allergic rhinitis, unspecified seasonality, unspecified trigger [facility] [place] [facility]* Diagnosis Thyroid nodule Nontoxic uninodular goiter [facility] [place] [facility]* Diagnosis Stress reaction Unspecified acute reaction to stress [facility] [place] [facility]* Diagnosis Stress reaction- Primary Unspecified acute reaction to stress Adjustment reaction with anxiety and depression Adjustment disorder with mixed anxiety and depressed mood Thyroid nodule Nontoxic uninodular goiter documented in this encounter [facility] note* Diagnosis Hypothyroidism, unspecified type- Primary 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 documented in this encounter [facility] noteNo assessment information availableWMiami [facility] Work Phone: Evaluation note* Diagnosis Motion sickness, subsequent encounter- Primary documented in this encounter [facility] note* 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 documented in this encounter [facility] note* 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 documented in this encounter [facility] note* Diagnosis Stress reaction- Primary Unspecified acute reaction to stress Adjustment reaction with anxiety and depression Adjustment disorder with mixed anxiety and depressed mood Chronic idiopathic urticaria Idiopathic urticaria Thyroid nodule Nontoxic uninodular goiter Thyromegaly Goiter, unspecified 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 documented in this encounter [facility] note* Diagnosis Stress reaction Unspecified acute reaction to stress [facility] [place] [facility]* Diagnosis Encounter for screening mammogram for breast cancer documented in this encounter [facility] note* 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 documented in this encounter [facility] note* Diagnosis Thyroid nodule Nontoxic uninodular goiter [facility] [place] [facility]* Diagnosis Urinary tract infection without hematuria, site unspecified- Primary Dysuria documented in this encounter [facility] note* Diagnosis Encounter for gynecological examination (general) (routine) without abnormal findings- Primary Encounter for screening for human papillomavirus (HPV) Special screening examination for human papillomavirus (HPV) Screening for malignant neoplasm of cervix Screening for malignant neoplasm of the cervix Screen for STD (sexually transmitted disease) Screening examination for venereal disease Vulvar lesion Other specified noninflammatory disorder of vulva and perineum documented in this encounter [facility] note* 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 [facility] [place] [facility]* 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 documented in this encounter [facility] note* Diagnosis Adjustment reaction with anxiety and depression- Primary Adjustment disorder with mixed anxiety and depressed mood 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 Screening for diabetes mellitus Screening for lipid disorders documented in this encounter [facility] note* 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 documented in this encounter [facility] note* Diagnosis Seasonal allergic rhinitis, unspecified trigger- Primary Adjustment reaction with anxiety and depression Adjustment disorder with mixed anxiety and depressed mood documented in this encounter [facility] note* Diagnosis Encounter for screening mammogram for breast cancer documented in this encounter [facility] note* Diagnosis Weight loss- Primary Loss of weight Adjustment reaction with anxiety and depression Adjustment disorder with mixed anxiety and depressed mood documented in this encounter [facility] note* Diagnosis Encounter for screening mammogram for breast cancer [facility] [place] [facility]* Diagnosis Thyroid nodule, uninodular Nontoxic uninodular goiter documented in this encounter [facility] note* Diagnosis Multiple thyroid nodules- Primary Nontoxic multinodular goiter documented in this encounter [facility] note* Diagnosis Adjustment reaction with anxiety and depression Adjustment disorder with mixed anxiety and depressed mood documented in this encounter [facility] note* Diagnosis Seasonal allergic rhinitis, unspecified trigger Weight loss Loss of weight documented in this encounter [facility] note* Diagnosis Encounter for gynecological examination (general) (routine) without abnormal findings- Primary Encounter for screening mammogram for breast cancer Screening for cervical cancer Screening for malignant neoplasm of the cervix Special screening examination for human papillomavirus (HPV) Encounter for surveillance of contraceptive pills Surveillance of previously prescribed contraceptive pill documented in this encounter [facility] note* Diagnosis Allergic reaction, sequela- Primary documented in this encounter [facility] note* 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 documented in this encounter [facility] for referral (narrative)* Diagnostic Procedure Only (Routine) - Pending Review Specialty Diagnoses / Procedures Referred By Milagros doll Referred To Contact US IMAGING Diagnoses Thyroid nodule Procedures US THYROID/PARATHYROID US SOFT TISSUE HEAD & NECK REAL TIME IMGE DOCTreasure Hoyos MD [address], [address] [place] [address] Us Imaging Referral ID Status Reason Start Date Expiration Date Visits Requested Visits Authorized [id number] Pending Review Auto-Generat ed Referral 12/08/2021 01/07/2023 1 1 [facility] for referral (narrative)* Diagnostic Procedure Only (Routine) - Closed Specialty Diagnoses / Procedures Referred By Deonteac t Referred To Contact US IMAGING Diagnoses Thyroid nodule Procedures US THYROID/PARATHYROID US SOFT TISSUE HEAD & NECK REAL TIME IMGE Treasure Gaines MD [address] [place] [address], [address] [place] [address] Us Imaging Referral ID Status Reason Start Date Expiration Date V isits Requested Visits Authorized [id number] Closed Auto-Generate d Referral 12/08/2021 01/07/2023 1 1 [facility] for referral (narrative)* Diagnostic Procedure Only (Routine) - Authorized Specialty Diagnoses / Procedures Referred By Milagros t Referred To Contact US IMAGING Diagnoses Thyroid nodule Procedures US THYROID/PARATHYROID US SOFT TISSUE HEAD & NECK REAL TIME IMGE Ila Stein PA-C [address] [place] [address] Us Imaging Referral ID Status Reason Start Date Expiration Date Visits Requested Visits Authorized [id number] Authorized Auto-Generat ed Referral 12/17/2022 01/16/2024 1 1 [facility] for referral (narrative)* Diagnostic Procedure Only (Routine) - Pending Review Specialty Diagnoses / Procedures Referred By Milagros t Referred To Contact [facility] IMAGING Diagnoses Encounter for screening mammogram for breast cancer Procedures GLORY SCREENING SCREENING MAMMOGRAPHY BI 2-VIEW BREAST INC CAD Ila Chen PA-C [address] [place] [address] [facility] [address] [place] [address] Referral ID Status Reason Start Date Expiration Date Visits Requested Visits Authorized [id number] Pending Review Auto-Generat ed Referral 3 05/06/2024 1 1 [facility] for referral (narrative)* Diagnostic Procedure Only (Routine) - Closed Specialty Diagnoses / Procedures Referred By Contac t Referred To Contact US IMAGING Diagnoses Thyroid nodule Procedures US THYROID/PARATHYROID US SOFT TISSUE HEAD & NECK REAL TIME IMGE Ila Stein PA-C [address] [place] [address] [place] [address] Referral ID Status Reason Start Date Expiration Date V isits Requested Visits Authorized [id number] Closed Auto-Generate d Referral 12/17/2022 01/16/2024 1 1 [facility] for referral (narrative)* Diagnostic Procedure Only (Routine) - Authorized Specialty Diagnoses / Procedures Referred By Milagros doll Referred To Contact BR IMAGING Diagnoses Encounter for screening mammogram for breast cancer Procedures GLORY SCREENING W VIDHI SCREENING DIGITAL BREAST TOMOSYNTHESIS BI SCREENING MAMMOGRAPHY BI 2-VIEW BREAST INC Ila Nieves PA-C [address] [place] [address] [facility] [address] [place] [address] Referral ID Status Reason Start Date Expiration Date Visits Requested Visits Authorized [id number] Authorized Auto-Generat ed Referral 03/15/2024 04/14/2025 1 1 [facility] for referral (narrative)* Diagnostic Procedure Only (Routine) - Closed Specialty Diagnoses / Procedures Referred By Milagros t Referred To Contact BR IMAGING Diagnoses Encounter for screening mammogram for breast cancer Procedures GLORY SCREENING W VIDHI SCREENING DIGITAL BREAST TOMOSYNTHESIS BI SCREENING MAMMOGRAPHY BI 2-VIEW BREAST INC Ila Nieves PA-C [address] [place] [address] [facility] [address] [place] [address] Referral ID Status Reason Start Date Expiration Date V isits Requested Visits Authorized [id number] Closed Auto-Generate d Referral 03/15/2024 04/14/2025 1 1 [facility] for referral (narrative)* Diagnostic Procedure Only (Routine) - New Request Specialty Diagnoses / Procedures Referred By Milagros doll Referred To Contact US IMAGING Diagnoses Multiple thyroid nodules Procedures US THYROID/PARATHYROID US SOFT TISSUE HEAD & NECK REAL TIME IMGE DOCNichole Ng, C++ PROFESSOR.PATTERN [employer]UM MAKER [address] [place] [address] [place] [address] Referral ID Status Reason Start Date Expiration Date Visits Requested Visits Authorized [id number] New Request Auto-Generat ed Referral 06/01/2025 1 1 [facility] for visit Narrative* Diagnostic Procedure Only (Routine) - Closed Specialty Diagnoses / Procedures Referred By Milagros doll Referred To Contact BR IMAGING Diagnoses Encounter for screening mammogram for breast cancer Procedures GLORY SCREENING W VIDHI SCREENING DIGITAL BREAST TOMOSYNTHESIS BI SCREENING MAMMOGRAPHY BI 2-VIEW BREAST INC CAD Ila Chen PA-C [address] [place] [address] [facility] [address] [place] [address] Referral ID Status Reason Start Date Expiration Date V isits Requested Visits Authorized [id number] Closed Auto-Generate d Referral 03/15/2024 04/14/2025 1 1 [facility] Chief Complaint Chief Complaint Description Start Date right ankle pain Preliminary chief co mplaint data, not yet signed by the author as of Instructions Instruction Description Start Date CompletedPatient advised to follow-up with Primary Care Physician for BMI management. Advance Directives No Advanced Directives Records FoundDocuments on File Type Date Recorded Patient Per Diem Physical Therapist Assistant Expl anation Advance Directive(s) 01/29/2021 4:03 PM Advance Directive(s) 11/05/2015 8:35 AM Documents on File Type Date Recorded Patient Per Diem Physical Therapist Assistant Expl anation Advance Directive(s) 01/29/2021 4:03 PM Advance Directive(s) 11/05/2015 8:35 AM Assessments There may be information available, but it has not been provided by the sender. Review of System There may be information available, but it has not been provided by the sender. Family History There may be information available, but it has not been provided by the sender.No Family History Records FoundNo Family History Records Found No data available for this section No Family History Records FoundNo Family History Records Found History of Present Illness There may be information available, but it has not been provided by the sender. Summary Purpose Chief Complaint and Reason for Visit Chief Complaint UNSPECIFIED LUMP IN UNSPECIFIED BREAST Additional Source Comments Reason for Visit (unrecogniz ed section and content) Reason For Visit Description New - 1st visit with practice Preliminary reason f or visit data, not yet signed by the author as of right ankle pain Reason Onset Date Comments Refill Request 11/12/2021 Reason Comments Refill Request Reason Comments Results Reason Comments Returning Patient's Call Orders Reason Comments xolair PA Reason Comments Established Patient urticaria f/u Reason Comments Radiology US Specialty Diagnoses / Procedures Referred By Contac t Referred To Contact US IMAGING Diagnoses Thyroid nodule Procedures US THYROID/PARATHYROID US SOFT TISSUE HEAD & NECK REAL TIME IMGE Treasure Gaines MD [address], [facility] [address] [place] [address] Us Imaging Referral ID Status Reason Start Date Expiration Date V isits Requested Visits Authorized [id number] Closed Auto-Generate d Referral 12/08/2021 01/07/2023 1 1 Reason Comments Appointment Reason Onset Date Comments Refill Request 03/04/2022 Reason Comments Anxiety Reason Comments Thyroid Problem Thyroid Nodule Reason Onset Date Comments Refill Request 04/24/2022 Reason Comments Medication Request Reason Comments Xolair Re-auth Reason Onset Date Comments Refill Request 01/20/2023 Reason Onset Date Comments Refill Request 01/21/2023 Specialty Diagnoses / Procedures Referred By Contac t Referred To Contact US IMAGING Diagnoses Thyroid nodule Procedures US THYROID/PARATHYROID US SOFT TISSUE HEAD & NECK REAL TIME IMGE Ila Stein PA-C [address] [place] [address] [place] [address] Referral ID Status Reason Start Date Expiration Date V isits Requested Visits Authorized [id number] Closed Auto-Generate d Referral 12/17/2022 01/16/2024 1 1 Reason Onset Date Comments Refill Request 07/27/2023 Reason Comments Urinary Problem Burning and frequenc y x4 days Reason Comments Medication Problem Reason Comments Results Reason Comments Well Woman Reason Onset Date Comments Refill Request 10/29/2023 Reason Onset Date Comments Refill Request 11/26/2023 Reason Comments Yearly Exam Reason Onset Date Comments Refill Request 02/07/2024 Reason Comments Radiology US Specialty Diagnoses / Procedures Referred By Contac t Referred To Contact US IMAGING Diagnoses Thyroid nodule, uninodular Procedures US THYROID/PARATHYROID US SOFT TISSUE HEAD & NECK REAL TIME IMGE Nichole Ortiz, C++ PROFESSOR.PATTERN [employer]UM MAKER [address] [place] [address] Us Imaging [place] [address] Referral ID Status Reason Start Date Expiration Date V isits Requested Visits Authorized [id number] Closed Auto-Generate d Referral 03/07/2024 04/06/2025 1 1 Reason Onset Date Comments Refill Request 05/08/2024 Reason Onset Date Comments Refill Request 06/19/2024 Reason Comments Well Woman Reason Onset Date Comments Refill Request 12/02/2024 Reason Onset Date Comments Refill Request 01/24/2025 INFORMATION SOURCE (unrecogn ized section and content) DATE CREATED AUTHOR 02/08/2021 [facility] DATE CREATED AUTHOR AUTHOR'S ORGANIZ ATION 03/18/2022 [facility] DATE CREATED AUTHOR AUTHOR'S ORGANIZ ATION 12/24/2024 [facility] DATE CREATED AUTHOR AUTHOR'S ORGANIZ ATION 04/15/2025 [facility] Source Comments (unrecognize d section and content) In the event this informatio n is protected by the Federal Confidentiality of Alcohol and Drug Abuse Patient Records regulations: The Federal rules restrict any use of the information to criminally investigate or prosecute any alcohol or drug abuse patient.[facility] the event this information is protected by the Federal Confidentiality of Alcohol and Drug Abuse Patient Records regulations: The Federal rules restrict any use of the information to criminally investigate or prosecute any alcohol or drug abuse patient.[facility] the event this information is protected by the Federal Confidentiality of Alcohol and Drug Abuse Patient Records regulations: The Federal rules restrict any use of the information to criminally investigate or prosecute any alcohol or drug abuse patient.[facility] the event this information is protected by the Federal Confidentiality of Alcohol and Drug Abuse Patient Records regulations: The Federal rules restrict any use of the information to criminally investigate or prosecute any alcohol or drug abuse patient.[facility] the event this information is protected by the Federal Confidentiality of Alcohol and Drug Abuse Patient Records regulations: The Federal rules restrict any use of the information to criminally investigate or prosecute any alcohol or drug abuse patient.[facility] the event this information is protected by the Federal Confidentiality of Alcohol and Drug Abuse Patient Records regulations: The Federal rules restrict any use of the information to criminally investigate or prosecute any alcohol or drug abuse patient.[facility] the event this information is protected by the Federal Confidentiality of Alcohol and Drug Abuse Patient Records regulations: The Federal rules restrict any use of the information to criminally investigate or prosecute any alcohol or drug abuse patient.[facility] the event this information is protected by the Federal Confidentiality of Alcohol and Drug Abuse Patient Records regulations: The Federal rules restrict any use of the information to criminally investigate or prosecute any alcohol or drug abuse patient.[facility] the event this information is protected by the Federal Confidentiality of Alcohol and Drug Abuse Patient Records regulations: The Federal rules restrict any use of the information to criminally investigate or prosecute any alcohol or drug abuse patient.[facility] the event this information is protected by the Federal Confidentiality of Alcohol and Drug Abuse Patient Records regulations: The Federal rules restrict any use of the information to criminally investigate or prosecute any alcohol or drug abuse patient.[facility] HospitalIn the event this information is protected by the Federal Confidentiality of Alcohol and Drug Abuse Patient Records regulations: The Federal rules restrict any use of the information to criminally investigate or prosecute any alcohol or drug abuse patient.[facility] Hospital[facility] the event this information is protected by the Federal Confidentiality of Alcohol and Drug Abuse Patient Records regulations: The Federal rules restrict any use of the information to criminally investigate or prosecute any alcohol or drug abuse patient.[facility] HospitalIn the event this information is protected by the Federal Confidentiality of Alcohol and Drug Abuse Patient Records regulations: The Federal rules restrict any use of the information to criminally investigate or prosecute any alcohol or drug abuse patient.[facility] Hospital[facility] the event this information is protected by the Federal Confidentiality of Alcohol and Drug Abuse Patient Records regulations: The Federal rules restrict any use of the information to criminally investigate or prosecute any alcohol or drug abuse patient.[facility] Hospital[facility] the event this information is protected by the Federal Confidentiality of Alcohol and Drug Abuse Patient Records regulations: The Federal rules restrict any use of the information to criminally investigate or prosecute any alcohol or drug abuse patient.[facility] HospitalIn the event this information is protected by the Federal Confidentiality of Alcohol and Drug Abuse Patient Records regulations: The Federal rules restrict any use of the information to criminally investigate or prosecute any alcohol or drug abuse patient.[facility] Hospital[facility] the event this information is protected by the Federal Confidentiality of Alcohol and Drug Abuse Patient Records regulations: The Federal rules restrict any use of the information to criminally investigate or prosecute any alcohol or drug abuse patient.[facility] Hospital[facility] the event this information is protected by the Federal Confidentiality of Alcohol and Drug Abuse Patient Records regulations: The Federal rules restrict any use of the information to criminally investigate or prosecute any alcohol or drug abuse patient.[facility] HospitalIn the event this information is protected by the Federal Confidentiality of Alcohol and Drug Abuse Patient Records regulations: The Federal rules restrict any use of the information to criminally investigate or prosecute any alcohol or drug abuse patient.[facility] HospitalIn the event this information is protected by the Federal Confidentiality of Alcohol and Drug Abuse Patient Records regulations: The Federal rules restrict any use of the information to criminally investigate or prosecute any alcohol or drug abuse patient.[facility] HospitalIn the event this information is protected by the Federal Confidentiality of Alcohol and Drug Abuse Patient Records regulations: The Federal rules restrict any use of the information to criminally investigate or prosecute any alcohol or drug abuse patient.[facility] HospitalIn the event this information is protected by the Federal Confidentiality of Alcohol and Drug Abuse Patient Records regulations: The Federal rules restrict any use of the information to criminally investigate or prosecute any alcohol or drug abuse patient.[facility] HospitalIn the event this information is protected by the Federal Confidentiality of Alcohol and Drug Abuse Patient Records regulations: The Federal rules restrict any use of the information to criminally investigate or prosecute any alcohol or drug abuse patient.[facility] HospitalIn the event this information is protected by the Federal Confidentiality of Alcohol and Drug Abuse Patient Records regulations: The Federal rules restrict any use of the information to criminally investigate or prosecute any alcohol or drug abuse patient.[facility] HospitalIn the event this information is protected by the Federal Confidentiality of Alcohol and Drug Abuse Patient Records regulations: The Federal rules restrict any use of the information to criminally investigate or prosecute any alcohol or drug abuse patient.[facility] HospitalIn the event this information is protected by the Federal Confidentiality of Alcohol and Drug Abuse Patient Records regulations: The Federal rules restrict any use of the information to criminally investigate or prosecute any alcohol or drug abuse patient.[facility] HospitalIn the event this information is protected by the Federal Confidentiality of Alcohol and Drug Abuse Patient Records regulations: The Federal rules restrict any use of the information to criminally investigate or prosecute any alcohol or drug abuse patient.[facility] HospitalIn the event this information is protected by the Federal Confidentiality of Alcohol and Drug Abuse Patient Records regulations: The Federal rules restrict any use of the information to criminally investigate or prosecute any alcohol or drug abuse patient.[facility] HospitalIn the event this information is protected by the Federal Confidentiality of Alcohol and Drug Abuse Patient Records regulations: The Federal rules restrict any use of the information to criminally investigate or prosecute any alcohol or drug abuse patient.[facility] HospitalIn the event this information is protected by the Federal Confidentiality of Alcohol and Drug Abuse Patient Records regulations: The Federal rules restrict any use of the information to criminally investigate or prosecute any alcohol or drug abuse patient.[facility] HospitalIn the event this information is protected by the Federal Confidentiality of Alcohol and Drug Abuse Patient Records regulations: The Federal rules restrict any use of the information to criminally investigate or prosecute any alcohol or drug abuse patient.[facility] HospitalIn the event this information is protected by the Federal Confidentiality of Alcohol and Drug Abuse Patient Records regulations: The Federal rules restrict any use of the information to criminally investigate or prosecute any alcohol or drug abuse patient.[facility] HospitalIn the event this information is protected by the Federal Confidentiality of Alcohol and Drug Abuse Patient Records regulations: The Federal rules restrict any use of the information to criminally investigate or prosecute any alcohol or drug abuse patient.[facility] HospitalIn the event this information is protected by the Federal Confidentiality of Alcohol and Drug Abuse Patient Records regulations: The Federal rules restrict any use of the information to criminally investigate or prosecute any alcohol or drug abuse patient.[facility] HospitalIn the event this information is protected by the Federal Confidentiality of Alcohol and Drug Abuse Patient Records regulations: The Federal rules restrict any use of the information to criminally investigate or prosecute any alcohol or drug abuse patient.[facility] HospitalIn the event this information is protected by the Federal Confidentiality of Alcohol and Drug Abuse Patient Records regulations: The Federal rules restrict any use of the information to criminally investigate or prosecute any alcohol or drug abuse patient.[facility] HospitalIn the event this information is protected by the Federal Confidentiality of Alcohol and Drug Abuse Patient Records regulations: The Federal rules restrict any use of the information to criminally investigate or prosecute any alcohol or drug abuse patient.[facility] HospitalIn the event this information is protected by the Federal Confidentiality of Alcohol and Drug Abuse Patient Records regulations: The Federal rules restrict any use of the information to criminally investigate or prosecute any alcohol or drug abuse patient.[facility] HospitalIn the event this information is protected by the Federal Confidentiality of Alcohol and Drug Abuse Patient Records regulations: The Federal rules restrict any use of the information to criminally investigate or prosecute any alcohol or drug abuse patient.[facility] HospitalIn the event this information is protected by the Federal Confidentiality of Alcohol and Drug Abuse Patient Records regulations: The Federal rules restrict any use of the information to criminally investigate or prosecute any alcohol or drug abuse patient.[facility] HospitalIn the event this information is protected by the Federal Confidentiality of Alcohol and Drug Abuse Patient Records regulations: The Federal rules restrict any use of the information to criminally investigate or prosecute any alcohol or drug abuse patient.[facility] HospitalIn the event this information is protected by the Federal Confidentiality of Alcohol and Drug Abuse Patient Records regulations: The Federal rules restrict any use of the information to criminally investigate or prosecute any alcohol or drug abuse patient.[facility] HospitalIn the event this information is protected by the Federal Confidentiality of Alcohol and Drug Abuse Patient Records regulations: The Federal rules restrict any use of the information to criminally investigate or prosecute any alcohol or drug abuse patient.[facility] HospitalIn the event this information is protected by the Federal Confidentiality of Alcohol and Drug Abuse Patient Records regulations: The Federal rules restrict any use of the information to criminally investigate or prosecute any alcohol or drug abuse patient.[facility] HospitalIn the event this information is protected by the Federal Confidentiality of Alcohol and Drug Abuse Patient Records regulations: The Federal rules restrict any use of the information to criminally investigate or prosecute any alcohol or drug abuse patient.[facility] HospitalIn the event this information is protected by the Federal Confidentiality of Alcohol and Drug Abuse Patient Records regulations: The Federal rules restrict any use of the information to criminally investigate or prosecute any alcohol or drug abuse patient.[facility] HospitalIn the event this information is protected by the Federal Confidentiality of Alcohol and Drug Abuse Patient Records regulations: The Federal rules restrict any use of the information to criminally investigate or prosecute any alcohol or drug abuse patient.[facility] HospitalIn the event this information is protected by the Federal Confidentiality of Alcohol and Drug Abuse Patient Records regulations: The Federal rules restrict any use of the information to criminally investigate or prosecute any alcohol or drug abuse patient.[facility] HospitalIn the event this information is protected by the Federal Confidentiality of Alcohol and Drug Abuse Patient Records regulations: The Federal rules restrict any use of the information to criminally investigate or prosecute any alcohol or drug abuse patient.[facility] HospitalIn the event this information is protected by the Federal Confidentiality of Alcohol and Drug Abuse Patient Records regulations: The Federal rules restrict any use of the information to criminally investigate or prosecute any alcohol or drug abuse patient.[facility] HospitalIn the event this information is protected by the Federal Confidentiality of Alcohol and Drug Abuse Patient Records regulations: The Federal rules restrict any use of the information to criminally investigate or prosecute any alcohol or drug abuse patient.[facility] HospitalIn the event this information is protected by the Federal Confidentiality of Alcohol and Drug Abuse Patient Records regulations: The Federal rules restrict any use of the information to criminally investigate or prosecute any alcohol or drug abuse patient.[facility] HospitalIn the event this information is protected by the Federal Confidentiality of Alcohol and Drug Abuse Patient Records regulations: The Federal rules restrict any use of the information to criminally investigate or prosecute any alcohol or drug abuse patient.[facility] HospitalIn the event this information is protected by the Federal Confidentiality of Alcohol and Drug Abuse Patient Records regulations: The Federal rules restrict any use of the information to criminally investigate or prosecute any alcohol or drug abuse patient.[facility] HospitalIn the event this information is protected by the Federal Confidentiality of Alcohol and Drug Abuse Patient Records regulations: The Federal rules restrict any use of the information to criminally investigate or prosecute any alcohol or drug abuse patient.[facility] HospitalIn the event this information is protected by the Federal Confidentiality of Alcohol and Drug Abuse Patient Records regulations: The Federal rules restrict any use of the information to criminally investigate or prosecute any alcohol or drug abuse patient.[facility] HospitalIn the event this information is protected by the Federal Confidentiality of Alcohol and Drug Abuse Patient Records regulations: The Federal rules restrict any use of the information to criminally investigate or prosecute any alcohol or drug abuse patient.[facility] HospitalIn the event this information is protected by the Federal Confidentiality of Alcohol and Drug Abuse Patient Records regulations: The Federal rules restrict any use of the information to criminally investigate or prosecute any alcohol or drug abuse patient.[facility] HospitalIn the event this information is protected by the Federal Confidentiality of Alcohol and Drug Abuse Patient Records regulations: The Federal rules restrict any use of the information to criminally investigate or prosecute any alcohol or drug abuse patient.[facility] HospitalIn the event this information is protected by the Federal Confidentiality of Alcohol and Drug Abuse Patient Records regulations: The Federal rules restrict any use of the information to criminally investigate or prosecute any alcohol or drug abuse patient.[facility] HospitalIn the event this information is protected by the Federal Confidentiality of Alcohol and Drug Abuse Patient Records regulations: The Federal rules restrict any use of the information to criminally investigate or prosecute any alcohol or drug abuse patient.[facility] HospitalIn the event this information is protected by the Federal Confidentiality of Alcohol and Drug Abuse Patient Records regulations: The Federal rules restrict any use of the information to criminally investigate or prosecute any alcohol or drug abuse patient.[facility] HospitalIn the event this information is protected by the Federal Confidentiality of Alcohol and Drug Abuse Patient Records regulations: The Federal rules restrict any use of the information to criminally investigate or prosecute any alcohol or drug abuse patient.[facility] HospitalIn the event this information is protected by the Federal Confidentiality of Alcohol and Drug Abuse Patient Records regulations: The Federal rules restrict any use of the information to criminally investigate or prosecute any alcohol or drug abuse patient.[facility] HospitalIn the event this information is protected by the Federal Confidentiality of Alcohol and Drug Abuse Patient Records regulations: The Federal rules restrict any use of the information to criminally investigate or prosecute any alcohol or drug abuse patient.[facility] Care Teams (unrecognized sec tion and content) Acid Tank Liner Relationship Specialty Start Date End Date Ila Chen PA-C [address] [place] [address] PCP - General Family Practice 04/07/17 Acid Tank Liner Relationship Specialty Start Date End Date Ila Chen PA-C [address] [place] [address] PCP - General Family Practice 04/07/17 Acid Tank Liner Relationship Specialty Start Date End Date Ila Chen PA-C [address] [place] [address] PCP - General Family Practice 04/07/17 Acid Tank Liner Relationship Specialty Start Date End Date Ila Chen PA-C [address] [place] [address] PCP - General Family Practice 04/07/17 Acid Tank Liner Relationship Specialty Start Date End Date Ila Chen PA-C [address] [facility] [place] [address] PCP - General Family Practice 04/07/17 Acid Tank Liner Relationship Specialty Start Date End Date Ila Chen PA-C [address] [facility] [place] [address] PCP - General Family Practice 04/07/17 Acid Tank Liner Relationship Specialty Start Date End Date Ila Chen PA-C [address] [facility] [place] [address] PCP - General Family Practice 04/07/17 Acid Tank Liner Relationship Specialty Start Date End Date Ila Chen PA-C [address] [facility] [place] [address] PCP - General Family Practice 04/07/17 Acid Tank Liner Relationship Specialty Start Date End Date Ila Chen PA-C [address] [facility] [place] [address] PCP - General Family Practice 04/07/17 Acid Tank Liner Relationship Specialty Start Date End Date Ila Chen PA-C [address] [facility] [place] [address] PCP - General Family Practice 04/07/17 Acid Tank Liner Relationship Specialty Start Date End Date Ila Chen PA-C [address] [facility] [place] [address] PCP - General Family Medicine 04/07/17 Acid Tank Liner Relationship Specialty Start Date End Date Ila Chen PA-C [address] [place] [address] PCP - General Family Medicine 04/07/17 Acid Tank Liner Relationship Specialty Start Date End Date Ila Chen PA-C [address] [place] [address] PCP - General Family Medicine 04/07/17 Acid Tank Liner Relationship Specialty Start Date End Date Ila Chen PA-C [address] [place] [address] PCP - General Family Medicine 04/07/17 Acid Tank Liner Relationship Specialty Start Date End Date Ila Chen PA-C [address] [place] [address] PCP - General Family Medicine 04/07/17 Team Status: Active Member Role Status Dates No Primary Care Physician Primary Care Provider Active Team Status: Active Member Role Status Dates No Primary Care Physician Primary Care Provider Active Health Risk Assessment Attending Provider Active Team Status: Inactive Member Role Status Dates No Primary Care Physician Primary Care Provider Active Dr. Kyle Woods MD Attending Provider Active Acid Tank Liner Relationship Specialty Start Date End Date Ila Chen PA-C [address] [place] [address] PCP - General Family Medicine 04/07/17 Team Status: Active Member Role Status Dates RAVINDER Guerrier Primary Care Provider Active Team Status: Inactive Member Role Status Dates No Primary Care Physician Primary Care Provider Active Dr. Heather Woods DO Attending Provider Active Team Status: Inactive Member Role Status Dates Dr. Heather Woods DO Attending Provider, Referciera g Provider Active Ila CASTELLON PA Primary Care Provider Active Acid Tank Liner Relationship Specialty Start Date End Date Ila Chen PA-C [address] [place] [address] PCP - General Family Medicine 04/07/17 Acid Tank Liner Relationship Specialty Start Date End Date Ila Chen PA-C [address] [facility] [place] [address] PCP - General Family Medicine 04/07/17 Acid Tank Liner Relationship Specialty Start Date End Date Ila Chen PA-C [address] [facility] [place] [address] PCP - General Family Medicine 04/07/17 Acid Tank Liner Relationship Specialty Start Date End Date Ila Chen PA-C [address] [facility] [place] [address] PCP - General Family Medicine 04/07/17 Acid Tank Liner Relationship Specialty Start Date End Date Ila Chen PA-C [address] [facility] [place] [address] PCP - General Family Medicine 04/07/17 Acid Tank Liner Relationship Specialty Start Date End Date Ila Chen PA-C [address] [facility] [place] [address] PCP - General Family Medicine 04/07/17 Acid Tank Liner Relationship Specialty Start Date End Date Ila Chen PA-C [address] [facility] [place] [address] PCP - General Family Medicine 04/07/17 Acid Tank Liner Relationship Specialty Start Date End Date Ila Chen PA-C [address] [facility] [place] [address] PCP - General Family Medicine 04/07/17 Acid Tank Liner Relationship Specialty Start Date End Date Ila Chen PA-C [address] [facility] [place] [address] PCP - General Family Medicine 04/07/17 Acid Tank Liner Relationship Specialty Start Date End Date Ila Chen PA-C [address] [facility] [place] [address] PCP - General Family Medicine 04/07/17 Acid Tank Liner Relationship Specialty Start Date End Date Ila Chen PA-C [address] [facility] [place] [address] PCP - General Family Medicine 04/07/17 Acid Tank Liner Relationship Specialty Start Date End Date Ila Chen PA-C [address] [facility] [place] [address] PCP - General Family Medicine 04/07/17 Acid Tank Liner Relationship Specialty Start Date End Date Ila Chen PA-C [address] [facility] [place] [address] PCP - General Family Medicine 04/07/17 Acid Tank Liner Relationship Specialty Start Date End Date Ila Chen PA-C [address] [facility] [place] [address] PCP - General Family Medicine 04/07/17 Acid Tank Liner Relationship Specialty Start Date End Date Ila Chen PA-C [address] [facility] [place] [address] PCP - General Family Medicine 04/07/17 Acid Tank Liner Relationship Specialty Start Date End Date Ila Chen PA-C [address] [facility] [place] [address] PCP - General Family Medicine 04/07/17 Acid Tank Liner Relationship Specialty Start Date End Date Ila Chen PA-C [address] [place] [address] PCP - General Family Medicine 04/07/17 Acid Tank Liner Relationship Specialty Start Date End Date Ila Chen PA-C [address] [place] [address] PCP - General Family Medicine 04/07/17 Acid Tank Liner Relationship Specialty Start Date End Date Ila Chen PA-C [address] [place], [place] [address] PCP - General Family Medicine 04/07/17 Acid Tank Liner Relationship Specialty Start Date End Date Ila Chen PA-C [address] [place] [address] PCP - General Family Medicine 04/07/17 Acid Tank Liner Relationship Specialty Start Date End Date Prince Chen PA-C PCP - General Family Medicine 04/07/17 Acid Tank Liner Relationship Specialty Start Date End Date Prince Chen PA-C PCP - General Family Medicine 04/07/17 Acid Tank Liner Relationship Specialty Start Date End Date Prince Chen PA-C PCP - General Family Medicine 04/07/17 Acid Tank Liner Relationship Specialty Start Date End Date Prince Chen PA-C PCP - General Family Medicine 04/07/17 Debbie Santana, C++ PROFESSOR.PATTERN DRUM MAKER [address] [place] [address] Mangle Roll Operator Family Medicine 05/19/24 Nichole Corbin APRN.PATTERN DRUM MAKER [address] [place] [address] Mangle Roll Operator Family Medicine 05/19/24 Acid Tank Liner Relationship Specialty Start Date End Date Debbie Santana APRN.PATTERN DRUM MAKER [address] [place] [address] Mangle Roll Operator Family Medicine 05/19/24 Nichole Corbin C++ PROFESSOR.PATTERN DRUM MAKER [address] [facility] [place] [address] Mangle Roll Operator Family Medicine 05/19/24 Acid Tank Liner Relationship Specialty Start Date End Date Prince Chen PA-C PCP - General Family Medicine 04/07/17 Debbie Santana APRN.PATTERN DRUM MAKER [address] [place] [address] Mangle Roll Operator Family Medicine 05/19/24 Nichole Corbin C++ PROFESSOR.PATTERN DRUM MAKER [address] [facility] [place] [address] Mangle Roll Operator Family Medicine 05/19/24 Acid Tank Liner Relationship Specialty Start Date End Date Prince Chen PA-C PCP - General Family Medicine 04/07/17 Debbie Santana C++ PROFESSOR.PATTERN DRUM MAKER [address] [place] [address] Mangle Roll Operator Family Medicine 05/19/24 Nichole Corbin C++ PROFESSOR.PATTERN DRUM MAKER [address] [facility] [place] [address] Mangle Roll Operator Family Medicine 05/19/24 Acid Tank Liner Relationship Specialty Start Date End Date Prince Chen PA-C PCP - General Family Medicine 04/07/17 Debbie Santana APRN.PATTERN DRUM MAKER [address] [place] [address] [facility] Nichole Corbin C++ PROFESSOR.PATTERN DRUM MAKER [address] [facility] [place] [address] [facility]24 Acid Tank Liner Relationship Specialty Start Date End Date Prince Chen PA-C PCP - General Family Medicine 04/07/17 Debbie Santana, C++ PROFESSOR.PATTERN DRUM MAKER [address] [place] [address] [facility] 05/19/24 Nichole Corbin C++ PROFESSOR.PATTERN DRUM MAKER [address] [facility] [place] [address] [facility] 05/19/24 Acid Tank Liner Relationship Specialty Start Date End Date Nichole Corbin C++ PROFESSOR.PATTERN DRUM MAKER [address] [facility] [place] [address] PCP - General Family Medicine 12/20/24 Debbie Santana, C++ PROFESSOR.PATTERN DRUM MAKER [address] [place] [address] [facility] 05/19/24 Acid Tank Liner Relationship Specialty Start Date End Date Nichole Corbin C++ PROFESSOR.PATTERN DRUM MAKER [address] [facility] [place] [address] PCP - General Family Medicine 12/20/24 Debbie Santana, C++ PROFESSOR.PATTERN DRUM MAKER [address] [place] [address] [facility] 05/19/24 Acid Tank Liner Relationship Specialty Start Date End Date Prince Chen PA-C PCP - [facility] 04/07/17 12/19/24 Nichole Corbin, C++ PROFESSOR.PATTERN DRUM MAKER [address] [facility] [place] [address] PCP - [facility] 12/20/24 Debbie Santana, C++ PROFESSOR.PATTERN DRUM MAKER [address] [place] [address] [facility] 05/19/24 Nichole Corbin, C++ PROFESSOR.PATTERN DRUM MAKER [address] [facility] [place] [address] [facility] 05/19/24 12/19/24 Acid Tank Liner Relationship Specialty Start Date End Date Nichole Corbin, C++ PROFESSOR.PATTERN DRUM MAKER [address] [facility] [place] [address] PCP - [facility] 12/20/24 Debbie Santana, C++ PROFESSOR.PATTERN DRUM MAKER [address] [place] [address] [facility] 05/19/24 Goals (unrecognized section and content) Goals may be documented in a n alternate sectionGoals may be documented in an alternate sectionGoals may be documented in an alternate section No data available for this section FOR RECORDS PERTAINING TO PATIENTS WHO ARE OR HAVE BEEN ENROLLED IN A CHEMICAL DEPENDENCY/SUBSTANCEABUSE PROGRAM, SOME INFORMATION MAY BE OMITTED. This clinical summary was aggregated from multiple sources. Caution should be exercised in using it in the provision of clinical care. This summary normalizes information from multiple sources, and as a consequence, information in this document may materially change the coding, format and clinical context of patient data. In addition, data may be omitted in some cases. CLINICAL DECISIONS SHOULD BE BASED ON THE PRIMARY CLINICAL RECORDS. [facility]. provides no warranty or guarantee of the accuracy or completeness of information in this document.
== END | disposition home or self-care (01) ==
PROVIDERS: PCP Physician Assistant; Referring Provider Nurse Practitioner Family; Visit Provider Nurse Practitioner Family
DX: Z01.419 Encounter for gynecological examination (general) (routine) without abnormal findings (principal); Z12.31 Encounter for screening mammogram for malignant neoplasm of breast
CPT/HCPCS: 77063; 77067